=== PATIENT | female | born 1950 | race African-American/Black ===

== ENCOUNTER 2017-02-16 19:21 | Inpatient (IN) | payer MEDICARE, MEDICAID ==
[~2017-02-16] VITALS: Ht 165.1 cm; Wt 140.8 kg
[~2017-02-16 19:21] MED LIST: ALLO300T2 PO; ATOR20TA15 PO; DIAZ5 PO; FURO1TAB60 PO; GABA300C5 PO; HYDR-3535 PO; LANTUS2P SQ; LEVO.05 PO; LISI10TA3 PO; MACR100C2 PO; METO50TA PO; NOVOLOGP2 SQ; PERC5TAB12 PO; STAR120T PO; STAR60TA PO; XARE10TA PO; ZOLO25TA PO
[2017-02-16 19:23] VITALS: BP 141/57; PULSE 81; RESP 22; TEMP 101.6; O2SAT 95
[2017-02-16] MEDS ORDERED: SODIUM CHLOR 0.9% 1000 ML INJ 1,000 ML IV ONE ×2 (19:39)
[2017-02-16] MEDS ORDERED: CITA10TA4 PO (19:43)
[2017-02-16] MEDS ORDERED: ACETAMINOPHEN 325 MG TAB PO ONE (19:45)
[2017-02-16] MEDS ORDERED: METOCLOPRAMIDE HCL 10 MG/2 ML VIAL IV PUSH ONE (19:45)
[2017-02-16] MEDS ORDERED: MORPHINE SULFATE 8 MG/ML INJ IV PUSH ONE (19:45)
--- NOTE | 2017-02-16 19:45 | PD ---
HPI Chief Complaint: Pain: Acute or Chronic Time Seen by Provider: 19:35 Travel History International Travel<30 days: No Contact w/Intl Traveler<30days: No Traveled to known affect area: No History of Present Illness HPI 66-year-old female with history of diabetes, hypertension, here for evaluation of left lower abdominal pain, left hip pain, left flank pain, chest pain, and headache. Patient also complains of generalized malaise. Patient reports left hip pain for a long time. She denies injury. Over the last couple of days she developed left abdominal pain, left chest pain, and left forehead pain which she reports as sharp, constant, no modifying factors. She does feel nauseous but has not vomited. No diarrhea. No cough. No known history of cardiac disease. PFSH Past Medical History Hx Anticoagulant Therapy: Yes Arthritis: Yes Asthma: No Anxiety: Yes Heart Rhythm Problems: No Cancer: No Cardiovascular Problems: Yes High Cholesterol: Yes Chemotherapy: No Chest Pain: No Congestive Heart Failure: No COPD: No Diabetes: Yes Diminished Hearing: No Endocrine: Yes Gastrointestinal Disorders: No Glaucoma: Yes Genitourinary: No Hypertension: Yes Implanted Vascular Access Dvce: No Musculoskeletal: Yes Neurologic: No Reproductive: No Respiratory: Yes Radiation Therapy: No Sleep Apnea: Yes Menopausal: Yes Tubal Ligation: Yes Past Surgical History Other Surgery: Yes (TUBAL LIGATION, R CARPEL TUNNEL, L KNEE) Social History Alcohol Use: Yes (OCCASIONAL) Tobacco Use: No Substance Use: No Allergies-Medications (Allergen,Severity, Reaction): Coded Allergies: Contrast Media (Verified Allergy, Severe, 02/16/17) Uncoded Allergies: dye (Allergy, Mild, 06/16/10) Reported Meds & Prescriptions Reported Meds & Active Scripts Active Valium (Diazepam) 5 Mg Tab 5 Mg PO HS PRN Reported Citalopram (Citalopram Hydrobromide) 10 Mg Tab 10 Mg PO DAILY Starlix (Nateglinide) 120 Mg Tab 120 Mg PO TIDAC Lantus Inj (Insulin Glargine) 1,000 Unit/10 Ml Vial 32 Units SQ HS Novolog Inj (Insulin Aspart) 1,000 Unit/10 Ml Vial 0 SQ DIRECTED Sliding Scale as directed. Xarelto (Rivaroxaban) 10 Mg Tab 10 Mg PO DAILY Allopurinol 300 Mg Tab 300 Mg PO DAILY Atorvastatin (Atorvastatin Calcium) 20 Mg Tab 20 Mg PO DAILY Lortab (Hydrocodone-Acetaminophen) 10-325 Mg Tab 1 Tab PO Q4H PRN Lasix (Furosemide) 40 Mg Tab 40 Mg PO DAILY Synthroid (Levothyroxine Sodium) 50 Mcg Tab 50 Mcg PO DAILY Metoprolol Tartrate 50 Mg Tab 25 Mg PO BID Lisinopril 10 Mg Tab 10 Mg PO DAILY Gabapentin 300 Mg Cap 300 Mg PO BID Review of Systems Except as stated in HPI: all other systems reviewed are Neg Physical Exam Narrative GENERAL: Well-developed, well-nourished, overweight, awake, alert, no acute distress. SKIN: Focused skin assessment warm/dry. No rash. HEAD: Atraumatic. Normocephalic. EYES: Pupils equal and round. No scleral icterus. No injection or drainage. ENT: No nasal bleeding or discharge. Mucous membranes pink and dry. NECK: Trachea midline. No JVD. No nuchal rigidity. CARDIOVASCULAR: Regular rate and rhythm. RESPIRATORY: No accessory muscle use. Clear to auscultation. Breath sounds equal bilaterally. GASTROINTESTINAL: Abdomen soft, round, nondistended. Moderate left lower quadrant tenderness without peritoneal signs. Rest of abdomen is soft and nontender. Normal bowel sounds. MUSCULOSKELETAL: No obvious deformities. No clubbing. No cyanosis. No edema. NEUROLOGICAL: Awake and alert. No obvious cranial nerve deficits. Motor grossly within normal limits. Normal speech. PSYCHIATRIC: Appropriate mood and affect; insight and judgment normal. Data Data Last Documented VS Vital Signs Date Time Temp Pulse Resp B/P Pulse Ox O2 Delivery O2 Flow Rate FiO2 02/16/17 22:12 99.4 74 18 116/48 95 Room Air Orders Electrocardiogram (02/16/17 19:39) Complete Blood Count With Diff (02/16/17 19:39) Comprehensive Metabolic Panel (02/16/17 19:39) Prothrombin Time / Inr (Pt) (02/16/17 19:39) Act Partial Throm Time (Ptt) (02/16/17 19:39) Lactic Acid Sepsis Protocol (02/16/17 19:39) Lipase (02/16/17 19:39) Ckmb (Isoenzyme) Profile (02/16/17 19:39) Troponin I (02/16/17 19:39) Urinalysis - C+S If Indicated (02/16/17 19:39) Influenzae A/B Antigen (02/16/17 19:39) Blood Culture (02/16/17 19:39) Chest, Single Ap (02/16/17 19:39) Blood Glucose (02/16/17 19:39) Ecg Monitoring (02/16/17 19:39) Iv Access Insert/Monitor (02/16/17 19:39) Oximetry (02/16/17 19:39) Oxygen Administration (02/16/17 19:39) Acetaminophen (Tylenol) (02/16/17 19:45) Sodium Chlor 0.9% 1000 Ml Inj (Ns 1000 M (02/16/17 19:39) Sodium Chlor 0.9% 1000 Ml Inj (Ns 1000 M (02/16/17 19:39) Ct Abd/Pel W/O Iv Contrast (02/16/17 19:39) Morphine Inj (Morphine Inj) (02/16/17 19:45) Metoclopramide Inj (Reglan Inj) (02/16/17 19:45) Urine Culture (02/16/17 20:50) Morphine Inj (Morphine Inj) (02/16/17 22:00) Ceftriaxone Inj (Rocephin Inj) (02/16/17 22:00) Admit Order (Ed Use Only) (02/16/17 22:12) Labs Laboratory Tests Test 02/16/17 02/16/17 02/16/17 20:05 20:42 20:50 White Blood Count 13.8 TH/MM3 Red Blood Count 4.40 MIL/MM3 Hemoglobin 11.7 GM/DL Hematocrit 35.1 % Mean Corpuscular Volume 79.7 FL Mean Corpuscular Hemoglobin 26.6 PG Mean Corpuscular Hemoglobin 33.4 % Concent Red Cell Distribution Width 14.6 % Platelet Count 184 TH/MM3 Mean Platelet Volume 12.3 FL Neutrophils (%) (Auto) 82.8 % Lymphocytes (%) (Auto) 10.0 % Monocytes (%) (Auto) 4.6 % Eosinophils (%) (Auto) 0.9 % Basophils (%) (Auto) 1.7 % Neutrophils # (Auto) 11.5 TH/MM3 Lymphocytes # (Auto) 1.4 TH/MM3 Monocytes # (Auto) 0.6 TH/MM3 Eosinophils # (Auto) 0.1 TH/MM3 Basophils # (Auto) 0.2 TH/MM3 CBC Comment AUTO DIFF Differential Comment AUTO DIFF CONFIRMED Platelet Estimate NORMAL Platelet Morphology Comment NORMAL Red Cell Morphology Comment NORMAL Prothrombin Time 12.6 SEC Prothromb Time International 1.1 RATIO Ratio Activated Partial 37.6 SEC Thromboplast Time Sodium Level 139 MEQ/L Potassium Level 5.3 MEQ/L Chloride Level 105 MEQ/L Carbon Dioxide Level 27.3 MEQ/L Anion Gap 7 MEQ/L Blood Urea Nitrogen 24 MG/DL Creatinine 1.90 MG/DL Estimat Glomerular Filtration 32 ML/MIN Rate Random Glucose 221 MG/DL Lactic Acid Level 1.6 mmol/L Calcium Level 8.7 MG/DL Total Bilirubin 0.7 MG/DL Aspartate Amino Transf 25 U/L (AST/SGOT) Alanine Aminotransferase 32 U/L (ALT/SGPT) Alkaline Phosphatase 107 U/L Total Creatine Kinase 90 U/L Troponin I LESS THAN 0.02 NG/ML Total Protein 7.8 GM/DL Albumin 3.0 GM/DL Lipase 96 U/L Urine Color YELLOW Urine Turbidity SLIGHT Urine pH 5.5 Urine Specific Winston 1.014 Urine Protein 100 mg/dL Urine Glucose (UA) NEG mg/dL Urine Ketones TRACE mg/dL Urine Occult Blood TRACE Urine Nitrite NEG Urine Bilirubin NEG Urine Leukocyte Esterase NEG Urine RBC 0-3 /hpf Urine WBC 0-2 /hpf Urine Squamous Epithelial 6-8 /hpf Cells Urine Bacteria MOD /hpf Urine Hyaline Casts 3-5 /lpf Urine Mucus OCC /lpf Microscopic Urinalysis Comment CULTURE INDICATED MDM Medical Decision Making Medical Screen Exam Complete: Yes Emergency Medical Condition: Yes Interpretation(s) EKG: Sinus, rate 80, left axis, normal intervals, no acute ischemic abnormality. Differential Diagnosis Sepsis, colitis, diverticulitis, UTI, cystitis, pyelonephritis, nephrolithiasis , pneumonia, ACS, pneumothorax, PE, meningitis/encephalitis/SAH unlikely Narrative Course Initial vital signs show heart rate 81, blood pressure 141/57, pulse ox 95% on room air, oral temp of 101.6 reason Fahrenheit. CBC shows WBC 13.8, hemoglobin 11.7, hematocrit 35.1, platelets 184, neutrophils 83%. CMP is remarkable for potassium 5.3 with slight hemolysis, BUN 24, creatinine 1.9, GFR 32 Lipase is 96. UA is suggestive of UTI. Chest x-ray: CONCLUSION: Left basilar density likely scarring. CT abdomen pelvis: CONCLUSION: 1. No acute inflammatory process. 2. Enlarged uterus with suspected mass. Neoplastic etiology cannot be excluded. Nonemergent pelvic sonogram recommended. 3. Diverticulosis of the colon. Patient and the patient's family were made aware of all findings. Patient is still complaining of headache which is left frontal, however somewhat improved after morphine. She is a systolic complaining of left-sided abdominal pain. She was started on Rocephin for her UA findings. She still febrile despite receiving a dose of Tylenol. Patient is still complaining of generalized malaise and states that she lives alone and does not feel safe being discharged home at this time. She does meet SIRS criteria. She will be admitted for overnight observation. Case discussed with [facility] hospitalist Dr. Ruby. The patient will be admitted to their service under Dr. Landin. Procedures Procedure Narrative Ultrasound-guided peripheral IV: Because of difficult IV access, was asked by my nurse to place an ultrasound- guided IV line. Using the linear ultrasound probe, a 20-gauge IV catheter was placed in the left antecubital fossa. Site prepped with ChloraPrep prior to insertion. Tolerated well. No complications. Diagnosis Primary Impression: UTI (urinary tract infection) Qualified Code: N39.0 - Urinary tract infection without hematuria, site unspecified Additional Impressions: SIRS (systemic inflammatory response syndrome) Malaise Uterine mass Admitting Information Admitting Physician Requests: Observation Lalito Vasquez MD Feb 16, 2017 19:45
--- NOTE | 2017-02-16 20:07 | RADHPO ---
EXAM DATE/TIME: 02/16/2017 19:59 [facility] COMPARISON: CHEST SINGLE AP, September 12, 2015, 17:55. INDICATIONS : Chest pain. MEDICAL HISTORY : Hypertension. Diabetes mellitus type II. SURGICAL HISTORY : None. ENCOUNTER: Initial ACUITY: 1 day PAIN SCORE: 4/10 LOCATION: Bilateral chest FINDINGS: A single view of the chest demonstrates left basilar density likely scarring. Heart enlarged. Right lung clear. Osseous structures are intact. CONCLUSION: Left basilar density likely scarring. Vitaly Roberson MD on February 16, 2017 at 20:05 Board Certified Radiologist. This report was verified electronically.
--- NOTE | 2017-02-16 20:31 | RADHPO ---
EXAM DATE/TIME: 02/16/2017 20:01 [facility] COMPARISON: No previous studies available for comparison. INDICATIONS : Left lower quadrant abdominal pain. ORAL CONTRAST: No oral contrast ingested. RADIATION DOSE: 22.34 CTDIvol (mGy) MEDICAL HISTORY : Diabetes mellitus type 2. Hypertension. SURGICAL HISTORY : Tubal ligation. ENCOUNTER: Initial ACUITY: 2 days PAIN SCALE: 9/10 LOCATION: Left lower quadrant TECHNIQUE: Volumetric scanning of the abdomen and pelvis was performed. Using automated exposure control and ad justment of the mA and/or kV according to patient size, radiation dose was kept as low as reasonably achievable to obtain optimal diagnostic quality images. FINDINGS: LOWER LUNGS: The visualized lower lungs are clear. LIVER: Homogeneous density without lesion. There is no dilation of the biliary tree. No calcified gallston es. SPLEEN: Normal size without lesion. PANCREAS: Within normal limits. KIDNEYS: Normal in size and shape. There is no mass, stone, or hydronephrosis. ADRENAL GLANDS: Within normal limits. VASCULAR: There is no aortic aneurysm. BOWEL/MESENTERY: Diverticulosis of the descending and sigmoid colon without diverticulitis. There is no free intraper itoneal air or fluid. ABDOMINAL WALL: Within normal limits. RETROPERITONEUM: There is no lymphadenopathy. BLADDER: No wall thickening or mass. REPRODUCTIVE: Enlarged uterus with possible mass. INGUINAL: There is no lymphadenopathy or hernia on the right. Fat-containing left inguinal hernia. MUSCULOSKELETAL: Within normal limits for patient age. CONCLUSION: 1. No acute inflammatory process. 2. Enlarged uterus with suspected mass. Neoplastic etiology cannot be excluded. Nonemergent pelvic so nogram recommended. 3. Diverticulosis of the colon. Vitaly Roberson MD on February 16, 2017 at 20:25 Board Certified Radiologist. This report was verified electronically.
[2017-02-16 20:33] LABS: AUTOMATED NEUTROPHIL # 11.5 TH/MM3 (1.8-7.7); BASOPHIL # 0.2 TH/MM3 (0-0.2); BASOPHIL % 1.7 % (0.0-2.0); EOSINOPHIL # 0.1 TH/MM3 (0-0.4); EOSINOPHIL % 0.9 % (0.0-4.0); HEMATOCRIT 35.1 % (35.0-46.0); LYMPHOCYTE # 1.4 TH/MM3 (1.0-4.8); MEAN CELL VOLUME 79.7 FL (80.0-100.0); MEAN CORPUSCULAR HEMOGLOBIN 26.6 PG (27.0-34.0); MEAN CORPUSCULAR HGB CONC 33.4 % (32.0-36.0); MONO % 4.6 % (0.0-8.0); NEUT % 82.8 % (16.0-70.0); PLATELET COUNT 184 TH/MM3 (150-450); RED CELL DISTRIBUTION WIDTH 14.6 % (11.6-17.2); WHITE BLOOD COUNT 13.8 TH/MM3 (4.0-11.0)
[2017-02-16 20:34] LABS: HEMO FLAGS AUTO DIFF
[2017-02-16 20:59] LABS: PLATELET ESTIMATE SMEAR NORMAL (NORMAL); PLATELET MORPHOLOGY NORMAL (NORMAL); SCAN/DIFF AUTO DIFF CONFIRMED
[2017-02-16 21:00] VITALS: BP 142/48; PULSE 78; RESP 18; TEMP 100.6; O2SAT 95
[2017-02-16 21:05] LABS: CHLORIDE 105 MEQ/L (98-107); SODIUM (NA) 139 MEQ/L (136-145)
[2017-02-16 21:09] LABS: ANION GAP 7 MEQ/L (5-15); BICARBONATE 27.3 MEQ/L (21.0-32.0)
[2017-02-16 21:10] LABS: APTT (PATIENT) 37.6 SEC (24.3-30.1); BLOOD UREA NITROGEN 24 MG/DL (7-18); INTERNATIONAL NORMALIZED RATIO 1.1 RATIO; PROTHROMBIN TIME - PATIENT 12.6 SEC (9.8-11.6)
[2017-02-16 21:12] LABS: ALT (GPT) 32 U/L (10-53); AST (GOT) 25 U/L (15-37); GLOMERULAR FILTRATION RATE 32 ML/MIN (>89)
[2017-02-16 21:15] LABS: ALKALINE PHOSPHATASE 107 U/L (45-117)
[2017-02-16 21:22] LABS: POTASSIUM 5.3 MEQ/L (3.5-5.1)
[2017-02-16 21:24] LABS: BLOOD, URINE TRACE (NEG); GLUCOSE,URINE NEG (NEG); KETONE, URINE TRACE mg/dL (NEG); NITRITE,URINE NEG (NEG); PH, URINE 5.5 (5.0-8.5)
[2017-02-16 21:26] LABS: TOTAL BILIRUBIN ADULT 0.7 MG/DL (0.2-1.0)
[2017-02-16 21:42] VITALS: BP 129/49; PULSE 70; RESP 20; TEMP 100.3; O2SAT 94
[2017-02-16 21:47] LABS: CREATINE KINASE 90 U/L (26-192)
[2017-02-16 21:51] LABS: MUCUS URINE OCC /lpf (OCC); URINE COLOR YELLOW (YELLW/STRAW)
[2017-02-16 21:52] LABS: RBC, URINE 0-3 /hpf (0-3); WBC, URINE 0-2 /hpf (0-5)
[2017-02-16 21:53] LABS: BACTERIA, URINE MOD /hpf; COMMENT (UR) CULTURE INDICATED; CULTURE IF INDICATED CULTURE INDICATED
[2017-02-16] MEDS ORDERED: cefTRIAXone INJ 1,000 MG in SODIUM CHLORIDE 0.9% INJ 100 ML IV ONE (22:00)
[2017-02-16] MEDS ORDERED: MORPHINE SULFATE 4 MG/ML INJ IV PUSH ONE (22:00)
[2017-02-16] MEDS ORDERED: HEPARIN SODIUM - SQ 10,000 UNITS/ML VIAL SQ SCH (22:00)
[2017-02-16 22:12] VITALS: BP 116/48; PULSE 74; RESP 18; TEMP 99.4; O2SAT 95
[2017-02-16] MEDS ORDERED: SENNOSIDES 8.6 MG TAB PO PRN (22:15)
[2017-02-16] MEDS ORDERED: LACTULOSE SYRUP 20 GM/30 ML CUP PO PRN (22:15)
[2017-02-16] MEDS ORDERED: MAGNESIUM HYDROXIDE SUSP 30 ML CUP PO PRN (22:15)
[2017-02-16] MEDS ORDERED: NALOXONE HCL 0.4 MG/ML AMP IV PRN (22:15)
[2017-02-16] MEDS ORDERED: BISACODYL 10 MG SUPP RECTAL PRN (22:15)
[2017-02-16] MEDS: cefTRIAXone INJ 1,000 MG in SODIUM CHLORIDE 0.9% INJ 100 ML IV SCH (22:44)
[2017-02-16] MEDS ORDERED: DEXTROSE 50% IN WATER 50 ML VIAL(D50) IV PRN (23:00)
[2017-02-16] MEDS ORDERED: GLUCAGON 1 MG/ML VIAL OTHER PRN (23:00)
[2017-02-16] MEDS ORDERED: INSULIN DETEMIR 100 UNITS/ML VIAL SQ ONE ×2 (23:45)
[2017-02-17] MEDS: INSULIN NovoLIN REGULAR SUPPLEMENTAL SCALE SQ SCH ×5 (00:04→21:27)
[2017-02-17 00:25] VITALS: BP 135/54; PULSE 60; RESP 20; TEMP 98.4; O2SAT 96
[2017-02-17] MEDS: ACETAMINOPHEN/HYDROcodone 325 MG/10 MG TAB PO PRN ×5 (00:53→21:22)
[2017-02-17 06:00] LABS: AUTOMATED NEUTROPHIL # 8.9 TH/MM3 (1.8-7.7); BASOPHIL # 0.1 TH/MM3 (0-0.2); BASOPHIL % 0.6 % (0.0-2.0); EOSINOPHIL # 0.2 TH/MM3 (0-0.4); EOSINOPHIL % 1.4 % (0.0-4.0); HEMATOCRIT 31.5 % (35.0-46.0); HEMO FLAGS DIFF FINAL; LYMPHOCYTE # 3.2 TH/MM3 (1.0-4.8); MEAN CELL VOLUME 81.9 FL (80.0-100.0); MEAN CORPUSCULAR HEMOGLOBIN 26.8 PG (27.0-34.0); MEAN CORPUSCULAR HGB CONC 32.7 % (32.0-36.0); MONO % 6.3 % (0.0-8.0); NEUT % 67.7 % (16.0-70.0); PLATELET COUNT 154 TH/MM3 (150-450); RED BLOOD COUNT 3.85 MIL/MM3 (4.00-5.30); RED CELL DISTRIBUTION WIDTH 14.6 % (11.6-17.2); WHITE BLOOD COUNT 13.2 TH/MM3 (4.0-11.0)
[2017-02-17 06:03] LABS: POTASSIUM 4.5 MEQ/L (3.5-5.1)
[2017-02-17 06:08] LABS: BICARBONATE 28.5 MEQ/L (21.0-32.0)
[2017-02-17] MEDS: LEVOTHYROXINE SODIUM 50 MCG TAB PO SCH (06:23)
[2017-02-17 08:00] VITALS: BP 122/67; PULSE 53; RESP 20; TEMP 96.3; O2SAT 95
[2017-02-17] MEDS ORDERED: NATEGLINIDE 120 MG PO SCH (08:00)
[2017-02-17] MEDS: METOPROLOL TARTRATE 25 MG TAB PO SCH ×2 (08:02→21:21)
[2017-02-17] MEDS: ALLOPURINOL 300 MG TAB PO SCH (08:20)
[2017-02-17] MEDS: SODIUM CHLORIDE 0.9% FLUSH 10 ML FLUSH IV FLUSH SCH ×2 (08:21→21:00)
[2017-02-17] MEDS: ATORVASTATIN 20 MG TAB PO SCH (08:21)
[2017-02-17] MEDS: GABAPENTIN 300 MG CAP PO SCH ×2 (08:21→21:21)
[2017-02-17] MEDS: FUROSEMIDE 40 MG TAB PO SCH (08:21)
[2017-02-17] MEDS: CITALOPRAM HYDROBROMIDE 20 MG TAB PO SCH (08:21)
[2017-02-17] MEDS: HEPARIN SODIUM - SQ 10,000 UNITS/ML VIAL SQ SCH ×2 (08:22→21:22)
[2017-02-17] MEDS: DOCUSATE SODIUM 50 MG/SENNA 8.6 MG TAB PO SCH ×2 (08:22→21:00)
[2017-02-17 08:51] LABS: MAGNESIUM 2.6 MG/DL (1.5-2.5)
[2017-02-17] MEDS ORDERED: RIVAROXABAN 10 MG TAB PO SCH ×2 (09:00)
--- NOTE | 2017-02-17 09:13 | MH ---
cc: DARIUSZ DAHL MD DATE OF ADMISSION: 02/16/2017 CHIEF COMPLAINT Acute on chronic pain in the hip and headache. HISTORY OF PRESENT ILLNESS This is a 66-year-old morbidly obese -[place] female with past medical-surgical history significant for DVT left leg, history of arthritis, anxiety, morbid obesity, hyperlipidemia, diabetes mellitus, hypertension, history of sleep apnea, history of glaucoma, tubal ligation, right carpal tunnel surgery and left knee surgery, came to the ER at [facility] complaining of left lower quadrant abdominal pain, left hip pain and left flank pain and headache. The patient is complaining of generalized malaise. The patient reports left hip pain, had a long time but denies any injury. Over a couple of days she developed left abdominal pain and left side whole-body pain and also complaining of headache. The pain in the left hip is about 5-6 on scale of 10, constant and dull in nature. No radiation, worse with movement. She also had some headache which is diffuse generalized, 4-5/10, dull and no radiation. Denies any nausea or vomiting. No diarrhea and no constipation. No cough, no history of any cardiac disease. Denies any chest pain at the time of examination. Denies any fever or chills, cough. Denies any blood in stool, black stool. Denies any urinary tract infection symptoms. Denies any neurological symptoms other than headache. Other than that nothing significant. PAST MEDICAL AND SURGICAL HISTORY As dictated above. Also significant for diabetic neuropathy, hypothyroidism, arthritis, gout. SOCIAL HISTORY She drinks alcohol socially. Denies any smoking or drug abuse. Lives at home alone. 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 FAMILY HISTORY Significant for diabetes. ALLERGIES CONTRAST MEDIA, IVP DYE. MEDICATIONS Include: 1. Valium 5 mg p.o. at bedtime p.r.n. for insomnia. 2. Citalopram 10 mg p.o. daily. 3. Starlix 120 mg p.o. t.i.d. 4. Lantus 32 units p.o. at bedtime. 5. NovoLog injection. According to sliding scale. 6. Xarelto 10 mg p.o. daily. 7. Allopurinol 300 mg p.o. daily. 8. Lipitor 20 mg p.o. daily. 9. Lortab 10/325 p.o. q.4 hour p.r.n. pain. 10. Lasix 40 mg p.o. daily. 11. Synthroid 50 mcg p.o. daily. 12. Metoprolol tartrate 50 mg p.o. b.i.d. 13. Lisinopril 10 mg p.o. daily. 14. Gabapentin 300 mg p.o. b.i.d. REVIEW OF SYSTEMS Positive for left hip pain and headache and moderate obesity. All other review of systems are negative. PHYSICAL EXAMINATION GENERAL: This is a 66-year-old morbidly obese female laying on the bed, not in acute distress. VITAL SIGNS: Temperature 98.4, heart rate 60, respirations 20, blood pressure 135/54, O2 saturation 96% on room air. HEENT: Normocephalic, atraumatic. EOMI. PERRL. Oral mucosa moist. NECK: Neck is supple. No visible thyromegaly or neck mass. Trachea central. Generalized morbidly obese. CVS: Regular rate and rhythm. RESPIRATIONS: Clear to auscultation bilaterally. ABDOMEN: Obese, nontender. Bowel sounds audible. EXTREMITIES: No cyanosis or clubbing. Full range of motion of all extremities. NEURO: Awake, alert, oriented x4. No focal deficits. SKIN: Warm and dry. PSYCHE: The patient is cooperative. Mood and affect is normal. LABORATORY DATA Include CBC showed WBC count is high at 13.2. RBC count is low 3.85, hemoglobin low 10.3, hematocrit low 31.5, MCH is low 26.8, platelet count is normal 154. BMP totally unremarkable except for BUN 25 high, creatinine 1.50 high and potassium was 5.3, now it is 4.5, GFR low 42, glucose high 157, calcium 8.2 low. LFTs are normal. Troponin I less than 0.02, albumin 3.0, lipase 96. Total protein 7.8 normal. PT 12.6 high, INR 1.1, APTT 37.6 high. Urine examination done showed trace of ketone, trace of occult blood, 0-3 RBC, 0-2 WBC, 6-8 squamous epithelial cells, moderate bacteria, culture indicated. Urine culture pending. Influenza A and B negative. Blood cultures x2 done negative so far. IMAGING STUDIES Chest x-ray was done and shows left basilar density likely scarring. CT abdomen and pelvis was done and shows no acute inflammatory process, enlarged uterus and suspected mass, neoplastic etiology cannot be excluded, nonemergent pelvic sonogram recommended. Diverticulosis of the colon. ASSESSMENT/PLAN 1. This is a 66-year-old female who came to the ER diagnosed with left hip pain. Check MRI of the left hip. The patient is on pain medicine, will monitor. 2. Left lower quadrant abdominal pain. The patient's CT abdomen and pelvis done shows enlarged uterus with suspected mass neoplastic etiology cannot be excluded, PUPPET MASTER consulted. Check pelvic ultrasound. 3. Diabetes mellitus. ADA 1800 calorie diet. NovoLog low-dose sliding scale. Check blood sugars a.c. and h.s. 4. Headache. Check CT brain, continue with home medication. 5. History of GOUT. Continue home medication. Allopurinol 300 mg p.o. daily. 6. History of hyperlipidemia. Continue with Lipitor 20 mg p.o. daily. 7. History of depression. Continue with Celexa 10 mg p.o. daily. 8. Diabetic neuropathy. Continue with gabapentin 300 mg twice a day. 9. History of left leg DVT. Continue with Xarelto 10 mg p.o. daily. 10. History of hypothyroidism. Continue with levothyroxine 50 mcg p.o. daily. 11. History of insomnia. Continue with diazepam 5 mg p.o. at bedtime. 12. History of constipation. Continue with laxative. 13. Renal insufficiency which is improving. Will monitor. 14. Hyperkalemia which has resolved. 15. Leukocytosis. Will monitor. 16. Anemia. Check iron study, B12, folic acid level. 17. DVT prophylaxis. The patient is on Xarelto. 18. GI prophylaxis with Protonix 40 mg p.o. daily. 19. We are going to manage the patient on a daily basis and make recommendation on a daily basis. Dariusz Dahl MD EA/AMOR /8:23 AM /8:40 AM
[2017-02-17] MEDS: PANTOPRAZOLE SOD 40 MG DELAYED RELEASE TAB PO SCH (09:26)
--- NOTE | 2017-02-17 09:34 | RADHPO ---
EXAM DATE/TIME: 02/17/2017 08:51 [facility] COMPARISON: CT ABDOMEN & PELVIS W/O CONTRAST, February 16, 2017, 20:01. INDICATIONS : Abnormal CT. MEDICAL HISTORY : Hypercholesterolemia. Hypothyroidism. Chronic obstructive pulmonary disease. Hypertension. Sleep apne a. Arthritis. Gout. Glaucoma. SURGICAL HISTORY : Tubal ligation. Total knee replacement, right. ENCOUNTER: Initial ACUITY: 1 day PAIN SCORE: 1/10 LOCATION: Bilateral pelvis MEASUREMENTS: UTERUS: 13.3 x 9.3 x 9.8 cm ENDOMETRIAL STRIPE: 16 mm RIGHT OVARY: 2.6 x 1.6 x 2.1 cm LEFT OVARY: Non visualized FINDINGS: UTERUS: The uterus is enlarged and does contain a 7.6 cm complex mass within the uterus. RIGHT OVARY: Ovary contains no mass or significant cystic lesion. LEFT OVARY: Unable to visualize. MISCELLANEOUS: No free fluid. CONCLUSION: Patient refused transvaginal exam. Complex mass within the uterus with differential diagnosis rangin g from carcinoma to degenerated fibroid. Nonvisualization left ovary There is no free fluid. Martin Buck MD FACR on February 17, 2017 at 9:30 Board Certified Radiologist. This report was verified electronically.
--- NOTE | 2017-02-17 11:06 | RADHPO ---
EXAM DATE/TIME: 02/17/2017 10:43 [facility] COMPARISON: No previous studies available for comparison. INDICATIONS : Headache and generalized malaise. RADIATION DOSE: 62.00 CTDIvol (mGy) MEDICAL HISTORY : Hypertension. Chronic obstructive pulmonary disease. Anticoagulant therapy. Renal disease. Diabetes. SURGICAL HISTORY : Tubal ligation. ENCOUNTER: Initial ACUITY: 3 days PAIN SCALE: 3/10 LOCATION: frontal TECHNIQUE: Multiple contiguous axial images were obtained of the head. Using automated exposure control and adj ustment of the mA and/or kV according to patient size, radiation dose was kept as low as reasonably a chievable to obtain optimal diagnostic quality images. FINDINGS: CEREBRUM: The ventricles are normal for age. No evidence of midline shift, mass lesion, hemorrhage or acute in farction. No extra-axial fluid collections are seen. POSTERIOR FOSSA: The cerebellum and brainstem are intact. The 4th ventricle is midline. The cerebellopontine angle i s unremarkable. EXTRACRANIAL: The visualized portion of the orbits is intact. SKULL: The calvaria is intact. No evidence of skull fracture. CONCLUSION: 1. No acute intracranial abnormality. Unremarkable CT examination of the head. Darryl Vanessa MD on February 17, 2017 at 11:00 Board Certified Radiologist. This report was verified electronically.
--- NOTE | 2017-02-17 11:21 | EKG ---
Date Performed: 02/16/2017 Time Performed: 19:50:06 PTAGE: 66 years EKG: Sinus rhythm . Lateral ST-T changes are nonspecific Borderline ECG Compared to prior tracing no significant change PREVIOUS TRACING : 07/27/2016 19.25 DOCTOR: Vito Dixon Interpretating Date/Time 02/17/2017 11:18:53
[2017-02-17 11:30] LABS: TRANSFERRIN IRON PROFILE 153 MG/DL (200-360)
[2017-02-17 11:55] LABS: FERRITIN 223 NG/ML (8-252); FREE T4 1.01 NG/DL (0.76-1.46)
[2017-02-17 12:00] VITALS: BP 107/56; PULSE 55; RESP 21; TEMP 96.9; O2SAT 93
--- NOTE | 2017-02-17 12:59 | RADHPO ---
EXAM DATE/TIME: 02/17/2017 11:09 [facility] COMPARISON: US PELVIS COMP W/TRANSVAGINAL, February 17, 2017, 11:59. CT ABDOMEN & PELVIS W/O CONTRAST, February 16, 2017 , 20:01. INDICATIONS : Left hip pain for two days. MEDICAL HISTORY : Diabetes mellitus type 2. Hypertension. Renal failure, chronic. SURGICAL HISTORY : Tubal ligation. Right knee replacement, right carpal tunnel sx. ENCOUNTER: Initial ACUITY: 2 day PAIN SCORE: 9/10 LOCATION: Left lateral side of hip. TECHNIQUE: Multiplanar, multisequence MRI examination was performed without contrast. FINDINGS: BONE/CARTILAGE: Small bilateral hip osteophytes. Moderate severity posterior left hip articular cartilage thinning.. LABRUM: Superior labrum is not well evaluated on this study due to adjacent artifact. The anterior labrum and posterior labrum within normal limits. MUSCLES/TENDONS: All of the visualized muscles and tendons are intact. MISCELLANEOUS: Large left-sided uterine mass measuring 10.6 x 7.1 cm on the coronal images. Heterogeneous hyperinten sity on both the T1-weighted and T2-weighted images indicating likely hemorrhagic products within the mass. CONCLUSION: 1. Osteoarthritic findings of the hips with small osteophytes and moderate severity posterior articul ar cartilage thinning on the left. 2. Large left-sided uterine mass with central hemorrhagic products. Maicol Ramirez MD on February 17, 2017 at 12:49 Board Certified Radiologist. This report was verified electronically.
--- NOTE | 2017-02-17 13:04 | RADHPO ---
EXAM DATE/TIME: 02/17/2017 11:59 [facility] COMPARISON: CT ABDOMEN & PELVIS W/O CONTRAST, February 16, 2017, 20:01. CT ABDOMEN & PELVIS W/O CONTRAST, July 162015, 19:19. INDICATIONS : Abnormal CT. MEDICAL HISTORY : Hypercholesterolemia. Chronic obstructive pulmonary disease. Hypertension. Arthritis. Gout. SURGICAL HISTORY : Tubal ligation. Total knee replacement, right. ENCOUNTER: Initial ACUITY: 1 day PAIN SCORE: 2/10 LOCATION: Bilateral pelvis MEASUREMENTS: UTERUS: 13.7 x 9.0 x 10.3 cm ENDOMETRIAL STRIPE: Non visualized RIGHT OVARY: Non visualized LEFT OVARY: Non visualized FINDINGS: UTERUS: Large left posterior fundal uterine mass is again identified. It is predominantly hyperechoic measuri ng 6.1 x 6.5 x 6.8 cm on this examination. It measures approximately [address] and MRI. RIGHT OVARY: Not visualized. LEFT OVARY: Not visualized. MISCELLANEOUS: No free fluid. CONCLUSION: Large predominantly hyperechoic left-sided fundal uterine mass. MRI hip suggests hemorrhagic material within the mass. Potential diagnosis remains large fibroid versus uterine malignancy. Maicol Ramirez MD on February 17, 2017 at 12:58 Board Certified Radiologist. This report was verified electronically.
[2017-02-17 16:00] VITALS: BP 136/68; PULSE 65; RESP 19; TEMP 97.3; O2SAT 94
[2017-02-17 20:00] VITALS: BP 140/62; PULSE 63; RESP 18; TEMP 97.6; O2SAT 93
[2017-02-17] MEDS: cefTRIAXone INJ 1,000 MG in SODIUM CHLORIDE 0.9% INJ 100 ML IV SCH (21:21)
[2017-02-17] MEDS: DIAZEPAM 5 MG TAB PO PRN (21:22)
[2017-02-17] MEDS: INSULIN DETEMIR 100 UNITS/ML VIAL SQ SCH (21:27)
[2017-02-18] VITALS (7 sets, daily range): BP systolic 128–158; BP diastolic 64–78; PULSE 56–61; RESP 17–20; TEMP 97.5–98.6; O2SAT 92–98
[2017-02-18] MEDS: ACETAMINOPHEN/HYDROcodone 325 MG/10 MG TAB PO PRN ×5 (02:48→23:01)
[2017-02-18] MEDS: LEVOTHYROXINE SODIUM 50 MCG TAB PO SCH (06:16)
[2017-02-18] MEDS: INSULIN NovoLIN REGULAR SUPPLEMENTAL SCALE SQ SCH ×4 (06:18→21:35)
[2017-02-18 07:51] LABS: CHLORIDE 107 MEQ/L (98-107); POTASSIUM 4.7 MEQ/L (3.5-5.1); SODIUM (NA) 141 MEQ/L (136-145)
--- NOTE | 2017-02-18 07:51 | HHI.PR ---
Review of Systems Constitutional Constitutional: Fatigue, Weakness GI/Abdomen GI/Abdominal Exam: Abdominal Pain Vitals/Results Intake & Output 02/17/17 02/17/17 02/18/17 15:00 23:00 07:00 Intake Total 480 ml 100 ml Balance 480 ml 100 ml Intake Oral 480 ml IV Total 100 ml # Voids 3 Vital Signs Vital Signs Date Time Temp Pulse Resp B/P Pulse Ox O2 Delivery O2 Flow Rate FiO2 02/18/17 03:48 18 02/18/17 00:00 97.5 59 20 128/64 97 02/17/17 20:00 97.6 63 18 140/62 93 02/17/17 16:00 97.3 65 19 136/68 94 02/17/17 12:00 96.9 55 21 107/56 93 02/17/17 08:00 96.3 53 20 122/67 95 CBC/BMP: 02/17/17 0455 02/17/17 0455 Physical Exam General General Appearance: Well Developed, Well Nourished, No Acute Distress, Comfortable Eyes Eye Exam: Pupils Equal, Pupils Reactive, Sclera White, Extraocular Movement Intact Ears & Nose Ears & Nose Exam: Nasal Mucosa [place], Septum Midline Throat Throat Exam: Oral Mucosa [place] & Moist Neck Neck Exam: Neck Supple, Trachea Midline Pulmonary Resp Exam: Clear Bilaterally, Breath Sounds Equal Cardiology CV Exam: Regular, Normal Sinus Rhythm Gastrointestinal/Abdomen GI Exam: Soft, Non-Tender, Bowel Sounds Present Musculoskeletal MS Exam: Normal Tone Integumentary Skin Exam: Warm, Dry Extremeties Extremities Exam: No Edema Neurologic Neuro Exam: Alert, Awake, Oriented, Speech Clear, Moving All Extremities, No Focal Deficits Psychiatric Psych Exam: Appropriate Responses VTE Prophylaxis VTE Prophylaxis Device: SCDs PUD Prophylasis PUD Prophylaxis: Protonix Assessment/Plan Assessment/Plan ASSESSMENT/PLAN 1. This is a 66-year-old female who came to the ER diagnosed with left hip pain. Checked MRI of the left hip..noted . The patient is on pain medicine, will monitor. 2. Left lower quadrant abdominal pain. The patient's CT abdomen and pelvis done shows enlarged uterus with suspected mass neoplastic etiology cannot be excluded, ..INTERNATIONAL SALES REPRESENTATIVE consulted. Checked pelvic ultrasound noted. 3. Diabetes mellitus. ADA 1800 calorie diet. NovoLog low-dose sliding scale. Check blood sugars a.c. and h.s. 4. Headache. Checked CT brain, noting acute..continue with home medication. 5. History of GOUT. Continue home medication. Allopurinol 300 mg p.o. daily. 6. History of hyperlipidemia. Continue with Lipitor 20 mg p.o. daily. 7. History of depression. Continue with Celexa 10 mg p.o. daily. 8. Diabetic neuropathy. Continue with gabapentin 300 mg twice a day. 9. History of left leg DVT. Continue with Xarelto 10 mg p.o. daily. 10. History of hypothyroidism. Continue with levothyroxine 50 mcg p.o. daily. 11. History of insomnia. Continue with diazepam 5 mg p.o. at bedtime. 12. History of constipation. Continue with laxative. 13. Renal insufficiency which is improving. Will monitor. 14. Hyperkalemia which has resolved. 15. Leukocytosis. resolved. 16. Anemia. Check iron study, B12, folic acid level...noted have Iron deficiency replacement started. 17. DVT prophylaxis. The patient is on Xarelto. 18. GI prophylaxis with Protonix 40 mg p.o. daily. 19. We are going to manage the patient on a daily basis and make recommendation on a daily basis. Check CBC with diff CMP in AM. Discussed Condition with: Patient Dariusz Landin MD Feb 18, 2017 07:51
[2017-02-18 07:53] LABS: AUTOMATED NEUTROPHIL # 6.6 TH/MM3 (1.8-7.7); BASOPHIL % 0.5 % (0.0-2.0); EOSINOPHIL # 0.3 TH/MM3 (0-0.4); EOSINOPHIL % 2.8 % (0.0-4.0); HEMATOCRIT 33.1 % (35.0-46.0); HEMO FLAGS DIFF FINAL; LYMPH % 20.6 % (9.0-44.0); MEAN CELL VOLUME 82.1 FL (80.0-100.0); MEAN CORPUSCULAR HEMOGLOBIN 26.3 PG (27.0-34.0); NEUT % 69.1 % (16.0-70.0); PLATELET COUNT 158 TH/MM3 (150-450); RED BLOOD COUNT 4.03 MIL/MM3 (4.00-5.30); RED CELL DISTRIBUTION WIDTH 14.5 % (11.6-17.2); WHITE BLOOD COUNT 9.6 TH/MM3 (4.0-11.0)
[2017-02-18 07:57] LABS: ANION GAP 6 MEQ/L (5-15); BLOOD UREA NITROGEN 20 MG/DL (7-18)
[2017-02-18 08:00] LABS: ALT (GPT) 22 U/L (10-53); AST (GOT) 10 U/L (15-37); GLOMERULAR FILTRATION RATE 49 ML/MIN (>89)
[2017-02-18 08:02] LABS: TOTAL BILIRUBIN ADULT 0.4 MG/DL (0.2-1.0)
[2017-02-18 08:03] LABS: ALKALINE PHOSPHATASE 95 U/L (45-117)
[2017-02-18] MEDS: GABAPENTIN 300 MG CAP PO SCH ×2 (08:44→20:43)
[2017-02-18] MEDS: PANTOPRAZOLE SOD 40 MG DELAYED RELEASE TAB PO SCH (08:44)
[2017-02-18] MEDS: HEPARIN SODIUM - SQ 10,000 UNITS/ML VIAL SQ SCH ×2 (08:44→20:41)
[2017-02-18] MEDS: ALLOPURINOL 300 MG TAB PO SCH (08:45)
[2017-02-18] MEDS: CITALOPRAM HYDROBROMIDE 20 MG TAB PO SCH (08:45)
[2017-02-18] MEDS ORDERED: POTASSIUM CHLORIDE 25 MEQ EFFERVESCENT TAB PO ONE (08:45)
[2017-02-18] MEDS: DOCUSATE SODIUM 50 MG/SENNA 8.6 MG TAB PO SCH ×2 (08:46→20:42)
[2017-02-18] MEDS: METOPROLOL TARTRATE 25 MG TAB PO SCH ×2 (08:46→20:41)
[2017-02-18] MEDS: ATORVASTATIN 20 MG TAB PO SCH (08:47)
[2017-02-18] MEDS: FUROSEMIDE 40 MG TAB PO SCH (08:47)
[2017-02-18] MEDS: SODIUM CHLORIDE 0.9% FLUSH 10 ML FLUSH IV FLUSH SCH ×2 (08:49→20:43)
[2017-02-18] MEDS ORDERED: INFLUENZA VIRUS VACCINE (QUADRIVALENT) 0.5 ML SYR IM ONE (10:00)
[2017-02-18] MEDS: cefTRIAXone INJ 1,000 MG in SODIUM CHLORIDE 0.9% INJ 100 ML IV SCH (20:40)
[2017-02-18] MEDS: INSULIN DETEMIR 100 UNITS/ML VIAL SQ SCH (20:43)
[2017-02-18] MEDS: DIAZEPAM 5 MG TAB PO PRN (21:33)
[2017-02-19] VITALS: BP 172/72; PULSE 56; RESP 20; TEMP 98; O2SAT 98
[2017-02-19 04:00] VITALS: BP 151/77; PULSE 53; RESP 20; TEMP 97.4; O2SAT 94
[2017-02-19 05:51] LABS: AUTOMATED NEUTROPHIL # 6.6 TH/MM3 (1.8-7.7); BASOPHIL # 0.1 TH/MM3 (0-0.2); BASOPHIL % 0.5 % (0.0-2.0); EOSINOPHIL # 0.2 TH/MM3 (0-0.4); EOSINOPHIL % 2.4 % (0.0-4.0); HEMATOCRIT 32.4 % (35.0-46.0); LYMPH % 24.4 % (9.0-44.0); LYMPHOCYTE # 2.5 TH/MM3 (1.0-4.8); MEAN CELL VOLUME 80.9 FL (80.0-100.0); MEAN CORPUSCULAR HEMOGLOBIN 26.5 PG (27.0-34.0); MEAN CORPUSCULAR HGB CONC 32.8 % (32.0-36.0); MONO % 6.8 % (0.0-8.0); NEUT % 65.9 % (16.0-70.0); PLATELET COUNT 183 TH/MM3 (150-450); RED CELL DISTRIBUTION WIDTH 13.9 % (11.6-17.2); WHITE BLOOD COUNT 10.1 TH/MM3 (4.0-11.0)
[2017-02-19] MEDS: LEVOTHYROXINE SODIUM 50 MCG TAB PO SCH (05:54)
[2017-02-19] MEDS: ACETAMINOPHEN/HYDROcodone 325 MG/10 MG TAB PO PRN ×4 (05:55→21:31)
[2017-02-19 06:11] LABS: HEMO FLAGS DIFF FINAL
[2017-02-19 06:18] LABS: CHLORIDE 104 MEQ/L (98-107); POTASSIUM 4.9 MEQ/L (3.5-5.1); SODIUM (NA) 139 MEQ/L (136-145)
[2017-02-19 06:23] LABS: ANION GAP 5 MEQ/L (5-15); BICARBONATE 30.1 MEQ/L (21.0-32.0)
[2017-02-19 06:26] LABS: ALT (GPT) 21 U/L (10-53); AST (GOT) 11 U/L (15-37); GLOMERULAR FILTRATION RATE 45 ML/MIN (>89)
[2017-02-19] MEDS: INSULIN NovoLIN REGULAR SUPPLEMENTAL SCALE SQ SCH ×4 (06:26→21:42)
[2017-02-19 06:28] LABS: TOTAL BILIRUBIN ADULT 0.4 MG/DL (0.2-1.0)
[2017-02-19 06:29] LABS: ALKALINE PHOSPHATASE 93 U/L (45-117)
[2017-02-19 06:30] LABS: BLOOD UREA NITROGEN 18 MG/DL (7-18)
[2017-02-19 08:00] VITALS: BP 150/56; PULSE 61; RESP 19; TEMP 97.5; O2SAT 95
--- NOTE | 2017-02-19 08:48 | HHI.PR ---
Subjective History of Present Illness Patient have Pelvic ultrasound done shows Uterine mass with bleeding in the center and MRI of left hip shows severe degenerative joint disease d/w RN Donna Cyber Security Analyst input needed. Review of Systems Constitutional Constitutional: Fatigue, Weakness GI/Abdomen GI/Abdominal Exam: Abdominal Pain Vitals/Results Intake & Output 02/18/17 02/18/17 02/19/17 15:00 23:00 07:00 Intake Total 960 ml 360 ml 120 ml Balance 960 ml 360 ml 120 ml Intake Oral 960 ml 360 ml 120 ml # Voids 3 3 2 # Bowel Movements 1 0 0 Vital Signs Vital Signs Date Time Temp Pulse Resp B/P Pulse Ox O2 Delivery O2 Flow Rate FiO2 02/19/17 08:00 97.5 61 19 150/56 95 02/19/17 04:00 97.4 53 20 151/77 94 02/19/17 00:00 98.0 56 20 172/72 98 02/18/17 20:00 98.2 61 20 154/64 98 02/18/17 18:16 59 18 144/65 95 02/18/17 15:58 98.6 56 20 150/69 92 02/18/17 14:16 98.0 58 20 148/78 97 02/18/17 12:00 97.5 57 19 135/67 94 02/18/17 11:15 15 02/18/17 10:16 98.2 56 17 158/75 95 CBC/BMP: 02/19/17 0447 02/19/17 0447 Lab Results Laboratory Tests Test 02/19/17 04:47 White Blood Count 10.1 TH/MM3 Red Blood Count 4.00 MIL/MM3 Hemoglobin 10.6 GM/DL Hematocrit 32.4 % Mean Corpuscular Volume 80.9 FL Mean Corpuscular Hemoglobin 26.5 PG Mean Corpuscular Hemoglobin 32.8 % Concent Red Cell Distribution Width 13.9 % Platelet Count 183 TH/MM3 Mean Platelet Volume 11.4 FL Neutrophils (%) (Auto) 65.9 % Lymphocytes (%) (Auto) 24.4 % Monocytes (%) (Auto) 6.8 % Eosinophils (%) (Auto) 2.4 % Basophils (%) (Auto) 0.5 % Neutrophils # (Auto) 6.6 TH/MM3 Lymphocytes # (Auto) 2.5 TH/MM3 Monocytes # (Auto) 0.7 TH/MM3 Eosinophils # (Auto) 0.2 TH/MM3 Basophils # (Auto) 0.1 TH/MM3 CBC Comment DIFF FINAL Differential Comment Sodium Level 139 MEQ/L Potassium Level 4.9 MEQ/L Chloride Level 104 MEQ/L Carbon Dioxide Level 30.1 MEQ/L Anion Gap 5 MEQ/L Blood Urea Nitrogen 18 MG/DL Creatinine 1.40 MG/DL Estimat Glomerular Filtration 45 ML/MIN Rate Random Glucose 90 MG/DL Calcium Level 8.5 MG/DL Total Bilirubin 0.4 MG/DL Aspartate Amino Transf 11 U/L (AST/SGOT) Alanine Aminotransferase 21 U/L (ALT/SGPT) Alkaline Phosphatase 93 U/L Total Protein 7.5 GM/DL Albumin 2.8 GM/DL Physical Exam General General Appearance: Well Developed, Well Nourished, No Acute Distress, Comfortable Appearance Remarks Morbid obese. Eyes Eye Exam: Pupils Equal, Pupils Reactive, Sclera White, Extraocular Movement Intact Ears & Nose Ears & Nose Exam: Nasal Mucosa [place], Septum Midline Throat Throat Exam: Oral Mucosa [place] & Moist Neck Neck Exam: Neck Supple, Trachea Midline Pulmonary Resp Exam: Clear Bilaterally, Breath Sounds Equal Cardiology CV Exam: Regular, Normal Sinus Rhythm Gastrointestinal/Abdomen GI Exam: Soft, Non-Tender, Bowel Sounds Present Musculoskeletal MS Exam: Normal Tone Integumentary Skin Exam: Warm, Dry Extremeties Extremities Exam: No Edema Neurologic Neuro Exam: Alert, Awake, Oriented, Speech Clear, Moving All Extremities, No Focal Deficits Psychiatric Psych Exam: Appropriate Responses VTE Prophylaxis VTE Remarks Xarelto PUD Prophylasis PUD Prophylaxis: Protonix Assessment/Plan Assessment/Plan ASSESSMENT/PLAN 1. This is a 66-year-old female who came to the ER diagnosed with left hip pain. Checked MRI of the left hip..shows severe degenerative joint disease . The patient is on pain medicine, will monitor. 2. Left lower quadrant abdominal pain. The patient's CT abdomen and pelvis done shows enlarged uterus with suspected mass neoplastic etiology cannot be excluded, ..RN PROVIDER RELATIONS consulted. input needed. Checked pelvic ultrasound shows Uterine mass with bleeding in the center 3. Diabetes mellitus. ADA 1800 calorie diet. NovoLog low-dose sliding scale. Check blood sugars a.c. and h.s. 4. Headache. Checked CT brain, noting acute..continue with home medication. 5. History of GOUT. Continue home medication. Allopurinol 300 mg p.o. daily. 6. History of hyperlipidemia. Continue with Lipitor 20 mg p.o. daily. 7. History of depression. Continue with Celexa 10 mg p.o. daily. 8. Diabetic neuropathy. Continue with gabapentin 300 mg twice a day. 9. History of left leg DVT. Continue with Xarelto 10 mg p.o. daily. 10. History of hypothyroidism. Continue with levothyroxine 50 mcg p.o. daily. 11. History of insomnia. Continue with diazepam 5 mg p.o. at bedtime. 12. History of constipation. Continue with laxative. 13. Renal insufficiency which is improving. Will monitor. 14. Hyperkalemia which has resolved. 15. Leukocytosis. resolved. 16. Anemia. Check iron study, B12, folic acid level...noted have Iron deficiency on replacement. 17. DVT prophylaxis. The patient is on Xarelto. 18. GI prophylaxis with Protonix 40 mg p.o. daily. 19. We are going to manage the patient on a daily basis and make recommendation on a daily basis. Check CBC with diff CMP in AM. Discussed Condition with: Patient Dariusz Landin MD Feb 19, 2017 08:48
[2017-02-19] MEDS: DOCUSATE SODIUM 50 MG/SENNA 8.6 MG TAB PO SCH ×2 (09:00→21:00)
[2017-02-19] MEDS: ALLOPURINOL 300 MG TAB PO SCH (10:05)
[2017-02-19] MEDS: FUROSEMIDE 40 MG TAB PO SCH (10:08)
[2017-02-19] MEDS: PANTOPRAZOLE SOD 40 MG DELAYED RELEASE TAB PO SCH (10:08)
[2017-02-19] MEDS: ATORVASTATIN 20 MG TAB PO SCH (10:08)
[2017-02-19] MEDS: GABAPENTIN 300 MG CAP PO SCH ×2 (10:08→21:33)
[2017-02-19] MEDS: CITALOPRAM HYDROBROMIDE 20 MG TAB PO SCH (10:09)
[2017-02-19] MEDS: METOPROLOL TARTRATE 25 MG TAB PO SCH ×2 (10:09→21:33)
[2017-02-19] MEDS: SODIUM CHLORIDE 0.9% FLUSH 10 ML FLUSH IV FLUSH SCH ×2 (10:10→21:33)
[2017-02-19] MEDS: HEPARIN SODIUM - SQ 10,000 UNITS/ML VIAL SQ SCH (10:10)
[2017-02-19 12:00] VITALS: BP 138/67; PULSE 54; RESP 20; TEMP 98.2; O2SAT 96
--- NOTE | 2017-02-19 12:13 | MB ---
cc: KIRBY IRVING M.D. DATE OF CONSULTATION 02/18/17 HISTORY OF PRESENT ILLNESS The patient is a 66-year-old black female G4, P4 with also three adopted children who went through her menopause in her mid 40s. She is not on hormone replacement therapy who has had her last gynecology visit about 20 years ago. She presented to the emergency room complaining of feeling ill. She was shaking with chills. She does report she had about a 3-day history of left lower quadrant pain that radiated to her back through her buttocks and down her left leg. She was also complaining of frequency of urination. The patient denies any type of gynecology complaints. No vaginal discharge. No bleeding. No pelvic pain. Upon admission and evaluation, the patient was found to have a urinary tract infection and was started on medication. She also underwent imaging of her pelvis via CAT scan and ultrasound which revealed a uterus measuring 13.7 x 10.3 about a 6.1 x 6.5 x 6.8 cm left posterior fundal uterine mass. On MRI, it suggests that the mass is filled with possible hemorrhagic products, nonvisualization of the right and left ovary, no free fluid and no pelvic adenopathy. The imaging also revealed that she had, on her MRI of her hip, osteoarthritic findings of the hip with small osteophytes and moderate severity posterior articular cartilage thinning. Currently today in her bed, the patient reports she is feeling better. PAST MEDICAL HISTORY 1. Diabetes, 2. Sleep apnea, 3. Hypertension, 4. Renal disease that is stage III 5. Elevated cholesterol 6. Hypothyroidism. PAST SURGICAL HISTORY 1. Bilateral tubal ligation, 2. Carpal tunnel 3. Right knee replacement 4. Left knee surgery 5. Fibroid biopsy MEDICATIONS Listed in the chart. ALLERGIES Listed in the chart. SOCIAL HISTORY No tobacco. Occasional alcohol. No drug use. She is and retired. FAMILY HISTORY History f diabetes and hypertension. GYNECOLOGIC HISTORY She has no prior history of abnormal Paps. She has not had a Pap in over 20 years. She does report a history of some gonorrhea when she was young with treatment. OBSTETRICAL HISTORY times four. PHYSICAL EXAMINATION GENERAL: The patient is resting comfortably in her bed. VITAL SIGNS: Stable. She is afebrile. PELVIC: Pelvic exam at this time is difficult to perform in her hospital bed with her obese body habitus and it will be deferred until she follows up to my office. ASSESSMENT/PLAN Postmenopausal uterine mass, possibly a degenerating fibroid, possibly leiomyosarcoma, possibly just a benign fibroid. She also has a thickening of her endometrial lining. RECOMMENDATION My recommendations are for outpatient follow up in my office for a full pelvic exam with Pap smear and endometrial biopsy and then based on those results, I will set up treatment. Thank you for this consult. MD MOISE Gomez/ /3:56 PM /12:13 PM
[2017-02-19] MEDS: RIVAROXABAN 10 MG TAB PO SCH (13:06)
[2017-02-19 16:00] VITALS: BP 163/71; PULSE 55; RESP 20; TEMP 97.3; O2SAT 97
[2017-02-19] MEDS: MORPHINE SULFATE 4 MG/ML INJ IV PUSH PRN ×2 (18:39→23:09)
[2017-02-19 20:00] VITALS: BP 139/65; PULSE 66; RESP 20; TEMP 97.8; O2SAT 96
[2017-02-19] MEDS: cefTRIAXone INJ 1,000 MG in SODIUM CHLORIDE 0.9% INJ 100 ML IV SCH (21:30)
[2017-02-19] MEDS: DIAZEPAM 5 MG TAB PO PRN (21:30)
[2017-02-19] MEDS: INSULIN DETEMIR 100 UNITS/ML VIAL SQ SCH (21:41)
[2017-02-19] MEDS: SODIUM CHLORIDE 0.9% FLUSH 10 ML FLUSH IV FLUSH PRN (23:10)
[2017-02-20] VITALS: BP 164/65; PULSE 69; RESP 20; TEMP 99.4; O2SAT 96
[2017-02-20] MEDS: ACETAMINOPHEN/HYDROcodone 325 MG/10 MG TAB PO PRN ×2 (03:17→08:02)
[2017-02-20 04:00] VITALS: BP 135/64; PULSE 57; RESP 20; TEMP 97.7; O2SAT 94
[2017-02-20] MEDS: MORPHINE SULFATE 4 MG/ML INJ IV PUSH PRN ×2 (04:11→11:14)
[2017-02-20] MEDS: SODIUM CHLORIDE 0.9% FLUSH 10 ML FLUSH IV FLUSH PRN (04:12)
[2017-02-20 05:43] LABS: BASOPHIL # 0.1 TH/MM3 (0-0.2); BASOPHIL % 0.8 % (0.0-2.0); EOSINOPHIL # 0.3 TH/MM3 (0-0.4); EOSINOPHIL % 2.5 % (0.0-4.0); HEMATOCRIT 32.2 % (35.0-46.0); HEMO FLAGS DIFF FINAL; LYMPH % 20.9 % (9.0-44.0); LYMPHOCYTE # 2.1 TH/MM3 (1.0-4.8); MEAN CELL VOLUME 80.6 FL (80.0-100.0); MEAN CORPUSCULAR HEMOGLOBIN 26.1 PG (27.0-34.0); MEAN CORPUSCULAR HGB CONC 32.4 % (32.0-36.0); MONO % 7.2 % (0.0-8.0); NEUT % 68.6 % (16.0-70.0); PLATELET COUNT 180 TH/MM3 (150-450); RED CELL DISTRIBUTION WIDTH 14.1 % (11.6-17.2); WHITE BLOOD COUNT 10.2 TH/MM3 (4.0-11.0)
[2017-02-20 05:52] LABS: CHLORIDE 102 MEQ/L (98-107); SODIUM (NA) 136 MEQ/L (136-145)
[2017-02-20 06:01] LABS: ANION GAP 6 MEQ/L (5-15); BICARBONATE 28.1 MEQ/L (21.0-32.0)
[2017-02-20] MEDS: LEVOTHYROXINE SODIUM 50 MCG TAB PO SCH (06:08)
[2017-02-20] MEDS: INSULIN NovoLIN REGULAR SUPPLEMENTAL SCALE SQ SCH (06:10)
[2017-02-20 06:11] LABS: ALKALINE PHOSPHATASE 91 U/L (45-117); ALT (GPT) 18 U/L (10-53); AST (GOT) 9 U/L (15-37); BLOOD UREA NITROGEN 16 MG/DL (7-18); GLOMERULAR FILTRATION RATE 49 ML/MIN (>89); TOTAL BILIRUBIN ADULT 0.4 MG/DL (0.2-1.0)
--- NOTE | 2017-02-20 07:48 | HHI.PR ---
Subjective History of Present Illness Patient have Pelvic ultrasound done shows Uterine mass with bleeding in the center and MRI of left hip shows severe degenerative joint disease d/w RN Linda Blow Mold Operator input noted need endometrial biopsy as out patient. Review of Systems Constitutional Constitutional: Fatigue, Weakness GI/Abdomen GI/Abdominal Exam: Abdominal Pain Vitals/Results Intake & Output 02/19/17 02/19/17 02/20/17 15:00 23:00 07:00 Intake Total 900 ml Balance 900 ml Intake Oral 900 ml # Voids 5 # Bowel Movements 0 Vital Signs Vital Signs Date Time Temp Pulse Resp B/P Pulse Ox O2 Delivery O2 Flow Rate FiO2 02/20/17 04:00 97.7 57 20 135/64 94 02/20/17 00:00 99.4 69 20 164/65 96 02/19/17 20:00 97.8 66 20 139/65 96 02/19/17 16:00 97.3 55 20 163/71 97 02/19/17 12:00 98.2 54 20 138/67 96 02/19/17 11:07 20 02/19/17 08:00 97.5 61 19 150/56 95 CBC/BMP: 02/20/17 0500 02/20/17 0500 Lab Results Laboratory Tests Test 02/20/17 05:00 White Blood Count 10.2 TH/MM3 Red Blood Count 4.00 MIL/MM3 Hemoglobin 10.4 GM/DL Hematocrit 32.2 % Mean Corpuscular Volume 80.6 FL Mean Corpuscular Hemoglobin 26.1 PG Mean Corpuscular Hemoglobin 32.4 % Concent Red Cell Distribution Width 14.1 % Platelet Count 180 TH/MM3 Mean Platelet Volume 10.8 FL Neutrophils (%) (Auto) 68.6 % Lymphocytes (%) (Auto) 20.9 % Monocytes (%) (Auto) 7.2 % Eosinophils (%) (Auto) 2.5 % Basophils (%) (Auto) 0.8 % Neutrophils # (Auto) 7.0 TH/MM3 Lymphocytes # (Auto) 2.1 TH/MM3 Monocytes # (Auto) 0.7 TH/MM3 Eosinophils # (Auto) 0.3 TH/MM3 Basophils # (Auto) 0.1 TH/MM3 CBC Comment DIFF FINAL Differential Comment Sodium Level 136 MEQ/L Potassium Level 5.0 MEQ/L Chloride Level 102 MEQ/L Carbon Dioxide Level 28.1 MEQ/L Anion Gap 6 MEQ/L Blood Urea Nitrogen 16 MG/DL Creatinine 1.30 MG/DL Estimat Glomerular Filtration 49 ML/MIN Rate Random Glucose 220 MG/DL Calcium Level 9.0 MG/DL Total Bilirubin 0.4 MG/DL Aspartate Amino Transf 9 U/L (AST/SGOT) Alanine Aminotransferase 18 U/L (ALT/SGPT) Alkaline Phosphatase 91 U/L Total Protein 7.5 GM/DL Albumin 2.8 GM/DL Physical Exam General General Appearance: Well Developed, Well Nourished, No Acute Distress, Comfortable Appearance Remarks Morbid obese. Eyes Eye Exam: Pupils Equal, Pupils Reactive, Sclera White, Extraocular Movement Intact Ears & Nose Ears & Nose Exam: Nasal Mucosa [place], Septum Midline Throat Throat Exam: Oral Mucosa [place] & Moist Neck Neck Exam: Neck Supple, Trachea Midline Pulmonary Resp Exam: Clear Bilaterally, Breath Sounds Equal Cardiology CV Exam: Regular, Normal Sinus Rhythm Gastrointestinal/Abdomen GI Exam: Soft, Non-Tender, Bowel Sounds Present Musculoskeletal MS Exam: Normal Tone Integumentary Skin Exam: Warm, Dry Extremeties Extremities Exam: No Edema Neurologic Neuro Exam: Alert, Awake, Oriented, Speech Clear, Moving All Extremities, No Focal Deficits Psychiatric Psych Exam: Appropriate Responses VTE Prophylaxis VTE Remarks Xarelto PUD Prophylasis PUD Prophylaxis: Protonix Assessment/Plan Assessment/Plan ASSESSMENT/PLAN 1. This is a 66-year-old female who came to the ER diagnosed with left hip pain. Checked MRI of the left hip..shows severe degenerative joint disease . The patient is on pain medicine, will monitor. 2. Left lower quadrant abdominal pain. The patient's CT abdomen and pelvis done shows enlarged uterus with suspected mass neoplastic etiology cannot be excluded, .. Blow Mold Operator input noted need endometrial biopsy as out patient.. Checked pelvic ultrasound shows Uterine mass with bleeding in the center 3. Diabetes mellitus. ADA 1800 calorie diet. NovoLog low-dose sliding scale. Check blood sugars a.c. and h.s. 4. Headache. Checked CT brain, noting acute..continue with home medication. 5. History of GOUT. Continue home medication. Allopurinol 300 mg p.o. daily. 6. History of hyperlipidemia. Continue with Lipitor 20 mg p.o. daily. 7. History of depression. Continue with Celexa 10 mg p.o. daily. 8. Diabetic neuropathy. Continue with gabapentin 300 mg twice a day. 9. History of left leg DVT. Continue with Xarelto 10 mg p.o. daily. 10. History of hypothyroidism. Continue with levothyroxine 50 mcg p.o. daily. 11. History of insomnia. Continue with diazepam 5 mg p.o. at bedtime. 12. History of constipation. Continue with laxative. 13. Renal insufficiency which is improving. Will monitor. 14. Hyperkalemia which has resolved. 15. Leukocytosis. resolved. 16. Anemia. Check iron study, B12, folic acid level...noted have Iron deficiency on replacement. 17. DVT prophylaxis. The patient is on Xarelto. 18. GI prophylaxis with Protonix 40 mg p.o. daily. ok to DC home today. F/U with pcp/ obstetrics/gynecology nurse 1 week. Discussed Condition with: Patient Dariusz Landin MD Feb 20, 2017 07:48
[2017-02-20 08:00] VITALS: BP 143/71; PULSE 59; RESP 20; TEMP 98.6; O2SAT 96
[2017-02-20] MEDS ORDERED: FERR324T4 PO (08:16)
[2017-02-20] MEDS: ALLOPURINOL 300 MG TAB PO SCH (08:23)
[2017-02-20] MEDS: METOPROLOL TARTRATE 25 MG TAB PO SCH (08:23)
[2017-02-20] MEDS: GABAPENTIN 300 MG CAP PO SCH (08:23)
[2017-02-20] MEDS: ATORVASTATIN 20 MG TAB PO SCH (08:24)
[2017-02-20] MEDS: FUROSEMIDE 40 MG TAB PO SCH (08:24)
[2017-02-20] MEDS: DOCUSATE SODIUM 50 MG/SENNA 8.6 MG TAB PO SCH (08:24)
[2017-02-20] MEDS: RIVAROXABAN 10 MG TAB PO SCH (08:24)
[2017-02-20] MEDS: PANTOPRAZOLE SOD 40 MG DELAYED RELEASE TAB PO SCH (08:24)
[2017-02-20] MEDS: SODIUM CHLORIDE 0.9% FLUSH 10 ML FLUSH IV FLUSH SCH (08:24)
[2017-02-20] MEDS: CITALOPRAM HYDROBROMIDE 20 MG TAB PO SCH (08:24)
--- NOTE | 2017-02-24 09:14 | MD ---
cc: LONA DAHL MD ADMISSION DATE: 02/18/2017 DISCHARGE DATE: 02/20/2017 Okay to discharge the patient home. CONDITION AT THE TIME OF DISCHARGE Satisfactory. ACTIVITY As tolerated. DIET Cardiac diet, ADA 1800 calorie diet. ALLERGIES CONTRAST MEDIA, IVP DYE. DISCHARGE MEDICATIONS Include: 1. Ferrous sulfate 324 mg p.o. t.i.d. 2. Allopurinol 300 mg p.o. daily. 3. Lipitor 20 mg daily. 4. Citalopram 10 mg daily. 5. Diazepam 5 mg p.o. at bedtime p.r.n. insomnia or muscle relaxant. 6. Lasix 40 mg p.o. daily. 7. Gabapentin 300 mg p.o. b.i.d. 8. Lortab 10/325 p.o. q.4 hours p.r.n. pain. 9. Lantus 32 units subcutaneous at bedtime. 10. Levothyroxine 50 mcg p.o. daily. 11. Lisinopril 10 mg p.o. daily. 12. Metoprolol 25 mg twice a day. 13. Starlix 120 mg p.o. t.i.d. 14. Xarelto 10 mg p.o. daily. The patient advised to follow up with FULL SERVICE VENDING DRIVER and PCP in 1 week. ADMISSION DIAGNOSIS 1. Left lower quadrant abdominal pain. CT abdomen and pelvis showed enlarged uterus with suspected mass. FULL SERVICE VENDING DRIVER saw the patient. Pelvic ultrasound done showed uterine mass with bleeding in the center. POURER OFF saw the patient and wanted to see the patient as an outpatient. The patient advised to see POURER OFF. The patient verbalized understanding. 2. History of headache. CT brain done shows nothing acute. 3. History of gastroesophageal reflux disease. 4. History of hyperlipidemia. 5. History of depression. 6. Diabetic neuropathy. 7. History of left leg DVT. The patient was on Xarelto. 8. History of hypothyroidism. 9. History of insomnia. 10. History of constipation. 11. Renal insufficiency which is improving during hospital stay. 12. Hyperkalemia which resolved. 13. Leukocytosis which resolved. 14. Anemia secondary to iron deficiency. The patient started on iron replacement. HOSPITAL COURSE This is a 66-year-old female admitted with left lower quadrant abdominal pain and also complaining of left hip pain. MRI of the hip done shows severe degenerative joint disease. The patient also had a CT abdomen and pelvis done and shows uterine mass, so the patient had an ultrasound done and shows uterine mass with bleeding in the center. The patient remained stable. The patient's condition was explained to the patient. The patient was seen by Dr. Cynthia Thompson, POURER OFF and she needed endometrial biopsy and Dr. Thompson wanted to see the patient as an outpatient. The patient remained stable during the hospital stay. No acute event happened. Chest x-ray done shows left basilar density likely scarring. The patient had mild leukocytosis which has resolved. The patient has renal insufficiency, creatinine was 1.9, decreased down to 1.3. The patient had iron deficiency. The patient had a B12 of 636 and folic acid 14.7. TSH free T4 is normal. PT 12.6, INR 1.1, hemoglobin was 10.4. The patient was started on ferrous sulfate 324 mg twice a day. The patient's urinalysis did not show any urinary tract infection. The patient's blood culture done was negative for 4 days. Influenza A and B negative. Urine culture final 50-1000 CFU mixed carol. Please see further details in the medical record. Lona Dahl MD EA/AMOR /11:12 AM /8:49 AM
== END 2017-02-20 11:51 | disposition home or self-care (01) | DRG 554 ==
LOC: PHED 19:21 → PHEDA 22:13 → PH3A 02-17 00:25 → OBSVTOIN 02-18 16:38
PROVIDERS: ADMIT Family Medicine; ATTEND Family Medicine
DX: M16.12 Unilateral primary osteoarthritis, left hip (principal); E11.40 Type 2 diabetes mellitus with diabetic neuropathy, unspecified; Z68.43 Body mass index [BMI] 50.0-59.9, adult; N39.0 Urinary tract infection, site not specified; I10 Essential (primary) hypertension; E66.01 Morbid (severe) obesity due to excess calories; E78.5 Hyperlipidemia, unspecified; G47.30 Sleep apnea, unspecified; G89.29 Other chronic pain; E61.1 Iron deficiency; D64.9 Anemia, unspecified; E03.9 Hypothyroidism, unspecified; H40.9 Unspecified glaucoma; M10.9 Gout, unspecified; N28.9 Disorder of kidney and ureter, unspecified; N85.2 Hypertrophy of uterus; Z79.01 Long term (current) use of anticoagulants; Z79.899 Other long term (current) drug therapy; Z86.718 Personal history of other venous thrombosis and embolism; Z96.651 Presence of right artificial knee joint
CPT/HCPCS: 70450; 71010; 73721; 74176; 76830; 76856; 80048; 80053; 81001; 82550; 82607; 82728; 82746; 82948; 83540; 83550; 83605; 83690; 83735; 84100; 84439; 84443; 84466; 84484; 85025; 85610; 85730; 87040; 87086; 87804; 93005; 96361; 96374; 96375; 96376; G0378; J0696; J1644; J2270; J2765; J7030

== ENCOUNTER 2017-04-16 07:14 | Inpatient (IN) | payer MEDICARE, MEDICAID ==
[~2017-04-16] VITALS: Ht 162.6 cm; Wt 146.1 kg
[~2017-04-16 07:14] MED LIST changes: -CITA10TA4 PO; -CITA20TA4 PO; -DIAZ5 PO; -HUMALOG SQ; -LEVO.05 PO; -NIFE30TA61 PO; -NOVOLOGP2 SQ; -OXYC15TA PO
[2017-04-16] MEDS ORDERED: HUMALOG SQ (10:42)
[2017-04-16] MEDS ORDERED: CITA20TA4 PO (10:44)
[2017-04-21] MEDS ORDERED: ceFAZolin 2 GM PREMIX 50 ML ONE (09:23)
[2017-04-21 09:40] VITALS: BP 145/69; PULSE 55; RESP 16; TEMP 98.1; O2SAT 97
[2017-04-21] MEDS ORDERED: SODIUM CHLORID 0.9% 500 ML IV PRN (10:00)
[2017-04-21] MEDS ORDERED: LACTATED RINGER'S 1000 ML IV PRN (10:00)
[2017-04-21] MEDS ORDERED: POVIDONE IODINE 5% (ANTISEPSIS KIT) 4 APPLICATIONS EACH NARE PRN (10:00)
[2017-04-21] MEDS ORDERED: ceFAZolin 2 GM PREMIX 50 ML IV SCH ×2 (10:00→15:00)
[2017-04-21] MEDS ORDERED: CHLORHEXIDINE GLUCONATE 2 % 1 PACK (2 CLOTHS) TOPICAL PRN (10:00)
[2017-04-21] MEDS ORDERED: METOPROLOL TARTRATE 25 MG TAB PO PRN (10:00)
[2017-04-21] MEDS ORDERED: INSULIN HUMAN REGULAR 1,000 UNITS/10 ML VIAL SQ PRN (10:00)
[2017-04-21] MEDS ORDERED: PROPOFOL 200 MG/20 ML AMP IV ONE (12:00)
[2017-04-21] MEDS ORDERED: LACTATED RINGER'S 1000 ML INJ 1,000 ML IV ONE (12:00)
[2017-04-21] MEDS ORDERED: ONDANSETRON HCL 4 MG/2 ML VIAL IV PUSH ONE (12:00)
[2017-04-21] MEDS ORDERED: NEOSTIGMINE 3 MG/3 ML SYR IV ONE (12:00)
[2017-04-21] MEDS ORDERED: diphenhydrAMINE HCL 50 MG/ML VIAL IV PRN (14:15)
[2017-04-21] MEDS ORDERED: oxyCODONE/ACETAMINOPHEN 5 MG/325 MG TAB PO PRN (14:15)
[2017-04-21] MEDS ORDERED: DOCUSATE SODIUM 100 MG CAP PO PRN (14:15)
[2017-04-21] MEDS ORDERED: SODIUM CHLORIDE 0.9% FLUSH 10 ML FLUSH IV FLUSH PRN (14:15)
[2017-04-21] MEDS ORDERED: *ONDANSETRON 4 MG VIAL PERIprocedural Use ONLY ONE (14:23)
[2017-04-21] MEDS ORDERED: *PROMETHAZINE 25 MG/ML VIAL PERIprocedural use ONLY ONE (14:26)
[2017-04-21] MEDS ORDERED: fentaNYL CITRATE 250 MCG/5 ML AMP ONE ×2 (14:29→14:31)
[2017-04-21] MEDS ORDERED: MIDAZOLAM HCL 2 MG/2 ML VIAL ONE (14:29)
[2017-04-21] MEDS ORDERED: *MEPERIDINE 25 MG INJ VIAL PERIprocedural Use ONLY ONE (14:31)
[2017-04-21] MEDS: LACTATED RINGER'S 1000 ML INJ 1,000 ML IV SCH ×2 (14:52→22:08)
[2017-04-21] MEDS ORDERED: *morphine SULFATE 8 MG/ML PERIprocedure ONLY ONE (15:20)
[2017-04-21] MEDS: ACETAMINOPHEN 1000 MG/100 ML VIAL IV SCH ×2 (15:30→23:01)
[2017-04-21] MEDS ORDERED: DEXTROSE 50% IN WATER 50 ML VIAL(D50) IV PRN (16:00)
[2017-04-21] MEDS ORDERED: GLUCAGON 1 MG/ML VIAL OTHER PRN (16:00)
[2017-04-21] MEDS: INSULIN NovoLIN REGULAR SUPPLEMENTAL SCALE SQ SCH ×2 (16:00→22:17)
[2017-04-21] MEDS ORDERED: *ENALAPRILAT 1.25 MG/ML VIAL PERIprocedural Use ONLY ONE (16:01)
[2017-04-21 16:40] VITALS: BP_SYST 172; BP_SYST 196; BP_DIAS 70; BP_DIAS 76; PULSE 57; RESP 18; TEMP 96.9; O2SAT 98
[2017-04-21] MEDS: ONDANSETRON HCL 4 MG/2 ML VIAL IV PUSH PRN ×2 (18:16→23:06)
[2017-04-21] MEDS: MORPHINE SULFATE 4 MG/ML INJ IV PRN ×2 (18:16→23:00)
[2017-04-21 20:00] VITALS: BP 172/63; PULSE 60; RESP 16; TEMP 97.2; O2SAT 96
--- NOTE | 2017-04-21 20:22 | HHI.PR ---
Objective Vital Signs Date Time Temp Pulse Resp B/P Pulse Ox O2 Delivery O2 Flow Rate FiO2 04/21/17 16:40 96.9 57 18 196/76 98 172/70 04/21/17 16:30 97.6 57 26 175/74 100 Nasal Cannula 2 04/21/17 16:00 58 25 176/75 100 Nasal Cannula 2 04/21/17 15:45 59 25 169/72 100 04/21/17 15:30 61 25 186/74 100 Nasal Cannula 2 04/21/17 15:15 61 22 176/78 100 Nasal Cannula 2 04/21/17 15:00 61 24 175/71 100 Nasal Cannula 3 04/21/17 14:45 61 25 171/72 100 Nasal Cannula 3 04/21/17 14:30 59 18 173/72 100 Nasal Cannula 3 04/21/17 14:18 97.7 58 22 175/73 100 Nasal Cannula 3 04/21/17 09:40 98.1 55 16 145/69 97 I/O 04/20/17 04/20/17 04/20/17 04/21/17 04/21/17 04/21/17 07:00 15:00 23:00 07:00 15:00 23:00 Intake Total 1600 ml 270 ml Output Total 750 ml 300 ml Balance 850 ml -30 ml Intake Oral 0 ml IV Total 270 ml Other 1600 ml Output Urine Total 250 ml 300 ml Estimated Blood Loss 500 ml Assessment and Plan Assessment and Plan 66-year-old female with a past medical history of obesity, sleep apnea, hypertension, hyperlipidemia, chronic kidney disease stage III, Right total knee replacement, tubal ligation. She is seen on consultation for medical management especially with her high blood pressure. She is status post total hysterectomy with a bilateral salpingo-oophorectomy today 04/21/17 Preliminary frozen section showed endometrial cancer, Patient seen and examined in room 701 Full consultation to follow Thank you for this consultation Will follow her along with you on a daily basis while hospitalized Discussed with son Discussed with nurse Jimi Ruby MD Apr 21, 2017 20:22
--- NOTE | 2017-04-21 22:11 | MB ---
cc: FINN LARA MD DATE OF CONSULTATION 04/21/2017 DATE OF 1950 DATE OF ADMISSION 04/21/2017 REASON FOR CONSULTATION Medical management. HISTORY OF PRESENT ILLNESS The patient is currently in the postanesthesia care unit setting postoperative from exploratory laparotomy, [facility]. The patient is morbidly obese, uses C-PAP at home for sleep apnea. Family had stated to the nurse that her C-PAP machine is broken so she will be placed on one here at the hospital. She has multiple medical comorbidities that we will assist with management while the patient is in the hospital. She has had a recent diagnosis of uterine mass. Currently the patient is drowsy, arouses to verbal stimuli but goes right back off to sleep. She is not having any chest pain. No shortness of breath. The patient has had some mild postoperative nausea but no vomiting. PAST MEDICAL HISTORY Includes: 1. Diabetes. 2. History of deep venous thrombosis. 3. History of atypical chest pain. 4. Hypertension. 5. Hyperlipidemia. 6. Morbid obesity. 7. Hypokalemia. 8. Uterine mass. 9. . 10. Urinary tract infection. 11. Malaise. 12. Umbilical hernia. Most of this information is being gathered from the records. PAST SURGICAL HISTORY Recent surgical history: Today [facility]. Unknown for any other surgery at this time. There is no family present to assist with information. ALLERGIES CONTRAST MEDIA AND DYE. MEDICATIONS Reconciled. Currently in process. SOCIAL HISTORY The patient does have a daughter who is a supportive family member. Otherwise medical history has not yet been evaluated. REVIEW OF SYSTEMS Unable to obtain secondary to the patient's immediate postop lethargy. PHYSICAL EXAMINATION VITAL SIGNS: Temperature is 98.1, pulse 55, respiratory rate 16, blood pressure 145/69, O2 sat 97% currently on room air or O2 per 2 liters as needed. GENERAL: Morbidly obese, black female looks to be her stated age resting in the bed. No shortness of breath. No acute pain. SKIN: [place] mucous membranes, warm and dry. HEENT: Atraumatic, normocephalic. Pupils equal, round, reactive to light and accommodation at 1-2. Mucous membranes are dry but no exudate. No oral exudate. NECK: Supple. CARDIOVASCULAR: S1-S2. Rhythm is slow, mildly irregular. She has minimal trace of lower extremity edema. Extremities are warm. LUNGS: Sounds are essentially clear with low air volumes but no wheezing, rhonchi or rales heard. ABDOMEN: Round, taut, bowel sounds are soft and minimal. The patient has abdominal binder on. MUSCULOSKELETAL: Randomly moves all extremities with purpose. NEUROLOGIC: She is very drowsy, postoperative sedation. But she will arouse to mild verbal stimuli for short periods of time. Speech is clear. PSYCHIATRIC: Mood and affect are appropriate. LABORATORY DATA Diagnostic data obtained from the records where preop labs show white blood cell count 8.9, hemoglobin 11.7, platelet count 168. BUN 23, creatinine 1.3. Urinalysis shows a trace of leukocyte esterase. ASSESSMENT AND PLAN 1. Uterine mass. The patient is status post exploratory laparotomy with ROSA MARIA-BSO. 2. Obstructive sleep apnea. 3. History of hypertension. 4. Morbid obesity. 5. Possible urinary tract infection. Our plan is to monitor all of her medical comorbidities which will include her vital signs q.4h and as warranted. Intake and output with special attention to urine output after Phoenix is removed. Pain management. Antibiotics as warranted. The patient is postoperative pain management and postoperative care will be per the surgical team. We will monitor Accu-Cheks before meals and bedtime with sliding scale insulin. We will recheck her labs in the morning. Sequential compression devices for deep venous thrombosis prophylaxis preop. As needed medications for any blood pressure abnormalities. Please note that the daughter called while the patient was in the postanesthesia care unit area and spoke to the nurse. She states that her mother does not know anything about cancer and that request no one speak to her until her daughter is present with her. Thank you very much for this consultation. We will continue to follow. Dictated by: WADE Rojas MD EVERTON Snyder/BLANK /4:00 PM /9:44 PM
[2017-04-21] MEDS: SODIUM CHLORIDE 0.9% FLUSH 10 ML FLUSH IV FLUSH SCH (22:56)
[2017-04-21 22:57] VITALS: BP 154/66; PULSE 68; RESP 18; TEMP 97.6; O2SAT 98
[2017-04-21] MEDS: ceFAZolin 2 GM PREMIX 50 ML IV SCH (22:59)
[2017-04-22] VITALS (8 sets, daily range): BP systolic 142–179; BP diastolic 53–79; PULSE 71–78; RESP 16–18; TEMP 96.2–97.8; O2SAT 95–98
[2017-04-22] MEDS: ACETAMINOPHEN 1000 MG/100 ML VIAL IV SCH ×2 (03:00→09:00)
[2017-04-22] MEDS: ceFAZolin 2 GM PREMIX 50 ML IV SCH ×2 (04:06→12:06)
[2017-04-22] MEDS: MORPHINE SULFATE 4 MG/ML INJ IV PRN ×5 (04:07→20:55)
[2017-04-22] MEDS: ONDANSETRON HCL 4 MG/2 ML VIAL IV PUSH PRN ×2 (04:08→12:06)
[2017-04-22] MEDS: oxyCODONE/ACETAMINOPHEN 10 MG/325 MG TAB PO PRN ×5 (05:32→23:48)
[2017-04-22] MEDS: LACTATED RINGER'S 1000 ML INJ 1,000 ML IV SCH (06:08)
[2017-04-22] MEDS: INSULIN NovoLIN REGULAR SUPPLEMENTAL SCALE SQ SCH ×4 (06:53→20:48)
[2017-04-22 07:48] LABS: BASOPHIL % 0.3 % (0.0-2.0); EOSINOPHIL % 0.2 % (0.0-4.0); HEMATOCRIT 36.6 % (35.0-46.0); HEMO FLAGS DIFF FINAL; LYMPH % 14.1 % (9.0-44.0); LYMPHOCYTE # 1.8 TH/MM3 (1.0-4.8); MEAN CELL VOLUME 82.9 FL (80.0-100.0); MEAN CORPUSCULAR HGB CONC 31.4 % (32.0-36.0); NEUT % 79.4 % (16.0-70.0); PLATELET COUNT 184 TH/MM3 (150-450); RED BLOOD COUNT 4.41 MIL/MM3 (4.00-5.30); RED CELL DISTRIBUTION WIDTH 16.5 % (11.6-17.2); WHITE BLOOD COUNT 12.5 TH/MM3 (4.0-11.0)
[2017-04-22 08:16] LABS: BICARBONATE 28.4 MEQ/L (21.0-32.0); POTASSIUM 4.8 MEQ/L (3.5-5.1)
[2017-04-22] MEDS: SODIUM CHLORIDE 0.9% FLUSH 10 ML FLUSH IV FLUSH SCH ×2 (09:00→20:36)
--- NOTE | 2017-04-22 13:42 | HHI.PR ---
Subjective Remarks Pt with slight nausea, no vomitting, co pain and too painful to move, no flatus Objective Vital Signs Vital Signs Date Time Temp Pulse Resp B/P Pulse Ox O2 Delivery O2 Flow Rate FiO2 04/22/17 13:09 18 04/22/17 13:09 18 04/22/17 12:00 97.6 74 18 150/56 96 04/22/17 08:04 98 Nasal Cannula 1.00 04/22/17 08:00 97.8 74 18 179/79 96 04/22/17 07:55 18 04/22/17 04:00 96.2 71 18 145/53 98 04/22/17 00:38 16 04/21/17 22:57 97.6 68 18 154/66 98 04/21/17 20:00 97.2 60 16 172/63 96 04/21/17 19:45 Nasal Cannula 1.00 04/21/17 16:40 96.9 57 18 196/76 98 172/70 04/21/17 16:30 97.6 57 26 175/74 100 Nasal Cannula 2 04/21/17 16:00 58 25 176/75 100 Nasal Cannula 2 04/21/17 15:45 59 25 169/72 100 04/21/17 15:30 61 25 186/74 100 Nasal Cannula 2 04/21/17 15:15 61 22 176/78 100 Nasal Cannula 2 04/21/17 15:00 61 24 175/71 100 Nasal Cannula 3 04/21/17 14:45 61 25 171/72 100 Nasal Cannula 3 04/21/17 14:30 59 18 173/72 100 Nasal Cannula 3 04/21/17 14:18 97.7 58 22 175/73 100 Nasal Cannula 3 I/O 04/21/17 04/21/17 04/21/17 04/22/17 04/22/17 04/22/17 07:00 15:00 23:00 07:00 15:00 23:00 Intake Total 1600 ml 510 ml 240 ml Output Total 750 ml 1075 ml 800 ml Balance 850 ml -565 ml -560 ml Intake Oral 240 ml 240 ml IV Total 270 ml Other 1600 ml Output Urine Total 250 ml 1075 ml 800 ml Estimated Blood Loss 500 ml Result Diagram: 04/22/17 0550 04/22/17 0550 Objective Remarks Chest is clear, regular rate and rhythm. Abdomen is soft and non-distended. Incision is clean and dry. Ext no CCE. 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 Pain management-encourage IV tylenol to decrease need for narcotics to decrease nausea and allow good return of bowel function. 2. D/C pina 3. encourage ambulation 4 appreciate the medical team's involvement Cynthia Benton MD Apr 22, 2017 13:42
--- NOTE | 2017-04-22 16:08 | HHI.PR ---
Subjective Remarks Resting in bed Multiple family members Phoenix catheter in place plan for DC today and monitor for any urinary retention Encouraged to drink and take by mouth fluids Objective Objective Results - Vital Signs Date Time Temp Pulse Resp B/P Pulse Ox O2 Delivery O2 Flow Rate FiO2 04/22/17 15:40 96 Nasal Cannula 1.00 04/22/17 13:09 18 04/22/17 13:09 18 04/22/17 12:00 97.6 74 18 150/56 96 04/22/17 08:04 98 Nasal Cannula 1.00 04/22/17 08:00 97.8 74 18 179/79 96 04/22/17 07:55 18 04/22/17 04:00 96.2 71 18 145/53 98 04/22/17 00:38 16 04/21/17 22:57 97.6 68 18 154/66 98 04/21/17 20:00 97.2 60 16 172/63 96 04/21/17 19:45 Nasal Cannula 1.00 04/21/17 16:40 96.9 57 18 196/76 98 172/70 04/21/17 16:30 97.6 57 26 175/74 100 Nasal Cannula 2 I/O 04/21/17 04/21/17 04/21/17 04/22/17 04/22/17 04/22/17 06:59 14:59 22:59 06:59 14:59 22:59 Intake Total 1600 ml 510 ml 240 ml Output Total 750 ml 1075 ml 800 ml Balance 850 ml -565 ml -560 ml Intake Oral 240 ml 240 ml IV Total 270 ml Other 1600 ml Output Urine Total 250 ml 1075 ml 800 ml Estimated Blood Loss 500 ml Result Diagram: 04/22/17 0550 04/22/17 0550 ROS General: Fatigue, Weakness, Other (10 point ROS done positives noted) GI: Abdominal Pain (lower abdominal around the incision site) Skin: Other (obesity) Physical Exam Physical Exam PHYSICAL EXAMINATION GENERAL: This is a obese female who appears to be in no acute distress. She is alert and awake, answering questions appropriately HEAD: Normocephalic Facial features appear symmetric. OROPHARYNGEAL: Oropharynx clear NECK: Supple, short, obese Trachea midline without deviation. CARDIAC: Regular rhythm, LUNGS: Mild diminished sounds to auscultation bilaterally. Volumes are low, encouraged to turn cough and deep breathe ABDOMEN: Soft, tenderness at surgical site, dressing clean dry and intact, Bowel sounds soft, passing no gas yet EXTREMITIES: Trace LE edema. NEUROLOGICAL: Patient mood and affect appropriate SKIN:Warm and dry A/P Assessment and Plan 1. Uterine mass. The patient is status post exploratory laparotomy with ROSA MARIA-BSO. 2. Obstructive sleep apnea. 3. History of hypertension. 4. Morbid obesity. 5. Possible urinary tract infection. Vital signs reviewed, home medications restarted as warranted, BP 150/56, subcutaneous heparin, if ok with surgeon Labs reviewed anemia stable at 11.5, mild leukocytosis 12.5, creatinine 1.3 to, noted elevated blood sugars since back to her room currently 212. Monitor bowel regimen Increase activity, Phoenix catheter to be DC'd, on a doctor for any urinary retention, encourage by mouth fluids Uterine mass, patient is status post ROSA MARIA Postop day 1, findings of the uterine mass and cancer was discussed in detail with [employer] [employer] surgeon, all questions were answered with patient and family. Supportive care to patient and family Hypertension, medications were restarted today will continue to monitor vital signs every 4 and when necessary Diabetes mellitus type 2, Accu-Cheks before meals and at bedtime with sliding scale, restarted her regular home insulin. Blood sugars have been in the mid 200s for the last 24 hours Morbid obesity encouraged activity and dangling on side of bed today possible. Will have physical therapy come and worked with patient to maintain her mobility, Will check UA for any UTI Discussed with patient Discussed with nurse Discussed with Dr. Ruby, seen on her behalf Richa Ortez Apr 22, 2017 16:08
[2017-04-22] MEDS: LISINOPRIL 10 MG TAB PO SCH (16:26)
[2017-04-22] MEDS: CITALOPRAM HYDROBROMIDE 20 MG TAB PO SCH (16:27)
[2017-04-22] MEDS: METOPROLOL TARTRATE 50 MG TAB PO SCH ×2 (16:27→20:35)
[2017-04-22] MEDS: GABAPENTIN 300 MG CAP PO SCH ×2 (16:31→20:35)
[2017-04-22] MEDS: FUROSEMIDE 40 MG TAB PO SCH (16:31)
[2017-04-22] MEDS ORDERED: NATEGLINIDE 120 MG PO SCH (17:00)
[2017-04-22] MEDS ORDERED: NATEGLINIDE PO SCH (17:00)
[2017-04-22 18:42] LABS: BLOOD, URINE MOD (NEG); GLUCOSE,URINE NEG (NEG); KETONE, URINE NEG (NEG); MUCUS URINE FEW /lpf (OCC); NITRITE,URINE NEG (NEG); SQUAMOUS EPITHELIAL CELL URINE 1 /hpf (0-5); URINE COLOR YELLOW (YELLW/STRAW)
[2017-04-22 18:45] LABS: COMMENT (UR) CATH-CULTURE IND; CULTURE IF INDICATED CATH CULTURE IND
[2017-04-22] MEDS: INSULIN DETEMIR 100 UNITS/ML VIAL SQ SCH (20:48)
[2017-04-22] MEDS ORDERED: HEPARIN SODIUM - SQ 10,000 UNITS/ML VIAL SQ SCH (21:00)
[2017-04-22] MEDS ORDERED: RESP: ALBUTEROL 2.5 MG/IPRATROPIUM 0.5 MG NEB (PRN) NEB (21:00)
[2017-04-22] MEDS ORDERED: cloNIDine HCL 0.1 MG TAB PO PRN (21:00)
[2017-04-22] MEDS ORDERED: INSULIN GLARGINE 1,000 UNITS/10 ML VIAL SQ SCH (21:00)
[2017-04-23] VITALS (10 sets, daily range): BP systolic 109–149; BP diastolic 53–73; PULSE 54–75; RESP 16–20; TEMP 96–98.5; O2SAT 90–100
[2017-04-23] MEDS: oxyCODONE/ACETAMINOPHEN 10 MG/325 MG TAB PO PRN ×4 (05:25→20:57)
[2017-04-23] MEDS: INSULIN NovoLIN REGULAR SUPPLEMENTAL SCALE SQ SCH ×4 (06:25→21:07)
[2017-04-23] MEDS ORDERED: HEPARIN SODIUM - SQ 10,000 UNITS/ML VIAL SQ SCH (10:00)
[2017-04-23] MEDS: ATORVASTATIN 20 MG TAB PO SCH (10:27)
[2017-04-23] MEDS: LISINOPRIL 10 MG TAB PO SCH (10:27)
[2017-04-23] MEDS: GABAPENTIN 300 MG CAP PO SCH ×2 (10:27→20:55)
[2017-04-23] MEDS: METOPROLOL TARTRATE 50 MG TAB PO SCH ×2 (10:27→20:56)
[2017-04-23] MEDS: FUROSEMIDE 40 MG TAB PO SCH (10:27)
[2017-04-23] MEDS: ALLOPURINOL 300 MG TAB PO SCH (10:28)
[2017-04-23] MEDS: SODIUM CHLORIDE 0.9% FLUSH 10 ML FLUSH IV FLUSH SCH ×2 (10:37→20:57)
[2017-04-23] MEDS: SODIUM CHLOR 0.9% 1000 ML INJ 1,000 ML IV SCH ×2 (10:37→20:58)
--- NOTE | 2017-04-23 11:18 | HHI.PR ---
Subjective Subjective Remarks sleepy not voiding much pain controlled no fever states she has been out of bed Review of Systems Constitutional Constitutional Remarks 12 point ros completed, negative except as noted above Vitals/Results Intake & Output 04/22/17 04/22/17 04/23/17 15:00 23:00 07:00 Intake Total 2050 ml 950 ml 1100 ml Output Total 800 ml Balance 1250 ml 950 ml 1100 ml Intake Oral 1200 ml 150 ml IV Total 850 ml 950 ml 950 ml Output Urine Total 800 ml Bladder Scan Volume Amount 64 ml # Voids 0 # Bowel Movements 0 Vital Signs Vital Signs Date Time Temp Pulse Resp B/P Pulse Ox O2 Delivery O2 Flow Rate FiO2 04/23/17 09:43 92 21 04/23/17 07:30 97.8 60 20 127/60 90 04/23/17 04:00 96.0 54 18 127/54 100 04/23/17 02:09 98 30 04/23/17 00:00 97.7 75 18 149/73 96 04/22/17 23:54 98 BiPAP 30 04/22/17 23:54 98 30 04/22/17 20:27 96 2.00 04/22/17 20:00 97.7 74 16 142/62 95 04/22/17 16:00 97.1 78 18 155/65 95 04/22/17 15:40 96 Nasal Cannula 1.00 04/22/17 13:09 18 04/22/17 13:09 18 04/22/17 12:00 97.6 74 18 150/56 96 CBC/BMP: 04/22/17 0550 04/22/17 0550 Lab Results Laboratory Tests Test 04/22/17 16:50 Urine Color YELLOW Urine Turbidity CLEAR Urine pH 5.0 Urine Specific [place] 1.010 Urine Protein NEG mg/dL Urine Glucose (UA) NEG mg/dL Urine Ketones NEG mg/dL Urine Occult Blood MOD Urine Nitrite NEG Urine Bilirubin NEG Urine Urobilinogen LESS THAN 2.0 MG/DL Urine Leukocyte Esterase MOD Urine RBC 5 /hpf Urine WBC 7 /hpf Urine Squamous Epithelial 1 /hpf Cells Urine Mucus FEW /lpf Microscopic Urinalysis Comment CATH-CULTURE IND Microbiology Microbiology 04/22/17 Urine Culture, Received Pending Physical Exam General General Appearance: Well Developed, Well Nourished, No Acute Distress, Comfortable, Sleeping Eyes Eye Exam: Pupils Equal, Pupils Reactive Ears & Nose Ears & Nose Exam: Nasal Mucosa Oden Throat Throat Exam: Oral Mucosa Oden & Moist Neck Neck Exam: Neck Supple, Trachea Midline Pulmonary Resp Exam: Breath Sounds Equal Cardiology CV Exam: Regular Gastrointestinal/Abdomen GI Exam: Soft, Non-Tender, Bowel Sounds Present, Non-Distended GI Remarks abd. incision with stable binder in place Musculoskeletal MS Exam: Joints Intact Integumentary Skin Exam: Warm, Dry Extremeties Extremities Exam: No Edema, Pedal Pulses Palpable Neurologic Neuro Exam: Awake, Oriented, Speech Clear, Moving All Extremities, No Focal Deficits Psychiatric Psych Exam: Appropriate Responses VTE Prophylaxis VTE Remarks Xarelto Assessment/Plan Assessment/Plan 1. Uterine mass. The patient is status post exploratory laparotomy with ROSA MARIA-BSO. 2. Obstructive sleep apnea. 3. History of hypertension. 4. Morbid obesity. 5. Possible urinary tract infection. 6. Hx DVT 7. Obesity 8. DM II Plan post op care stable not voiding much continue IVF [employer]IC following continue with accuchecks ISS BP control, monitor closely UA + UTI, culture pending BIPAP at HS enc. IS Restarted on Xarelto Enc. inc mobility, OOB PT eval Labs in am Discussed with patient Discussed with nurse Discussed with Dr. Ruby This patient was seen by myself and Dr. Ruby, this note is written on his behalf. Sharmaine Velazquez Apr 23, 2017 11:18
[2017-04-23] MEDS: MORPHINE SULFATE 4 MG/ML INJ IV PRN ×2 (12:28→22:19)
[2017-04-23] MEDS: cefTRIAXone INJ 1,000 MG in SODIUM CHLORIDE 0.9% INJ 100 ML IV SCH (12:29)
--- NOTE | 2017-04-23 12:52 | HHI.PR ---
Subjective Remarks Pt feeling better today, pain better controlled, started to pass flatus, OOB to bathroom, no nausea, pt has not voided yet Objective Vital Signs Vital Signs Date Time Temp Pulse Resp B/P Pulse Ox O2 Delivery O2 Flow Rate FiO2 04/23/17 12:29 16 04/23/17 11:30 98.2 61 20 109/53 91 04/23/17 09:43 92 21 04/23/17 07:30 97.8 60 20 127/60 90 04/23/17 04:00 96.0 54 18 127/54 100 04/23/17 02:09 98 30 04/23/17 00:00 97.7 75 18 149/73 96 04/22/17 23:54 98 BiPAP 30 04/22/17 23:54 98 30 04/22/17 20:27 96 2.00 04/22/17 20:00 97.7 74 16 142/62 95 04/22/17 16:00 97.1 78 18 155/65 95 04/22/17 15:40 96 Nasal Cannula 1.00 04/22/17 13:09 18 I/O 04/22/17 04/22/17 04/22/17 04/23/17 04/23/17 04/23/17 07:00 15:00 23:00 07:00 15:00 23:00 Intake Total 240 ml 2050 ml 950 ml 1100 ml Output Total 800 ml 800 ml Balance -560 ml 1250 ml 950 ml 1100 ml Intake Oral 240 ml 1200 ml 150 ml IV Total 850 ml 950 ml 950 ml Output Urine Total 800 ml 800 ml Bladder Scan Volume Amount 64 ml # Voids 0 # Bowel Movements 0 Result Diagram: 04/22/17 0550 04/22/17 0550 Objective Remarks Chest is clear, regular rate and rhythm. Abdomen is soft , slightly distended Incision is clean and dry. Ext no CCE. 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 no voiding yet but minimal urine in bladder until now...will wait a few more hours, in no voiding will do a cath...do not suspect any ureteral or bladder injury, just behind on fluids 2. PT to consult to help with mobility, stressed with pt the need to ambulate 3. advance diet as tolerated Cynthia Benton MD Apr 23, 2017 12:52
[2017-04-23] MEDS ORDERED: FUROSEMIDE 20 MG/2 ML VIAL IV PUSH ONE (14:00)
[2017-04-23] MEDS: RIVAROXABAN 10 MG TAB PO SCH (16:49)
[2017-04-23] MEDS: BETHANECHOL CHL 10 MG TAB PO SCH ×2 (17:00→20:56)
[2017-04-23] MEDS: CITALOPRAM HYDROBROMIDE 20 MG TAB PO SCH (18:17)
[2017-04-23] MEDS: INSULIN DETEMIR 100 UNITS/ML VIAL SQ SCH (21:06)
[2017-04-24] VITALS (10 sets, daily range): BP systolic 113–141; BP diastolic 55–95; PULSE 61–78; RESP 16–28; TEMP 96.9–98.5; O2SAT 20–98
[2017-04-24] MEDS: oxyCODONE/ACETAMINOPHEN 10 MG/325 MG TAB PO PRN ×4 (03:51→18:46)
[2017-04-24] MEDS: SODIUM CHLOR 0.9% 1000 ML INJ 1,000 ML IV SCH ×2 (04:30→14:30)
[2017-04-24] MEDS: BETHANECHOL CHL 10 MG TAB PO SCH ×3 (05:21→20:56)
[2017-04-24] MEDS: MORPHINE SULFATE 4 MG/ML INJ IV PRN ×3 (05:28→11:45)
[2017-04-24] MEDS: INSULIN NovoLIN REGULAR SUPPLEMENTAL SCALE SQ SCH ×4 (06:29→21:16)
--- NOTE | 2017-04-24 08:10 | MP ---
cc: KIRBY DENG M.D. DATE OF SURGERY 04/21/2017 PREOPERATIVE DIAGNOSIS Uterine mass and pelvic abdominal pain. POSTOPERATIVE DIAGNOSES 1. Uterine mass and pelvic abdominal pain. 2. 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 OPERATING SURGEON Dr. Kirby Deng. ANESTHESIA General endotracheal BLOOD LOSS 500 mL. FINDINGS AT SURGERY Included a large uterus with fibroids, total measuring about 16 weeks size. Normal-appearing tubes and ovaries bilaterally. Normal diaphragm with no noted. No masses noted in the omentum. No masses noted along the bowel and no adenopathy palpated in the pelvis. Normal appearing cervix. COMPLICATIONS Were none. PROCEDURE IN DETAIL After appropriate consents were obtained, blood had been typed and screened the patient was taken to the operating room where general endotracheal anesthesia was applied. She was then placed in dorsal position, sterilely prepped and draped. A Phoenix catheter was placed. At this time using a sharp knife I made a midline incision suprapubic to below the umbilicus and carried that down using the Bovie to the fascia. We nicked the fascia in the midline and extended superiorly and inferiorly using the Bovie cautery. Muscle bellies easily split. We then identified the peritoneum, grasped with two hemostats and sharply with Metzenbaum scissors. We extended that superiorly and inferiorly. We then stretched the abdominal and pelvic cavity. I palpated at this time as I described the uterus was enlarged about 14-16 weeks size with multiple fibroids. No adhesions at all. Right tube and ovary normal. Left tube and ovary normal. Pelvic cul-de-sac free of any disease, adhesions or masses. No adenopathy appreciated. Omentum appeared free of disease. The diaphragm was smooth. I did not notice any masses or any type of implants along the bowel. At this time I went ahead and placed the O'Dinesh-O'Reyez retractor and packed away the bowel. We came across the uterus, each cornua with a long curved Kellys for uterine manipulation. We then came across the round ligament on the right side using the Radha clamp, clamping, cutting, placing a 0 Vicryl suture through that. We then developed the bladder flap anteriorly and developed a window in the broad ligament and came across the infundibular pelvic ligament using a curved Marga clamp, clamping, cutting, placing 0 Vicryl tie beneath that, followed by 0 Vicryl suture ligature. We then skeletonized uterine vessels and came across the uterine vessels using the curved Marga clamp, clamping and cutting and placing 0 Vicryl suture through that. We then turned our attention to the left side coming across the round ligament. The exact same way with a Radha clamp, clamping, cutting, placing 0 Vicryl suture through that. We then finished developing the bladder flap anteriorly which came down very nicely. I then created a window in the broad ligament coming across pelvic ligament with a curved Margaux clamp, clamping, cutting, placing 0 Vicryl tie beneath that followed by suture ligature with excellent hemostasis noted. We then skeletonized the uterine vessels. The left side is where most of the fibroids were noted. We came across the uterine arteries using a curved Marga clamp, clamping, cutting, placing 0 Vicryl suture through that. We then took some to the straight clamping, cutting, placing 0 Vicryl suture through that. Once I felt we were down to the level of the cervical external os we came across that using a curved Zeppelin clamps coming completely beneath the cervix, clamping, cutting, placing 0 Vicryl suture through that. The cuff was entirely closed just with those clamps. No other sutures needed. I then went ahead and handed off the specimen for frozen section. 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 I should say prior to packing away the bowel we did obtain some pelvic washings which were sent for cytology. After the rapid frozen section was received, Dr. Sulema Moss the MEDICAL DOCTOR NUCLEAR MEDICINE oncologist who knew about the case and came in during the surgery just to take a peek gave me a call and said that he felt we did the appropriate surgery based on her preop imaging which showed no adenopathy and based on my intraoperative findings he felt that it was warranted just to end the case with a ROSA MARIA BILATERAL SALPINGO-OOPHORECTOMY. So I went ahead and closed the fascia using 0 Vicryl starting at each apex meeting in midline in a running fashion. We then irrigated the subcu. I put some interrupted 0 Vicryl sutures in the subcu just to clear the space. We then closed the skin using gela. All sponge, lap, needle counts were correct x3. The patient was stable to the recovery room. MD MOISE Gomez/KK /7:44 PM /7:55 AM
[2017-04-24] MEDS: METOPROLOL TARTRATE 50 MG TAB PO SCH ×2 (09:00→20:55)
[2017-04-24] MEDS: ALLOPURINOL 300 MG TAB PO SCH (09:08)
[2017-04-24] MEDS: CITALOPRAM HYDROBROMIDE 20 MG TAB PO SCH (09:08)
[2017-04-24] MEDS: FUROSEMIDE 40 MG TAB PO SCH (09:08)
[2017-04-24] MEDS: RIVAROXABAN 10 MG TAB PO SCH (09:09)
[2017-04-24] MEDS: LISINOPRIL 10 MG TAB PO SCH (09:09)
[2017-04-24] MEDS: GABAPENTIN 300 MG CAP PO SCH ×2 (09:09→20:55)
[2017-04-24] MEDS: ATORVASTATIN 20 MG TAB PO SCH (09:09)
[2017-04-24] MEDS: SODIUM CHLORIDE 0.9% FLUSH 10 ML FLUSH IV FLUSH SCH ×2 (09:09→21:11)
[2017-04-24 09:43] LABS: MEAN CORPUSCULAR HEMOGLOBIN 26.8 PG (27.0-34.0); MEAN CORPUSCULAR HGB CONC 32.2 % (32.0-36.0); PLATELET COUNT 154 TH/MM3 (150-450); RED BLOOD COUNT 3.61 MIL/MM3 (4.00-5.30); RED CELL DISTRIBUTION WIDTH 16.1 % (11.6-17.2); REVIEW FLAG FINAL; WHITE BLOOD COUNT 10.1 TH/MM3 (4.0-11.0)
[2017-04-24 10:18] LABS: BICARBONATE 29.5 MEQ/L (21.0-32.0); POTASSIUM 4.5 MEQ/L (3.5-5.1)
[2017-04-24] MEDS: cefTRIAXone INJ 1,000 MG in SODIUM CHLORIDE 0.9% INJ 100 ML IV SCH (11:46)
--- NOTE | 2017-04-24 13:15 | HHI.PR ---
Subjective Remarks Pt tolerating po, still co pain and asking for iv morphine, + flatus, small BM, ambulating better and oob-chair as well, pt could not urinate yesterday with 900 cc urine on scan, pina replaced and will leave in until tomorrow am Objective Vital Signs Vital Signs Date Time Temp Pulse Resp B/P Pulse Ox O2 Delivery O2 Flow Rate FiO2 04/24/17 10:53 94 04/24/17 08:00 96.9 61 16 113/66 94 04/24/17 04:00 97.4 61 18 113/55 98 04/24/17 03:25 98 30 04/24/17 00:00 97.9 62 16 123/58 96 04/23/17 23:20 100 30 04/23/17 20:57 95 Room Air 04/23/17 20:00 98.5 75 16 138/62 95 04/23/17 17:46 91 21 04/23/17 16:50 16 04/23/17 15:50 97.0 66 20 124/62 92 I/O 04/23/17 04/23/17 04/23/17 04/24/17 04/24/17 04/24/17 07:00 15:00 23:00 07:00 15:00 23:00 Intake Total 1100 ml 540 ml 450 ml 1000 ml Output Total 1350 ml 500 ml Balance 1100 ml 540 ml -900 ml 500 ml Intake Oral 150 ml 540 ml 350 ml 200 ml IV Total 950 ml 100 ml 800 ml Output Urine Total 1350 ml 500 ml Bladder Scan Volume Amount 64 ml 272 ml 987 ml # Voids 0 0 # Bowel Movements 0 0 1 0 Result Diagram: 04/24/17 0832 04/24/17 0832 Objective Remarks Chest is clear, regular rate and rhythm. Abdomen is soft , nondistended, appropriately tender Incision is clean and dry. 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 pain an issue and discussed with pt 2. pina in due to bladder dysfunction post op- will remove in am and see if it will work 3. continue ambulation Cynthia Benton MD Apr 24, 2017 13:15
--- NOTE | 2017-04-24 13:37 | HHI.PR ---
Subjective Subjective Remarks Abdominal distention mild Continues to have pain and need pain management Awake and responsive Afebrile (Richa Ortez) Review of Systems Constitutional Constitutional: Fatigue, Weakness Constitutional Remarks 10 point ROS done positives noted (Richa Ortez) Pulmonary Respiratory: Shortness of Breath (Richa Ortez) Musculoskeletal MS: Weakness, Stiffness (Richa Ortez) Integumentary Skin: Wounds (Richa Ortez) Psychiatric Psychiatric: Normal Mood (Richa Ortez) Vitals/Results Intake & Output 04/23/17 04/23/17 04/24/17 15:00 23:00 07:00 Intake Total 540 ml 450 ml 1000 ml Output Total 1350 ml 500 ml Balance 540 ml -900 ml 500 ml Intake Oral 540 ml 350 ml 200 ml IV Total 100 ml 800 ml Output Urine Total 1350 ml 500 ml Bladder Scan Volume Amount 272 ml 987 ml # Voids 0 # Bowel Movements 0 1 0 Vital Signs Vital Signs Date Time Temp Pulse Resp B/P Pulse Ox O2 Delivery O2 Flow Rate FiO2 04/24/17 12:00 97.8 69 28 121/62 20 04/24/17 10:53 94 04/24/17 08:00 96.9 61 16 113/66 94 04/24/17 04:00 97.4 61 18 113/55 98 04/24/17 03:25 98 30 04/24/17 00:00 97.9 62 16 123/58 96 04/23/17 23:20 100 30 04/23/17 20:57 95 Room Air 04/23/17 20:00 98.5 75 16 138/62 95 04/23/17 17:46 91 21 04/23/17 16:50 16 04/23/17 15:50 97.0 66 20 124/62 92 (Richa Ortez) CBC/BMP: 04/24/17 0832 04/24/17 0832 Lab Results Laboratory Tests Test 04/24/17 08:32 White Blood Count 10.1 TH/MM3 Red Blood Count 3.61 MIL/MM3 Hemoglobin 9.7 GM/DL Hematocrit 30.0 % Mean Corpuscular Volume 83.0 FL Mean Corpuscular Hemoglobin 26.8 PG Mean Corpuscular Hemoglobin 32.2 % Concent Red Cell Distribution Width 16.1 % Platelet Count 154 TH/MM3 Mean Platelet Volume 10.6 FL Sodium Level 136 MEQ/L Potassium Level 4.5 MEQ/L Chloride Level 102 MEQ/L Carbon Dioxide Level 29.5 MEQ/L Anion Gap 5 MEQ/L Blood Urea Nitrogen 24 MG/DL Creatinine 1.90 MG/DL Estimat Glomerular Filtration 32 ML/MIN Rate Random Glucose 111 MG/DL Calcium Level 8.3 MG/DL (Richa Ortez M. PERMASTONE INSTALLER) Physical Exam General General Appearance: Well Developed, Well Nourished, No Acute Distress, Comfortable, Sleeping Appearance Remarks Pain management (Richa Ortez M. PERMASTONE INSTALLER) Eyes Eye Exam: Pupils Equal, Pupils Reactive (Richa Ortez M. PERMASTONE INSTALLER) Ears & Nose Ears & Nose Exam: Nasal Mucosa [place] (Richa Ortez M. PERMASTONE INSTALLER) Throat Throat Exam: Oral Mucosa [place] & Moist (Richa Ortez M. PERMASTONE INSTALLER) Neck Neck Exam: Neck Supple, Trachea Midline (PérezRicha macdonald M. PERMASTONE INSTALLER) Pulmonary Resp Exam: Breath Sounds Equal (Richa Ortez M. PERMASTONE INSTALLER) Cardiology CV Exam: Regular (Richa Ortez M. PERMASTONE INSTALLER) Gastrointestinal/Abdomen GI Exam: Soft, Non-Tender, Bowel Sounds Present, Non-Distended, Distended ( PérezRicha macdonald M. PERMASTONE INSTALLER) Musculoskeletal MS Exam: Joints Intact (Ricah Ortez M. PERMASTONE INSTALLER) Integumentary Skin Exam: Warm, Dry (Richa Ortez M. PERMASTONE INSTALLER) Extremeties Extremities Exam: No Edema, Pedal Pulses Palpable (Richa Ortez M. PERMASTONE INSTALLER) Neurologic Neuro Exam: Awake, Oriented, Speech Clear, Moving All Extremities, No Focal Deficits (Richa Ortez M. PERMASTONE INSTALLER) Psychiatric Psych Exam: Appropriate Responses (Richa Ortez M. PERMASTONE INSTALLER) Assessment/Plan Assessment/Plan 1. Uterine mass. The patient is status post exploratory laparotomy with ROSA MARIA-BSO. 2. Obstructive sleep apnea. 3. History of hypertension. 4. Morbid obesity. 5. Possible urinary tract infection. 6. Hx DVT 7. Obesity 8. DM II Vital signs reviewed Respiratory rate labile between 18 and 28 Labs reviewed, hemoglobin shows mild anemia at 9.7, no active bleed noted, urine culture shows nose UTI, acute kidney injury has worsened Medical management now on Xarelto, from her home meds Encouraged turn cough and deep breathe, and for patient to use her incentive spirometry Plan post op care and pain management per surgical staff not voiding much continue IVF PULLMAN CLERK following , now on Urecholine Acute kidney injury with chronic kidney disease, patient sees her on kidney specialist and was due for an appointment. Will consult continue with accuchecks ISS She still feels things are slow with her urinating Possible UTI, cultures show no infection, continue to monitor voiding patterns Morbid obesity with obstructive sleep apnea BIPAP at HS Enc. inc mobility, OOB PT eval and treat to strengthen and increase mobility Discussed with patient Discussed with nurse Discussed with Dr. Ruby This patient was seen by myself and Dr. Ruby, this note is written on his behalf. (Richa Ortez) Assessment/Plan seen, examined by myself, Dr Ruby, today Discussed with patient Discussed with nurse Renal ultrasound unremarkable Continue fluids Follow renal function Discussed with mid level provider The exam, history, and the medical decision-making described in the above note were completed with the assistance of the mid-level provider. I reviewed the findings presented. I attest that I had a [id number] encounter with the patient on the same day, and personally performed and documented my assessment and findings in the medical record. (Jimi Ruby MD) Richa Ortez Apr 24, 2017 13:37 Jimi Ruby MD Apr 24, 2017 19:22
[2017-04-24] MEDS ORDERED: PILL SPLITTER OTHER PRN (13:45)
--- NOTE | 2017-04-24 16:42 | RADRPT ---
EXAM DATE/TIME: 04/24/2017 15:57 [facility] COMPARISON: No previous studies available for comparison. INDICATIONS : Increased BUN/creatinine. Limited by body habitus. MEDICAL HISTORY : Hypothyroidism. Hypercholesterolemia. Arthritis. Glaucoma. Chest pain. HTN. 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 Asthma. Sleep apnea. Fibroids. Gout. Stage III kidney disease. Diabetes. Depression. Anxiety. Clot ting problems. Anticoagulant therapy. SURGICAL HISTORY : Tubal ligation. Bilateral cataracts. Fibroid biopsy. Right knee replacemen t. Left knee arthroscopy. Right carpel tunnel release. ENCOUNTER: Initial ACUITY: 1 day PAIN SCORE: 2/10 LOCATION: Bilateral flank MEASUREMENTS: RIGHT KIDNEY: 10.6 x 4.0 x 4.6 cm LEFT KIDNEY: 10.3 x 3.4 x 5.1 cm FINDINGS: RIGHT KIDNEY: Renal cortex is normal in thickness and echotexture. No hydronephrosis, stone, or mass. LEFT KIDNEY: Renal cortex is normal in thickness and echotexture. No hydronephrosis, stone, or m ass. BLADDER: Within normal limits given the degree of distension. CONCLUSION: There is no hydronephrosis. Kidneys are unremarkable. Martin Buck MD FACR on April 24, 2017 at 16:31 Board Certified Radiologist. This report was verified electronically.
--- NOTE | 2017-04-24 18:50 | MB ---
cc: KATHLEEN CARTER MD DATE OF CONSULTATION: 04/24/2017. REASON FOR CONSULTATION: Chronic kidney disease, acute kidney injury and high BUN and creatinine. HISTORY OF PRESENT ILLNESS: This is a 66-year-old female known to me from before with past medical history of diabetes mellitus, hypertension, chronic kidney disease, history of deep vein thrombosis, hyperlipidemia, morbid obesity who was admitted for uterine fibroma and for hysterectomy. I was called to see the patient because of elevated BUN and creatinine. The patient was diagnosed with a uterine mass. She has a large uterus with fibroids. She underwent a hysterectomy in April of 1973. The patient has a creatinine of 1.3 the day after surgery and this is her baseline 1.3 to 1.40. Now the creatinine has gone up to 1.9 today. The patient has a Phoenix catheter. The Phoenix catheter was removed yesterday and she was not able to pass the urine afterwards and it was reinserted. She does not have any vomiting. She has mild nausea. There is history of diarrhea. She has mild abdominal discomfort. PAST MEDICAL HISTORY: 1. Hypertension. 2. Diabetes mellitus. 3. Morbid obesity. 4. Chronic kidney disease. 5. History of deep venous thrombosis. 6. History of hyperlipidemia. PAST SURGICAL HISTORY: Hysterectomy done. REVIEW OF SYSTEMS: There is no history of fever. No sore throat. No lesions in the laryngeal region. She has mild nausea. There is no vomiting. No history of diarrhea. Has mild abdominal pain. No shortness of breath. No chest pain. She is on room air. She currently has a Phoenix catheter. SOCIAL HISTORY: There is no history of smoking or alcoholism. FAMILY HISTORY: Family history is noncontributory. ALLERGIES SHE IS ALLERGIC TO CONTRAST MEDIA. MEDICATIONS: Currently she is on: 1. Normal saline at 100/hour. 2. Gabapentin 300 milligrams twice a day. 3. Metoprolol twice a day 75 milligrams. 4. Eliquis 2.5 milligrams twice a day. 5. Cefazolin on-call was given. 6. Celexa 20 milligrams once a day. 7. Lasix 40 milligrams daily. 8. Lisinopril 10 milligrams once a day. 9. Ceftriaxone 1 gram q. 24 hours. 10. Regular insulin sliding scale. 11. Bethanechol 10 milligrams q. 8 hours. 12. Percocet as needed. PHYSICAL EXAMINATION: GENERAL: On examination, the patient is awake and alert and she is sitting in the in no acute distress. VITAL SIGNS: Her last blood pressure was 141/95, her blood pressure has been high earlier. There is no hypotension or any significant hypotensive episode. Oxygen saturation on room air is 94% to 95%. HEAD, EYES, EARS, NOSE, THROAT: The pupils are equal and reacting to light. Nonicteric sclerae. Conjunctivae are pale. NECK: The neck is supple. JVD is not elevated. LUNGS: The patient has bilateral good air entry with scattered wheezing. HEART: S1 and S2 regular rhythm. ABDOMEN: Abdomen obese, soft and distended. There is mild tenderness. EXTREMITIES: She has no pedal edema. INVESTIGATIONS: WBC count is 10.1, hemoglobin 9.7, platelet count 184,000. Sodium 136, potassium 4.5, chloride 102, bicarbonate 29.5, BUN 24, creatinine 1.9, calcium 8.3. Urinalysis showing that there is no protein, RBCs 5, WBCs 7. Urine culture showing no growth. IMAGING STUDIES: The patient had ultrasound of the kidneys done today and it shows both kidneys are normal in size. There is no hydronephrosis. ASSESSMENT: 1. Chronic kidney disease / acute kidney injury. 2. Uterine masses post hysterectomy. 3. Hypertension. 4. Diabetes mellitus. 5. Anemia. 6. Morbid obesity. The patient has had a hysterectomy done. Her baseline creatinine is 1.3-1.4. She has underlying hypertensive or diabetic renal disease. She does not have any proteinuria. She developed acute kidney injury. The differential diagnosis is most likely either renal or possibly obstruction because the Phoenix catheter was removed. I agree with continuing IV fluids. I will discontinue the Lasix for the time being and will follow the urine output and the BUN and creatinine. Thank you for the consultation and I will follow the patient while she is in the hospital. MD FAYE Wilson/FAY /6:01 PM /6:32 PM
[2017-04-24] MEDS ORDERED: IBUPROFEN 800 MG TAB PO PRN (20:00)
[2017-04-24] MEDS: APIXABAN 2.5 MG TABLET PO SCH (20:56)
[2017-04-24] MEDS: INSULIN DETEMIR 100 UNITS/ML VIAL SQ SCH (21:15)
[2017-04-25] VITALS (8 sets, daily range): BP systolic 122–139; BP diastolic 57–74; PULSE 59–72; RESP 18–20; TEMP 97.2–98.4; O2SAT 92–98
[2017-04-25] MEDS: BETHANECHOL CHL 10 MG TAB PO SCH ×3 (07:16→20:05)
[2017-04-25] MEDS: INSULIN NovoLIN REGULAR SUPPLEMENTAL SCALE SQ SCH ×4 (07:22→20:08)
[2017-04-25] MEDS: GABAPENTIN 300 MG CAP PO SCH ×2 (08:37→20:06)
[2017-04-25] MEDS: CITALOPRAM HYDROBROMIDE 20 MG TAB PO SCH (08:37)
[2017-04-25] MEDS: LISINOPRIL 10 MG TAB PO SCH (08:37)
[2017-04-25] MEDS: ATORVASTATIN 20 MG TAB PO SCH (08:37)
[2017-04-25] MEDS: METOPROLOL TARTRATE 50 MG TAB PO SCH ×2 (08:38→20:06)
[2017-04-25] MEDS: ALLOPURINOL 300 MG TAB PO SCH (08:39)
[2017-04-25] MEDS: SODIUM CHLORIDE 0.9% FLUSH 10 ML FLUSH IV FLUSH SCH ×2 (08:39→20:06)
[2017-04-25] MEDS: cefTRIAXone INJ 1,000 MG in SODIUM CHLORIDE 0.9% INJ 100 ML IV SCH (12:08)
[2017-04-25] MEDS: APIXABAN 2.5 MG TABLET PO SCH ×2 (12:49→20:06)
--- NOTE | 2017-04-25 12:52 | HHI.PR ---
Subjective Remarks Pt doing better today with pain management, pina still in, ambulating better, tolerating po, good flatus Objective Vital Signs Vital Signs Date Time Temp Pulse Resp B/P Pulse Ox O2 Delivery O2 Flow Rate FiO2 04/25/17 12:02 92 04/25/17 08:23 17 04/25/17 08:00 98.1 72 20 134/74 92 04/25/17 04:55 98 30 04/25/17 04:00 98.3 64 18 131/60 95 04/25/17 03:13 94 21 04/25/17 00:00 97.2 68 20 139/61 95 04/24/17 22:54 97 30 04/24/17 21:37 94 21 04/24/17 20:56 Room Air 21 04/24/17 20:00 98.5 78 20 140/65 94 04/24/17 17:00 97.8 68 18 141/95 95 I/O 04/24/17 04/24/17 04/24/17 04/25/17 04/25/17 04/25/17 07:00 15:00 23:00 07:00 15:00 23:00 Intake Total 1000 ml 480 ml 600 ml 480 ml Output Total 500 ml 1750 ml 1750 ml 800 ml Balance 500 ml -1270 ml -1150 ml -320 ml Intake Oral 200 ml 480 ml 600 ml 480 ml IV Total 800 ml Output Urine Total 500 ml 1750 ml 1750 ml 800 ml # Bowel Movements 0 Result Diagram: 04/24/17 0832 04/24/17 0832 Objective Remarks Chest is clear, regular rate and rhythm. Abdomen is soft , nondistended, appropriately tender Incision is clean and dry. ext without c/c/e A/P Assessment and Plan POD # 4 s/p exp lap with ROSA MARIA/BSO with intraop frozen section revealing smooth muscle ca 1. remove pina and see if urinates on own 2. 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 plan for dc today if all goes well Cynthia Benton MD Apr 25, 2017 12:52
[2017-04-25 13:29] LABS: BICARBONATE 25.5 MEQ/L (21.0-32.0)
--- NOTE | 2017-04-25 15:42 | HHI.NPPN ---
Subjective History of Present Illness 66-year-old female known to me from before with past medical history of diabetes mellitus, hypertension, chronic kidney disease, history of deep vein thrombosis, hyperlipidemia, morbid obesity who was admitted for uterine fibroma and for hysterectomy. I was called to see the patient because of elevated BUN and creatinine. The patient was diagnosed with a uterine mass. She has a large uterus with fibroids. She underwent a hysterectomy in April of 1973. The patient has a creatinine of 1.3 the day after surgery and this is her baseline 1.3 to 1.40. Additional Remarks Patient is alert, sitting, not in distress, has mild SOB. Review of Systems General Constitutional: Fatigue Respiratory Lungs: SOB, Wheeze Cardiovascular Cardiac: Edema, DEL CID Objective Data Data 04/24/17 04/25/17 18:59 06:59 Intake Total 480 ml 1080 ml Output Total 1750 ml 2550 ml Balance -1270 ml -1470 ml Intake Oral 480 ml 1080 ml Output Urine Total 1750 ml 2550 ml Vital Signs Date Time Temp Pulse Resp B/P Pulse Ox O2 Delivery O2 Flow Rate FiO2 04/25/17 12:02 92 04/25/17 08:23 17 04/25/17 08:00 98.1 72 20 134/74 92 04/25/17 04:55 98 30 04/25/17 04:00 98.3 64 18 131/60 95 04/25/17 03:13 94 21 04/25/17 00:00 97.2 68 20 139/61 95 04/24/17 22:54 97 30 04/24/17 21:37 94 21 04/24/17 20:56 Room Air 21 04/24/17 20:00 98.5 78 20 140/65 94 04/24/17 17:00 97.8 68 18 141/95 95 -: 04/24/17 0832 04/25/17 1249 Physical Exam General Appearance: Well Nourished, No Acute Distress, Comfortable Eyes Eye Exam: Pupils Equal, Pupils Reactive Ears & Nose Ears & Nose Exam: Nasal Mucosa [place] Throat Throat Exam: Oral Mucosa [place] & Moist Neck Neck Exam: Neck Supple, Trachea Midline Pulmonary Resp Exam: Breath Sounds Equal Cardiology CV Exam: Regular Gastrointestinal/Abdomen GI Exam: Soft, Non-Tender, Bowel Sounds Present, Distended Musculoskeletal MS Exam: Joints Intact Integumentary Skin Exam: Warm, Dry Extremeties Extremities Exam: Trace Edema Neurologic Neuro Exam: Awake, Oriented, Speech Clear, Moving All Extremities Psychiatric Psych Exam: Appropriate Responses Assessment/Plan Assessment Summary: NICOL/Acute Renal Failure, Hypertension, CKD Stage III Problem List: (1) Hypertension (2) Obesity (3) DM (diabetes mellitus) (4) Uterine mass (5) Stage 3 chronic kidney disease (6) Acute kidney injury Plan Patient has stage 3 chronic kidney disease. Most likely due to Hypertensive or Diabetic Renal disease. Develop NICOL, possibly pre renal. Now with Phoenix's catheter. Creatinine is improving. Avoid Nephrotoxins. Problem Qualifiers (1) Hypertension: Qualified Code: I10 - Essential hypertension Linda Meadows MD Apr 25, 2017 15:42
--- NOTE | 2017-04-25 16:09 | HHI.PR ---
Subjective Subjective Remarks Phoenix catheter removed this morning but unable to void Patient's dosing , snores but arouses easily to verbal stimuli Abdomen taut (Richa Ortez) Review of Systems Constitutional Constitutional: Fatigue, Weakness Constitutional Remarks 10 point ROS done positives noted (Richa Ortez) Pulmonary Respiratory: Shortness of Breath (none at rest) (Richa Ortez) Genitourinary Remarks Urinary retention (Richa Ortez) Musculoskeletal MS: Weakness, Stiffness (Richa Ortez) Integumentary Skin: Wounds (Richa Ortez) Psychiatric Psychiatric: Normal Mood (Richa Ortez) Vitals/Results Intake & Output 04/24/17 04/24/17 04/25/17 14:59 22:59 06:59 Intake Total 480 ml 600 ml 480 ml Output Total 1750 ml 1750 ml 800 ml Balance -1270 ml -1150 ml -320 ml Intake Oral 480 ml 600 ml 480 ml Output Urine Total 1750 ml 1750 ml 800 ml Vital Signs Vital Signs Date Time Temp Pulse Resp B/P Pulse Ox O2 Delivery O2 Flow Rate FiO2 04/25/17 12:02 92 04/25/17 08:23 17 04/25/17 08:00 98.1 72 20 134/74 92 04/25/17 04:55 98 30 04/25/17 04:00 98.3 64 18 131/60 95 04/25/17 03:13 94 21 04/25/17 00:00 97.2 68 20 139/61 95 04/24/17 22:54 97 30 04/24/17 21:37 94 21 04/24/17 20:56 Room Air 21 04/24/17 20:00 98.5 78 20 140/65 94 04/24/17 17:00 97.8 68 18 141/95 95 (Richa Ortez) CBC/BMP: 04/24/17 0832 04/25/17 1249 Lab Results Laboratory Tests Test 04/25/17 12:49 Sodium Level 130 MEQ/L Potassium Level 5.0 MEQ/L Chloride Level 100 MEQ/L Carbon Dioxide Level 25.5 MEQ/L Anion Gap 5 MEQ/L Blood Urea Nitrogen 26 MG/DL Creatinine 1.68 MG/DL Estimat Glomerular Filtration 37 ML/MIN Rate Random Glucose 285 MG/DL Calcium Level 8.6 MG/DL (WinchesterRicha M. REGISTERED NURSE HH CASE MANAGER) Physical Exam General General Appearance: Well Nourished, No Acute Distress, Comfortable Appearance Remarks Pain management ([place]sterRicha M. REGISTERED NURSE HH CASE MANAGER) Eyes Eye Exam: Pupils Equal, Pupils Reactive (WinchesterRicha M. REGISTERED NURSE HH CASE MANAGER) Ears & Nose Ears & Nose Exam: Nasal Mucosa [place] (WinchesterRicha M. REGISTERED NURSE HH CASE MANAGER) Throat Throat Exam: Oral Mucosa [place] & Moist (WinchesterRicha M. REGISTERED NURSE HH CASE MANAGER) Neck Neck Exam: Neck Supple, Trachea Midline (PérezRicha M. REGISTERED NURSE HH CASE MANAGER) Pulmonary Resp Exam: Breath Sounds Equal (Pérez,Richa M. REGISTERED NURSE HH CASE MANAGER) Cardiology CV Exam: Regular (W[place]sterRicha M. REGISTERED NURSE HH CASE MANAGER) Gastrointestinal/Abdomen GI Exam: Soft, Non-Tender, Bowel Sounds Present, Distended (PérezRicha M. REGISTERED NURSE HH CASE MANAGER) Musculoskeletal MS Exam: Joints Intact (PérezRicha M. REGISTERED NURSE HH CASE MANAGER) Integumentary Skin Exam: Warm, Dry (PérezRicha M. REGISTERED NURSE HH CASE MANAGER) Extremeties Extremities Exam: Trace Edema (PérezRicha M. REGISTERED NURSE HH CASE MANAGER) Neurologic Neuro Exam: Awake, Oriented, Speech Clear, Moving All Extremities (Pérez Richa M. REGISTERED NURSE HH CASE MANAGER) Psychiatric Psych Exam: Appropriate Responses (Shira Ortezan M. REGISTERED NURSE HH CASE MANAGER) Assessment/Plan Assessment/Plan 1. Chronic kidney disease / acute kidney injury. Appreciate nephrology input for patient's hypertensive and or diabetic renal disease renal US done, no proteinuria noted, continue IV hydration and discontinue the Lasix for this. Time monitoring the BUN and creatinine. 2. Uterine masses post hysterectomy Post care and information related to surgical procedure as well as pain management managed by the surgical team, passing gas 3. Hypertension Controlled for now medical management 4. Diabetes mellitus. 285, Accu-Cheks before meals and at bedtime with sliding scale 5. Anemia. Probable secondary to her chronic renal disease and status post ROSA MARIA, no active bleeding noted 6. Morbid obesity. Encouraged dietary management with her diabetes and activity when she is medically stable 7. Urinary retention, Phoenix catheter removed this morning but patient has been unable to void, but is feeling the urge, discussed with nurse options of running the water where patient can hear it, getting her up on bedside commode, if unable to void may reinsert Phoenix Discharge planning when patient is stable for voiding, hopefully tomorrow Discussed with patient Discussed with nurse Discussed with Dr. Ruby, seen on his behalf (Richa Ortez) Assessment/Plan seen, examined by myself, Dr Ruby, today Discussed with patient, so has urinary retention, Phoenix removed earlier today Renal function stable Discussed with mid level provider The exam, history, and the medical decision-making described in the above note were completed with the assistance of the mid-level provider. I reviewed the findings presented. I attest that I had a [id number] encounter with the patient on the same day, and personally performed and documented my assessment and findings in the medical record. (Jimi Ruby MD) Richa Ortez Apr 25, 2017 16:09 Jimi Ruby MD Apr 25, 2017 18:19
[2017-04-25] MEDS: INSULIN DETEMIR 100 UNITS/ML VIAL SQ SCH (20:09)
[2017-04-26] VITALS (12 sets, daily range): BP systolic 111–161; BP diastolic 50–70; PULSE 51–65; RESP 16–21; TEMP 96.3–99.5; O2SAT 93–100
[2017-04-26] MEDS: INSULIN NovoLIN REGULAR SUPPLEMENTAL SCALE SQ SCH ×4 (06:07→20:36)
[2017-04-26 06:11] LABS: BICARBONATE 27.5 MEQ/L (21.0-32.0); POTASSIUM 5.1 MEQ/L (3.5-5.1)
[2017-04-26] MEDS: CITALOPRAM HYDROBROMIDE 20 MG TAB PO SCH (09:24)
[2017-04-26] MEDS: LISINOPRIL 10 MG TAB PO SCH (09:24)
[2017-04-26] MEDS: METOPROLOL TARTRATE 50 MG TAB PO SCH ×2 (09:24→20:30)
[2017-04-26] MEDS: APIXABAN 2.5 MG TABLET PO SCH ×2 (09:24→20:30)
[2017-04-26] MEDS: ATORVASTATIN 20 MG TAB PO SCH (09:24)
[2017-04-26] MEDS: GABAPENTIN 300 MG CAP PO SCH ×2 (09:24→20:30)
[2017-04-26] MEDS: ALLOPURINOL 300 MG TAB PO SCH (09:25)
[2017-04-26] MEDS: SODIUM CHLORIDE 0.9% FLUSH 10 ML FLUSH IV FLUSH SCH ×2 (09:25→20:30)
--- NOTE | 2017-04-26 11:26 | HHI.NPPN ---
Subjective History of Present Illness 66-year-old female known to me from before with past medical history of diabetes mellitus, hypertension, chronic kidney disease, history of deep vein thrombosis, hyperlipidemia, morbid obesity who was admitted for uterine fibroma and for hysterectomy. I was called to see the patient because of elevated BUN and creatinine. The patient was diagnosed with a uterine mass. She has a large uterus with fibroids. She underwent a hysterectomy in April of 1973. The patient has a creatinine of 1.3 the day after surgery and this is her baseline 1.3 to 1.40. Additional Remarks Patient is alert, sitting on chair, no SOB, has mild lower abd. pain. Review of Systems General Constitutional: Fatigue Respiratory Lungs: SOB, Wheeze Cardiovascular Cardiac: Edema, DEL CID Objective Data Data 04/25/17 04/26/17 18:59 06:59 Intake Total 1000 ml 480 ml Output Total 1100 ml Balance 1000 ml -620 ml Intake Oral 950 ml 480 ml IV Total 50 ml Output Urine Total 1100 ml Bladder Scan Volume Amount 700 ml # Voids 4 # Bowel Movements 1 1 Vital Signs Date Time Temp Pulse Resp B/P Pulse Ox O2 Delivery O2 Flow Rate FiO2 04/26/17 09:08 97.1 51 21 126/56 99 04/26/17 08:16 95 Nasal Cannula 2.00 04/26/17 05:50 99 30 04/26/17 03:47 98.5 55 16 111/52 97 04/26/17 03:28 99 30 04/26/17 00:18 100 BiPAP 30 04/26/17 00:18 100 30 04/26/17 00:00 98.2 60 18 132/59 97 04/25/17 20:00 98.4 60 18 129/57 93 04/25/17 16:25 97.3 59 20 122/57 95 04/25/17 12:02 92 -: 04/24/17 0832 04/26/17 0445 Physical Exam General Appearance: Well Nourished, No Acute Distress, Comfortable Eyes Eye Exam: Pupils Equal, Pupils Reactive Ears & Nose Ears & Nose Exam: Nasal Mucosa [place] Throat Throat Exam: Oral Mucosa [place] & Moist Neck Neck Exam: Neck Supple, Trachea Midline Pulmonary Resp Exam: Breath Sounds Equal Cardiology CV Exam: Regular Gastrointestinal/Abdomen GI Exam: Soft, Non-Tender, Bowel Sounds Present, Distended Musculoskeletal MS Exam: Joints Intact Integumentary Skin Exam: Warm, Dry Extremeties Extremities Exam: Trace Edema Neurologic Neuro Exam: Awake, Oriented, Speech Clear, Moving All Extremities Psychiatric Psych Exam: Appropriate Responses Assessment/Plan Assessment Summary: NICOL/Acute Renal Failure, Hypertension, CKD Stage III Problem List: (1) Hypertension (2) Obesity (3) DM (diabetes mellitus) (4) Uterine mass (5) Stage 3 chronic kidney disease (6) Acute kidney injury Plan Patient has stage 3 chronic kidney disease. Most likely due to Hypertensive or Diabetic Renal disease. Develop NICOL, possibly pre renal. Now with Phoenix's catheter. Creatinine increased slightly. Told to increase oral intake. Problem Qualifiers (1) Hypertension: Qualified Code: I10 - Essential hypertension Linda Meadows MD Apr 26, 2017 11:26
[2017-04-26] MEDS: cefTRIAXone INJ 1,000 MG in SODIUM CHLORIDE 0.9% INJ 100 ML IV SCH (12:00)
--- NOTE | 2017-04-26 13:30 | HHI.PR ---
Subjective Remarks Pain controlled. bibi po, denies n/v. +flatus. pt has failed multiple voiding attempts. states she doesn't feel strong enough to go home wants to go SNF. Objective Vital Signs Vital Signs Date Time Temp Pulse Resp B/P Pulse Ox O2 Delivery O2 Flow Rate FiO2 04/26/17 12:00 97.9 65 18 114/50 93 04/26/17 09:08 97.1 51 21 126/56 99 04/26/17 08:16 95 Nasal Cannula 2.00 04/26/17 05:50 99 30 04/26/17 03:47 98.5 55 16 111/52 97 04/26/17 03:28 99 30 04/26/17 00:18 100 BiPAP 30 04/26/17 00:18 100 30 04/26/17 00:00 98.2 60 18 132/59 97 04/25/17 20:00 98.4 60 18 129/57 93 04/25/17 16:25 97.3 59 20 122/57 95 I/O 04/25/17 04/25/17 04/25/17 04/26/17 04/26/17 04/26/17 07:00 15:00 23:00 07:00 15:00 23:00 Intake Total 480 ml 1000 ml 240 ml 240 ml Output Total 800 ml 550 ml 550 ml Balance -320 ml 1000 ml -310 ml -310 ml Intake Oral 480 ml 950 ml 240 ml 240 ml IV Total 50 ml Output Urine Total 800 ml 550 ml 550 ml Bladder Scan Volume Amount 700 ml # Voids 4 # Bowel Movements 1 0 1 Result Diagram: 04/24/17 0832 04/26/17 0445 Objective Remarks Chest is clear, regular rate and rhythm. Abdomen is soft , nondistended, appropriately tender Incision is clean and dry. with gela ext without c/c/e A/P Assessment and Plan POD # 5 s/p exp lap with ROSA MARIA/BSO with intraop frozen section revealing smooth muscle ca 1. cont pina 2. review SNF with case mgmt 3. cont PT Dwayne Aguila MD Apr 26, 2017 13:30
--- NOTE | 2017-04-26 17:33 | HHI.PR ---
Subjective Subjective Remarks alert, pina back in, still having urinary retention. afebrile appetite improving. 80 % of meals consummed. (Richa Ortez) Review of Systems Constitutional Constitutional: Fatigue, Weakness Constitutional Remarks 10 point ROS done positives noted morbid obesity (Richa Ortez) Pulmonary Respiratory: Shortness of Breath (none at rest) Pulmonary Remarks debility (Richa Ortez) Genitourinary Remarks Urinary retention (Richa Ortez) Musculoskeletal MS: Weakness, Stiffness (Richa Ortez) Integumentary Skin: Wounds (Richa Ortez) Psychiatric Psychiatric: Normal Mood (Richa Ortez) Vitals/Results Intake & Output 04/25/17 04/25/17 04/26/17 15:00 23:00 07:00 Intake Total 1000 ml 240 ml 240 ml Output Total 550 ml 550 ml Balance 1000 ml -310 ml -310 ml Intake Oral 950 ml 240 ml 240 ml IV Total 50 ml Output Urine Total 550 ml 550 ml Bladder Scan Volume Amount 700 ml # Voids 4 # Bowel Movements 1 0 1 Vital Signs Vital Signs Date Time Temp Pulse Resp B/P Pulse Ox O2 Delivery O2 Flow Rate FiO2 04/26/17 17:26 98 Room Air 04/26/17 12:00 97.9 65 18 114/50 93 04/26/17 09:08 97.1 51 21 126/56 99 04/26/17 08:16 95 Nasal Cannula 2.00 04/26/17 05:50 99 30 04/26/17 03:47 98.5 55 16 111/52 97 04/26/17 03:28 99 30 04/26/17 00:18 100 BiPAP 30 04/26/17 00:18 100 30 04/26/17 00:00 98.2 60 18 132/59 97 04/25/17 20:00 98.4 60 18 129/57 93 (Richa Ortez) CBC/BMP: 04/24/17 0832 04/26/17 0445 Lab Results Laboratory Tests Test 04/26/17 04:45 Sodium Level 136 MEQ/L Potassium Level 5.1 MEQ/L Chloride Level 102 MEQ/L Carbon Dioxide Level 27.5 MEQ/L Anion Gap 7 MEQ/L Blood Urea Nitrogen 28 MG/DL Creatinine 1.83 MG/DL Estimat Glomerular Filtration 33 ML/MIN Rate Random Glucose 121 MG/DL Calcium Level 9.0 MG/DL (Shira Ortezan M. DIE TURNER) Physical Exam General General Appearance: Well Nourished, No Acute Distress, Comfortable Appearance Remarks Pain management (Richa Ortez M. DIE TURNER) Eyes Eye Exam: Pupils Equal, Pupils Reactive (Pérez,Richa M. DIE TURNER) Ears & Nose Ears & Nose Exam: Nasal Mucosa [place] (Pérez,Richa M. DIE TURNER) Throat Throat Exam: Oral Mucosa [place] & Moist (Pérez,Richa M. DIE TURNER) Neck Neck Exam: Neck Supple, Trachea Midline (Pérez,Richa M. DIE TURNER) Pulmonary Resp Exam: Breath Sounds Equal (Stanton,Richa M. DIE TURNER) Cardiology CV Exam: Regular (Pérez,Richa M. DIE TURNER) Gastrointestinal/Abdomen GI Exam: Soft, Non-Tender, Bowel Sounds Present, Distended (StantonShiraRicha M. DIE TURNER) Musculoskeletal MS Exam: Joints Intact (Pérez,Richa M. DIE TURNER) Integumentary Skin Exam: Warm, Dry (Pérez,Rciha M. DIE TURNER) Extremeties Extremities Exam: Trace Edema (PérezRicha M. DIE TURNER) Neurologic Neuro Exam: Awake, Oriented, Speech Clear, Moving All Extremities (Pérez, Richa M. DIE TURNER) Psychiatric Psych Exam: Appropriate Responses (Richa Ortez M. DIE TURNER) Assessment/Plan Assessment/Plan 1. Chronic kidney disease / acute kidney injury. Appreciate nephrology input for patient's hypertensive and or diabetic renal disease stable , probable at her basline 2. Uterine masses post hysterectomy POD # 5 s/p exp lap with ROSA MARIA/BSO , smooth muscle ca, Post care and information related to surgical procedure as well as pain management managed by the surgical team, Bowel regimin, large BM yesterday. 3. Hypertension normal trends , meds taken 4. Diabetes mellitus. Accu-Cheks before meals and at bedtime with sliding scale 5. Anemia. Probable secondary to her chronic renal disease and status post ROSA MARIA, no active bleeding noted 6. Morbid obesity. Encouraged dietary management with her diabetes and activity when she is medically stable, slow with her activity , request to go to SNF to assist in getting stronger. Case management consult done. 7. Urinary retention, Pina back in, multiple attempts to void, urine clear yellow. no dysuria noted. Discharge planning, hopefully tomorrow or Friday. May need to go with pina and work with removal at SNF with rehab. Discussed with patient Discussed with nurse Discussed with Dr. Ruby, seen on his behalf (Richa Ortez) Assessment/Plan seen, examined by myself, Dr Ruby, today Discussed with patient Discussed with nurse Discussed with mid level provider The exam, history, and the medical decision-making described in the above note were completed with the assistance of the mid-level provider. I reviewed the findings presented. I attest that I had a [id number] encounter with the patient on the same day, and personally performed and documented my assessment and findings in the medical record. We will follow daily Thank you for this Consult (Jimi Ruby MD) Richa Ortez Apr 26, 2017 17:33 Jimi Ruby MD Apr 26, 2017 17:51
[2017-04-26] MEDS: INSULIN DETEMIR 100 UNITS/ML VIAL SQ SCH (20:36)
[2017-04-27] VITALS (7 sets, daily range): BP systolic 110–148; BP diastolic 52–88; PULSE 58–96; RESP 16–18; TEMP 97.9–98.6; O2SAT 95–100
[2017-04-27] MEDS: INSULIN NovoLIN REGULAR SUPPLEMENTAL SCALE SQ SCH ×2 (06:43→11:00)
[2017-04-27 08:47] LABS: BICARBONATE 28.9 MEQ/L (21.0-32.0); POTASSIUM 5.3 MEQ/L (3.5-5.1)
[2017-04-27] MEDS: ALLOPURINOL 300 MG TAB PO SCH (09:00)
[2017-04-27] MEDS: METOPROLOL TARTRATE 50 MG TAB PO SCH (09:00)
[2017-04-27] MEDS: APIXABAN 2.5 MG TABLET PO SCH (09:00)
[2017-04-27] MEDS: GABAPENTIN 300 MG CAP PO SCH (09:00)
[2017-04-27] MEDS: ATORVASTATIN 20 MG TAB PO SCH (09:00)
[2017-04-27] MEDS: LISINOPRIL 10 MG TAB PO SCH (09:00)
[2017-04-27] MEDS: SODIUM CHLORIDE 0.9% FLUSH 10 ML FLUSH IV FLUSH SCH (09:00)
[2017-04-27] MEDS: CITALOPRAM HYDROBROMIDE 20 MG TAB PO SCH (09:00)
--- NOTE | 2017-04-27 12:52 | HHI.NPPN ---
Subjective History of Present Illness 66-year-old female known to me from before with past medical history of diabetes mellitus, hypertension, chronic kidney disease, history of deep vein thrombosis, hyperlipidemia, morbid obesity who was admitted for uterine fibroma and for hysterectomy. I was called to see the patient because of elevated BUN and creatinine. The patient was diagnosed with a uterine mass. She has a large uterus with fibroids. She underwent a hysterectomy in April of 1973. The patient has a creatinine of 1.3 the day after surgery and this is her baseline 1.3 to 1.40. Additional Remarks Patient is alert, no SOB, has left shoulder pain and mild lower abd. pain. Review of Systems General Constitutional: Fatigue Respiratory Lungs: SOB, Wheeze Cardiovascular Cardiac: Edema, DEL CID Objective Data Data 04/26/17 04/27/17 18:59 06:59 Intake Total 720 ml 480 ml Output Total 850 ml 3850 ml Balance -130 ml -3370 ml Intake Oral 720 ml 480 ml Output Urine Total 850 ml 3850 ml # Bowel Movements 0 Vital Signs Date Time Temp Pulse Resp B/P Pulse Ox O2 Delivery O2 Flow Rate FiO2 04/27/17 08:00 97.9 96 18 133/60 96 04/27/17 05:01 96 30 04/27/17 04:00 98.6 72 17 148/68 98 04/27/17 01:05 95 30 04/27/17 00:00 98.5 58 18 130/88 100 04/26/17 22:35 100 30 04/26/17 20:32 98 Nasal Cannula 2.00 04/26/17 20:20 98 Nasal Cannula 1.50 04/26/17 20:00 99.5 64 19 161/70 93 04/26/17 17:26 98 Room Air 04/26/17 17:00 96.3 55 21 126/61 98 -: 04/24/17 0832 04/27/17 0734 Physical Exam General Appearance: Well Nourished, No Acute Distress, Comfortable Eyes Eye Exam: Pupils Equal, Pupils Reactive Ears & Nose Ears & Nose Exam: Nasal Mucosa [place] Throat Throat Exam: Oral Mucosa [place] & Moist Neck Neck Exam: Neck Supple, Trachea Midline Pulmonary Resp Exam: Breath Sounds Equal Cardiology CV Exam: Regular Gastrointestinal/Abdomen GI Exam: Soft, Non-Tender, Bowel Sounds Present, Distended Musculoskeletal MS Exam: Joints Intact Integumentary Skin Exam: Warm, Dry Extremeties Extremities Exam: Trace Edema Neurologic Neuro Exam: Awake, Oriented, Speech Clear, Moving All Extremities Psychiatric Psych Exam: Appropriate Responses Assessment/Plan Assessment Summary: NICOL/Acute Renal Failure, Hypertension, CKD Stage III Problem List: (1) Hypertension (2) Obesity (3) DM (diabetes mellitus) (4) Uterine mass (5) Stage 3 chronic kidney disease (6) Acute kidney injury Plan Patient has stage 3 chronic kidney disease. Most likely due to Hypertensive or Diabetic Renal disease. Develop NICOL, possibly pre renal. Now with [place]'s catheter. Creatinine improve to her baseline. Now for D/C to SNF. Follow up with me as out patient. Problem Qualifiers (1) Hypertension: Qualified Code: I10 - Essential hypertension Linda Meadows MD Apr 27, 2017 12:52
--- NOTE | 2017-04-27 13:47 | HHI.DS ---
Discharge Summary Admission Date Apr 21, 2017 at 08:56 Discharge Date: Apr 27, 2017 Admitting Diagnosis uterine masses Procedures ex lap, ROSA MARIA/BSO/staging CBC/BMP: 04/24/17 0832 04/27/17 0734 Significant Findings Laboratory Tests Test 04/25/17 04/26/17 04/27/17 12:49 04:45 07:34 Sodium Level 130 MEQ/L (136-145) Blood Urea Nitrogen 26 MG/DL (7-18) 28 MG/DL (7-18) 26 MG/DL (7-18) Creatinine 1.68 MG/DL 1.83 MG/DL 1.49 MG/DL (0.50-1.00) (0.50-1.00) (0.50-1.00) Estimat Glomerular Filtration 37 ML/MIN (>89) 33 ML/MIN (>89) 42 ML/MIN (>89) Rate Random Glucose 285 MG/DL 121 MG/DL 129 MG/DL (74-106) (74-106) (74-106) Potassium Level 5.3 MEQ/L (3.5-5.1) Hospital Course pt was admitted for ROSA MARIA. pt did well post op with pain control and return of bowel function. however, she failed her voiding trials and will be discharged with a leg bag until she can be seen next week in the office, her urine output with the catheter has been adequate. also the patient c/o generalized weakness and deconditioning and living alone. she requested to go to SNF, thus she will be discharged to [facility] on post op day 6. Pt Condition on Discharge: Stable Discharge Disposition: Discharge to SNF Discharge Instructions DIET: Follow Instructions for: Diabetic Diet Activities you can perform: Weight Bearing as [place] Additional Activity Instructio: no sex, tampons, douching or tub baths for six weeks. Additional Information f/u with dr. gonzales in 2-3 days for staple and catheter removal Dwayne Aguila MD Apr 27, 2017 13:47
[2017-04-27] MEDS ORDERED: OXYC15TA PO (14:14)
[2017-04-27] MEDS ORDERED: NIFE30TA61 PO (15:06)
--- NOTE | 2017-04-27 15:11 | HHI.PR ---
Subjective Interval History Alert, oriented, pain well controlled, sitting on the side of the bed, denies complaints otherwise (Jimi Ruby MD) Review of Systems Constitutional Constitutional: Fatigue, Weakness Constitutional Remarks 10 systems reviewed negative otherwise (Jimi Ruby MD) Pulmonary Respiratory: Shortness of Breath (none at rest) (Jimi Ruby MD) Musculoskeletal MS: Weakness, Stiffness (Jimi Ruby MD) Integumentary Skin: Wounds (Jimi Ruby MD) Psychiatric Psychiatric: Normal Mood (Jimi Ruby MD) Vitals/Results Intake & Output 04/26/17 04/26/17 04/27/17 15:00 23:00 07:00 Intake Total 720 ml 240 ml 240 ml Output Total 850 ml 2000 ml 1850 ml Balance -130 ml -1760 ml -1610 ml Intake Oral 720 ml 240 ml 240 ml Output Urine Total 850 ml 2000 ml 1850 ml # Bowel Movements 0 0 Vital Signs Vital Signs Date Time Temp Pulse Resp B/P Pulse Ox O2 Delivery O2 Flow Rate FiO2 04/27/17 12:00 98.0 69 16 110/52 96 04/27/17 10:35 95 21 04/27/17 08:00 97.9 96 18 133/60 96 04/27/17 05:01 96 30 04/27/17 04:00 98.6 72 17 148/68 98 04/27/17 01:05 95 30 04/27/17 00:00 98.5 58 18 130/88 100 04/26/17 22:35 100 30 04/26/17 20:32 98 Nasal Cannula 2.00 04/26/17 20:20 98 Nasal Cannula 1.50 04/26/17 20:00 99.5 64 19 161/70 93 04/26/17 17:26 98 Room Air 04/26/17 17:00 96.3 55 21 126/61 98 (Jimi Ruby MD) CBC/BMP: 04/24/17 0832 04/27/17 0734 Lab Results Laboratory Tests Test 04/27/17 07:34 Sodium Level 137 MEQ/L Potassium Level 5.3 MEQ/L Chloride Level 102 MEQ/L Carbon Dioxide Level 28.9 MEQ/L Anion Gap 6 MEQ/L Blood Urea Nitrogen 26 MG/DL Creatinine 1.49 MG/DL Estimat Glomerular Filtration 42 ML/MIN Rate Random Glucose 129 MG/DL Calcium Level 9.4 MG/DL (Jimi Ruby MD) Physical Exam General General Appearance: No Acute Distress, Comfortable, Obese (Jimi Ruby MD) Eyes Eye Exam: Pupils Equal, Pupils Reactive (Jimi Ruby MD) Ears & Nose Ears & Nose Exam: Nasal Mucosa [place] (Jimi Ruby MD) Throat Throat Exam: Oral Mucosa [place] & Moist (Jimi Ruby MD) Neck Neck Exam: Neck Supple, Trachea Midline (Jimi Ruby MD) Pulmonary Resp Exam: Breath Sounds Equal (Jimi Ruby MD) Cardiology CV Exam: Regular (Jimi Ruby MD) Gastrointestinal/Abdomen GI Exam: Soft, Non-Tender, Bowel Sounds Present, Distended (Jimi Ruby MD) Musculoskeletal MS Exam: Normal Tone (Jimi Ruby MD) Integumentary Skin Exam: Warm, Dry (Jimi Ruby MD) Extremeties Extremities Exam: Trace Edema (Jimi Ruby MD) Neurologic Neuro Exam: Awake, Oriented, Speech Clear, Moving All Extremities (Jimi Ruby MD) Psychiatric Psych Exam: Appropriate Responses (Jimi Ruby MD) Assessment/Plan Assessment/Plan Assessment Endometrial cancer Status post hysterectomy and bilateral salpingo-oophorectomy this admission Chronic kidney disease Hyperkalemia Urinary retention Morbid obesity Management Discontinue ALBER inhibitor She is being discharged to rehabilitation today [place] catheters in Today Continue diuretics Continue blood pressure control, she might need an alternative to lisinopril Follow renal function and potassium level intermittently Further management of malignancy per gynecology Discussed with patient Discussed with nurse 35 minutes spent (Jimi Ruby MD) Jimi Ruby MD Apr 27, 2017 15:11 Richa Ortez Apr 27, 2017 15:15
== END 2017-04-27 15:53 | DRG 740 ==
LOC: HSDI 04-21 08:56 → HOCA 04-21 16:46
PROVIDERS: ADMIT Obstetrics & Gynecology; ATTEND Obstetrics & Gynecology
PROC: 0UTC0ZZ Resection of Cervix, Open Approach (ICD-10-PCS; 2017-04-21)
PROC: 0UT20ZZ Resection of Bilateral Ovaries, Open Approach (ICD-10-PCS; 2017-04-21)
PROC: 0UT70ZZ Resection of Bilateral Fallopian Tubes, Open Approach (ICD-10-PCS; 2017-04-21)
PROC: 0UT90ZZ Resection of Uterus, Open Approach (ICD-10-PCS; principal; 2017-04-21 11:44)
DX: C54.1 Malignant neoplasm of endometrium (principal); N17.9 Acute kidney failure, unspecified; Z68.43 Body mass index [BMI] 50.0-59.9, adult; E11.22 Type 2 diabetes mellitus with diabetic chronic kidney disease; N18.3 Chronic kidney disease, stage 3 (moderate); I12.9 Hypertensive chronic kidney disease with stage 1 through stage 4 chronic kidney disease, or unspecified chronic kidney disease; E78.5 Hyperlipidemia, unspecified; E66.01 Morbid (severe) obesity due to excess calories; G47.33 Obstructive sleep apnea (adult) (pediatric); E87.5 Hyperkalemia; D25.9 Leiomyoma of uterus, unspecified; D63.1 Anemia in chronic kidney disease; R33.9 Retention of urine, unspecified; R53.1 Weakness; Z86.718 Personal history of other venous thrombosis and embolism; Z91.041 Radiographic dye allergy status; Z79.4 Long term (current) use of insulin
CPT/HCPCS: 76775; 76937; 80048; 81001; 82948; 85025; 85027; 86850; 86900; 86901; 87086; 88112; 88305; 88307; 88331; 88341; 88342; 94002; 94003; 94150; 94664; C1765; J0131; J0690; J0696; J1940; J2175; J2250; J2270; J2405; J2550; J2710; J3010; J7030; J7120

== ENCOUNTER → 2017-04-16 | Outpatient (CLI) | payer MEDICARE, MEDICAID ==
[~2017-04-16] MED LIST changes: +CITA10TA4 PO; +CITA20TA4 PO; +FERR324T4 PO; +HUMALOG SQ; -MACR100C2 PO; +NIFE30TA61 PO; +OXYC15TA PO; -PERC5TAB12 PO; -STAR60TA PO; -ZOLO25TA PO
[2017-04-16 11:38] LABS: HEMATOCRIT 35.5 % (35.0-46.0); MEAN CELL VOLUME 81.6 FL (80.0-100.0); MEAN CORPUSCULAR HEMOGLOBIN 26.9 PG (27.0-34.0); MEAN CORPUSCULAR HGB CONC 32.9 % (32.0-36.0); PLATELET COUNT 168 TH/MM3 (150-450); RED BLOOD COUNT 4.36 MIL/MM3 (4.00-5.30); RED CELL DISTRIBUTION WIDTH 16.7 % (11.6-17.2); REVIEW FLAG FINAL; WHITE BLOOD COUNT 8.9 TH/MM3 (4.0-11.0)
[2017-04-16 11:48] LABS: APTT (PATIENT) 41.4 SEC (24.3-30.1); INTERNATIONAL NORMALIZED RATIO 1.3 RATIO; PROTHROMBIN TIME - PATIENT 14.9 SEC (9.8-11.6)
--- NOTE | 2017-04-16 11:53 | EKG ---
Date Performed: 04/16/2017 Time Performed: 10:24:55 PTAGE: 66 years EKG: SINUS BRADYCARDIA WITH FIRST DEGREE AV BLOCK MINIMAL VOLTAGE CRITERIA FOR LVH, CONSIDER NOR MAL VARIANT SEPTAL MYOCARDIAL INFARCTION, PROBABLY OLD ABNORMAL ECG PREVIOUS TRACING : 02/16/2017 19.50 DOCTOR: Rey Hwang Interpretating Date/Time 04/16/2017 11:52:16
[2017-04-16 11:55] LABS: HEMOGLOBIN A1b 1.6 %; HEMOGLOBIN Ao 52.1 %; HEMOGLOBIN LA1C 1.6 %; HEMOGLOBIN P3 2.9 %
[2017-04-16 12:09] LABS: ANION GAP 8 MEQ/L (5-15); AST (GOT) 16 U/L (15-37); BICARBONATE 26.5 MEQ/L (21.0-32.0); BLOOD UREA NITROGEN 23 MG/DL (7-18); CHLORIDE 104 MEQ/L (98-107); GLOMERULAR FILTRATION RATE 49 ML/MIN (>89); GLUCOSE,FASTING 170 MG/DL (74-99); POTASSIUM 4.6 MEQ/L (3.5-5.1); SODIUM (NA) 138 MEQ/L (136-145)
[2017-04-16 12:34] LABS: BACTERIA, URINE OCC /hpf; BLOOD, URINE NEG (NEG); COMMENT (UR) CULT NOT INDICATED; CULTURE IF INDICATED CULT NOT INDICATED; GLUCOSE,URINE NEG (NEG); KETONE, URINE NEG (NEG); MUCUS URINE FEW /lpf (OCC); NITRITE,URINE NEG (NEG); PH, URINE 5.5 (5.0-8.5); SQUAMOUS EPITHELIAL CELL URINE 1 /hpf (0-5); URINE COLOR YELLOW (YELLW/STRAW)
[2017-04-16 12:34] LABS: ALKALINE PHOSPHATASE 118 U/L (45-117); ALT (GPT) 29 U/L (10-53); HDL CHOLESTEROL 52.9 MG/DL (40.0-60.0); LDL CHOLESTEROL 41 MG/DL (0-99); TOTAL BILIRUBIN ADULT 0.7 MG/DL (0.2-1.0)
--- NOTE | 2017-04-16 12:45 | RADRPT ---
EXAM DATE/TIME: 04/16/2017 11:41 [facility] COMPARISON: CT ABDOMEN & PELVIS W/O CONTRAST, February 16, 2017, 20:01. INDICATIONS : Evaluate for pneumonia, pneumothorax or communicable disease. Pre op hysterectomy. MEDICAL HISTORY : Chronic obstructive pulmonary disease. SURGICAL HISTORY : None. ENCOUNTER: Initial ACUITY: 1 day PAIN SCORE: 0/10 LOCATION: Bilateral chest FINDINGS: PA and lateral views of the chest demonstrate the lungs to be symmetrically aerated without evidence of mass, infiltrate or effusion. Pleural thickening is present over the right chest wall seen on CT scan of 02/16/17. The cardiomediastinal contours are unremarkable. Mild degenerative changes are noted . CONCLUSION: No acute disease. Martin Buck MD FACR on April 16, 2017 at 12:42 Board Certified Radiologist. This report was verified electronically.
== END ==
LOC: CPRE 09:55
PROVIDERS: ATTEND Obstetrics & Gynecology
DX: Z01.810 Encounter for preprocedural cardiovascular examination (principal); Z01.812 Encounter for preprocedural laboratory examination; I10 Essential (primary) hypertension; R53.83 Other fatigue; D64.9 Anemia, unspecified; E11.9 Type 2 diabetes mellitus without complications; D52.9 Folate deficiency anemia, unspecified; E78.5 Hyperlipidemia, unspecified; N39.0 Urinary tract infection, site not specified; N30.90 Cystitis, unspecified without hematuria; E55.9 Vitamin D deficiency, unspecified; R00.1 Bradycardia, unspecified; I44.0 Atrioventricular block, first degree
CPT/HCPCS: 36415; 71020; 80053; 80061; 81001; 82306; 82607; 82746; 83036; 84443; 85027; 85610; 85730; 93005

== ENCOUNTER 2017-07-22 09:42 | Observation (INO) | payer MEDICARE, OTHER ==
[~2017-07-22] VITALS: Ht 162.6 cm; Wt 139.0 kg
[2017-07-22] VITALS (9 sets, daily range): BP systolic 131–152; BP diastolic 48–66; PULSE 50–68; RESP 16–20; TEMP 97.4–98.6; O2SAT 93–98
[~2017-07-22 09:42] MED LIST changes: +CITA20TA4 PO; -FERR324T4 PO; +HUMALOG SQ; -LISI10TA3 PO; +NIFE30TA61 PO; +OXYC15TA PO
[2017-07-22] MEDS ORDERED: MORPHINE SULFATE 4 MG/ML INJ IV PUSH ONE (10:00)
[2017-07-22] MEDS ORDERED: ASPIRIN 81 MG CHEW TAB PO ONE (10:00)
[2017-07-22] MEDS ORDERED: SODIUM CHLORIDE 0.9% FLUSH 10 ML FLUSH IVF PRN (10:00)
[2017-07-22 10:19] LABS: AUTOMATED NEUTROPHIL # 7.6 TH/MM3 (1.8-7.7); BASOPHIL % 0.4 % (0.0-2.0); EOSINOPHIL # 0.1 TH/MM3 (0-0.4); EOSINOPHIL % 1.5 % (0.0-4.0); HEMATOCRIT 37.5 % (35.0-46.0); LYMPH % 17.8 % (9.0-44.0); LYMPHOCYTE # 1.7 TH/MM3 (1.0-4.8); MEAN CELL VOLUME 79.5 FL (80.0-100.0); MEAN CORPUSCULAR HEMOGLOBIN 25.7 PG (27.0-34.0); MEAN CORPUSCULAR HGB CONC 32.3 % (32.0-36.0); MONO % 4.2 % (0.0-8.0); NEUT % 76.1 % (16.0-70.0); PLATELET COUNT 200 TH/MM3 (150-450); RED BLOOD COUNT 4.72 MIL/MM3 (4.00-5.30); RED CELL DISTRIBUTION WIDTH 15.1 % (11.6-17.2); WHITE BLOOD COUNT 9.8 TH/MM3 (4.0-11.0)
[2017-07-22 10:22] LABS: HEMO FLAGS DIFF FINAL
[2017-07-22 10:26] LABS: CHLORIDE 109 MEQ/L (98-107); POTASSIUM 4.1 MEQ/L (3.5-5.1); SODIUM (NA) 142 MEQ/L (136-145)
[2017-07-22 10:33] LABS: ANION GAP 6 MEQ/L (5-15); BICARBONATE 27.5 MEQ/L (21.0-32.0); BLOOD UREA NITROGEN 22 MG/DL (7-18)
[2017-07-22 10:35] LABS: ALT (GPT) 25 U/L (10-53); AST (GOT) 15 U/L (15-37); GLOMERULAR FILTRATION RATE 54 ML/MIN (>89)
[2017-07-22 10:37] LABS: TOTAL BILIRUBIN ADULT 0.7 MG/DL (0.2-1.0)
[2017-07-22 10:38] LABS: ALKALINE PHOSPHATASE 138 U/L (45-117)
--- NOTE | 2017-07-22 10:49 | RADRPT ---
EXAM DATE/TIME: 07/22/2017 10:17 [place] COMPARISON: CT ABDOMEN & PELVIS W/O CONTRAST, February 16, 2017, 20:01. CHEST PA & LAT, April 16, 2017, 11:41. INDICATIONS : Chest pain, short of breath. MEDICAL HISTORY : Diabetes mellitus type II. Hypertension Hypercholesterolemia. stage 3 kidney disease SURGICAL HISTORY : None. ENCOUNTER: Initial ACUITY: 1 day PAIN SCORE: 9/10 LOCATION: Bilateral chest FINDINGS: Pleural-based opacities in the lateral lung bases are grossly stable. No definite evidence of consoli dative infiltrate or layering effusion. Cardiomediastinal contours are satisfactory. There is mild in terstitial prominence which appears roughly stable accounting for differences in technique. CONCLUSION: Grossly stable chest appearance Jarrod Sen MD on July 22, 2017 at 10:43 Board Certified Radiologist. This report was verified electronically.
[2017-07-22] MEDS ORDERED: MORPHINE SULFATE 8 MG/ML INJ IV PUSH ONE (11:00)
--- NOTE | 2017-07-22 11:03 | PD ---
HPI Chief Complaint: Chest Pain Time Seen by Provider: 09:59 Travel History International Travel<30 days: No Contact w/Intl Traveler<30days: No Traveled to known affect area: No History of Present Illness HPI This is a 66-year-old female who presents to the emergency department with chest discomfort that woke her from sleep this morning described as pain under her left breast, constant, worse with deep breaths, improved with rest associated with some shortness of breath and nausea. Initially she thought it might be indigestion but it has not been going away. She has never had pain like this before. She's never had a stress test. She did recently have a hysterectomy for a uterine cancer by Dr. Moss 2 months ago and she had a PET scan July 04 which demonstrated an area of uptake in the lumen of the stomach at the GE junction. PFSH Past Medical History Hx Anticoagulant Therapy: Yes Arthritis: Yes Asthma: Yes Anxiety: Yes Depression: Yes Heart Rhythm Problems: No Cancer: No Cardiovascular Problems: Yes High Cholesterol: Yes Chemotherapy: No Chest Pain: Yes Congestive Heart Failure: No COPD: Yes Diabetes: Yes Patient Takes Glucophage: Yes Diminished Hearing: No Endocrine: Yes Gastrointestinal Disorders: No Glaucoma: Yes Gout: Yes Genitourinary: Yes Hepatitis: No Hiatal Hernia: No Hypertension: Yes Immune Disorder: No Implanted Vascular Access Dvce: No Musculoskeletal: Yes Neurologic: No Psychiatric: Yes (DEPRESSION) Reproductive: Yes (FIBROIDS) Respiratory: Yes (SHORTNESS OF BREATH ON EXERTION, COPD, SLEEP APNEA NO CPAP) Radiation Therapy: No Sleep Apnea: Yes Thyroid Disease: Yes (HYPO NO MEDS) ?: Not Menopausal: Yes Tubal Ligation: Yes Past Surgical History Abdominal Surgery: No AICD: No Cardiac Surgery: No Ear Surgery: No Endocrine Surgery: No Eye Surgery: Yes (BILATERAL CATARACTS) Genitourinary Surgery: No Gynecologic Surgery: Yes (FIBROID BIOPSY) Joint Replacement: Yes (RIGHT KNEE) Oral Surgery: No Pacemaker: No Thoracic Surgery: No Other Surgery: Yes (TUBAL LIGATION, R CARPEL TUNNEL, L KNEE) Social History Alcohol Use: Yes (RARELY) Tobacco Use: No Substance Use: No Allergies-Medications (Allergen,Severity, Reaction): Coded Allergies: Iodinated Contrast- Oral and IV Dye (Verified Allergy, Unknown, 07/22/17) Reported Meds & Prescriptions Reported Meds & Active Scripts Active Nifedipine ER 24 HR (Nifedipine) 30 Mg Tab 30 Mg PO DAILY Reported Oxycodone (Oxycodone HCl) 15 Mg Tab 15 Mg PO Q4H PRN TAKE EVERY 4-6HR PRN FOR PAIN Citalopram (Citalopram Hydrobromide) 20 Mg Tab 20 Mg PO DAILY Humalog Inj (Insulin Human Lispro) 1,000 Unit/10 Ml Vial 2-12 Units SQ ACHS Max dose at bedtime:( )units; sugars < 70,(0)units; sugars 150-199,(2)units; sugars 200-249,(4)units; sugars 250-299,(7)units; sugars 300-349,(10)units; sugars more than 349,(12)units. Starlix (Nateglinide) 120 Mg Tab 120 Mg PO TIDAC Lantus Inj (Insulin Glargine) 1,000 Unit/10 Ml Vial 32 Units SQ HS Xarelto (Rivaroxaban) 10 Mg Tab 10 Mg PO DAILY Allopurinol 300 Mg Tab 300 Mg PO DAILY Atorvastatin (Atorvastatin Calcium) 20 Mg Tab 20 Mg PO DAILY Lortab (Hydrocodone-Acetaminophen) 10-325 Mg Tab 1 Tab PO Q4H PRN Lasix (Furosemide) 40 Mg Tab 40 Mg PO DAILY Metoprolol Tartrate 50 Mg Tab 25 Mg PO BID Gabapentin 300 Mg Cap 300 Mg PO BID Review of Systems Except as stated in HPI: all other systems reviewed are Neg Physical Exam Narrative GENERAL:Well appearing, no acute distress SKIN: Focused skin assessment warm and dry. HEAD: Atraumatic. Normocephalic. EYES: Pupils equal and round. No injection or drainage. ENT: Moist mucous membranes NECK: Trachea midline. CARDIOVASCULAR: Regular rate and rhythm. No murmur appreciated. RESPIRATORY: Clear to auscultation. Breath sounds equal bilaterally. GASTROINTESTINAL: Abdomen soft, mildly tender to palpation in the epigastrium with no rebound/guarding. MUSCULOSKELETAL: No obvious deformities. NEUROLOGICAL: Awake and alert. No obvious cranial nerve deficits. Moving all extremities. PSYCHIATRIC: Appropriate mood and affect; insight and judgment normal. Data Data Last Documented VS Vital Signs Date Time Temp Pulse Resp B/P (MAP) Pulse Ox O2 Delivery O2 Flow Rate FiO2 07/22/17 11:15 54 16 133/48 (76) 97 07/22/17 10:16 98.6 Orders Orders Electrocardiogram (07/22/17 09:59) Complete Blood Count With Diff (07/22/17 09:59) Comprehensive Metabolic Panel (07/22/17 09:59) D-Dimer (07/22/17 09:59) Prothrombin Time / Inr (Pt) (07/22/17 09:59) Act Partial Throm Time (Ptt) (07/22/17 09:59) Troponin I (07/22/17 09:59) Chest, Single Ap (07/22/17 09:59) Ecg Monitoring (07/22/17 09:59) Bilateral Bp Monitoring (07/22/17 09:59) Iv Access Insert/Monitor (07/22/17 09:59) Oximetry (07/22/17 09:59) Oxygen Administration (07/22/17 09:59) Aspirin Chew (Aspirin Chew) (07/22/17 10:00) Sodium Chloride 0.9% Flush (Ns Flush) (07/22/17 10:00) Morphine Inj (Morphine Inj) (07/22/17 10:00) Lipase (07/22/17 09:59) Ed Poc Ultrasound (07/22/17 ) Morphine Inj (Morphine Inj) (07/22/17 11:00) Admit Order (Ed Use Only) (07/22/17 12:18) Labs Laboratory Tests Test 07/22/17 10:10 White Blood Count 9.8 TH/MM3 Red Blood Count 4.72 MIL/MM3 Hemoglobin 12.1 GM/DL Hematocrit 37.5 % Mean Corpuscular Volume 79.5 FL Mean Corpuscular Hemoglobin 25.7 PG Mean Corpuscular Hemoglobin Concent 32.3 % Red Cell Distribution Width 15.1 % Platelet Count 200 TH/MM3 Mean Platelet Volume 11.1 FL Neutrophils (%) (Auto) 76.1 % Lymphocytes (%) (Auto) 17.8 % Monocytes (%) (Auto) 4.2 % Eosinophils (%) (Auto) 1.5 % Basophils (%) (Auto) 0.4 % Neutrophils # (Auto) 7.6 TH/MM3 Lymphocytes # (Auto) 1.7 TH/MM3 Monocytes # (Auto) 0.4 TH/MM3 Eosinophils # (Auto) 0.1 TH/MM3 Basophils # (Auto) 0.0 TH/MM3 CBC Comment DIFF FINAL Differential Comment Prothrombin Time 11.6 SEC Prothromb Time International Ratio 1.0 RATIO Activated Partial Thromboplast Time 32.4 SEC D-Dimer Quantitative (PE/DVT) 0.46 MG/L FEU Blood Urea Nitrogen 22 MG/DL Creatinine 1.20 MG/DL Random Glucose 143 MG/DL Total Protein 7.4 GM/DL Albumin 3.0 GM/DL Calcium Level 8.5 MG/DL Alkaline Phosphatase 138 U/L Aspartate Amino Transf (AST/SGOT) 15 U/L Alanine Aminotransferase (ALT/SGPT) 25 U/L Total Bilirubin 0.7 MG/DL Sodium Level 142 MEQ/L Potassium Level 4.1 MEQ/L Chloride Level 109 MEQ/L Carbon Dioxide Level 27.5 MEQ/L Anion Gap 6 MEQ/L Estimat Glomerular Filtration Rate 54 ML/MIN Troponin I LESS THAN 0.02 NG/ML Lipase 79 U/L MDM Medical Decision Making Medical Screen Exam Complete: Yes Emergency Medical Condition: Yes Interpretation(s) EKG: First-degree heart block, no ST changes No leukocytosis Electrolytes are reassuring Troponin is normal Lipase is normal Creatinine is 1.2 D-dimer is 0.46 Chest x-rays reassuring Differential Diagnosis Acute coronary syndrome, pulmonary embolism, pleural effusion, pneumonia Narrative Course This is a 66-year-old female who presents to the emergency department with left- sided chest pain that started this morning. She has a recent history of a hysterectomy for uterine cancer. She is placed on a monitor and an IV was established. Labs were obtained which were reassuring including a normal d- dimer. Patient is moderate risk by Well's criteria so I think this is adequate to exclude pulmonary embolism. Chest x-rays negative for pleural effusion. She did have a PET scan which demonstrated an area of uptake in the stomach near the GE junction which could be the etiology of her pain however I don't think this needs to be evaluated in the hospital. She does have multiple risk factors for heart disease. Patient will be observed for serial cardiac enzymes and likely risk stratification. Physician Communication Physician Communication Discussed with Dr. Levine Diagnosis Primary Impression: Chest pain, atypical Admitting Information Admitting Physician Requests: Observation Lizette Araujo MD Jul 22, 2017 11:03
[2017-07-22 11:45] LABS: APTT (PATIENT) 32.4 SEC (24.3-30.1); PROTHROMBIN TIME - PATIENT 11.6 SEC (9.8-11.6)
[2017-07-22] MEDS ORDERED: ONDANSETRON HCL 4 MG/2 ML VIAL IV PUSH PRN (12:30)
[2017-07-22] MEDS ORDERED: SODIUM CHLORIDE 0.9% FLUSH 10 ML FLUSH IV FLUSH PRN (12:30)
[2017-07-22] MEDS ORDERED: DEXTROSE 50% IN WATER 50 ML VIAL(D50) IV PUSH PRN (12:30)
[2017-07-22] MEDS ORDERED: GLUCAGON 1 MG/ML VIAL OTHER PRN (12:30)
[2017-07-22] MEDS ORDERED: NITROGLYCERIN 0.4 MG SL 25 TABS/BTL SL PRN (12:30)
[2017-07-22] MEDS ORDERED: ENOXAPARIN SODIUM 40 MG/0.4 ML SYRINGE SQ SCH (13:00)
--- NOTE | 2017-07-22 13:29 | HHI.HP ---
[facility] Service [facility] Primary Care Physician Martin Painter DO Admission Diagnosis chest pain Diagnoses: Travel History International Travel<30 Days: No Contact w/Intl Traveler <30 Da: No Traveled to Known Affected Are: No History of Present Illness This is a pleasant 66-year-old Afro-[place] female with past medical history of hypertension, type 2 diabetes, uterine cancer status post hysterectomy several months ago with Dr. Cool who presented to the ER this morning after awakening with retrosternal chest pain. She states the pain woke her from sleep. It was sharp in nature. Associated with some shortness of breath but no nausea. She drinks some ice water which somewhat alleviated the symptoms. Symptoms much improved after receiving nitroglycerin in the ED. There was no radiation. No diaphoresis. Symptoms severe. In the emergency department troponin and EKG were negative for ischemia. ER physician has requested she be placed in the chest pain center. Patient states that she had a stress test many years ago. Review of Systems Constitutional: DENIES: Fatigue, Chills Eyes: DENIES: Blurred vision, Diplopia Ears, nose, mouth, throat: DENIES: Throat pain, Running Nose Respiratory: COMPLAINS OF: Shortness of breath, DENIES: Cough Cardiovascular: COMPLAINS OF: Chest pain, DENIES: Palpitations, Syncope, Lower Extremity Edema Gastrointestinal: DENIES: Abdominal pain, Vomiting Genitourinary: DENIES: Urgency, Dysuria Musculoskeletal: DENIES: Joint Swelling, Back pain Integumentary: DENIES: Pruritus, Rash Hematologic/lymphatic: DENIES: Lymphadenopathy Neurologic: DENIES: Abnormal gait, Headache Psychiatric: DENIES: Anxiety, Confusion Past Family Social History Past Medical History Hypertension Chronic kidney disease stage III Type 2 diabetes Uterine cancer status post hysterectomy several months ago and apparently she has an abnormal PET scan with uptake in the stomach History of DVT on Xarelto - dose recently decreased by her primary care physician Hyperlipidemia Depression Past Surgical History Hysterectomy carpal tunnel release left knee arthroplasty right knee arthroscopically Reported Medications Allergies Coded Allergies Type Severity Reaction Last Updated Verified Iodinated Contrast- Oral and IV Dye Allergy Unknown 07/22/17 Yes Active Scripts Medications Dose Route/Sig Max Daily Dose Days Date Category Dose Instructions Nifedipine ER 24 HR (Nifedipine) 30 Mg Tab 30 Mg PO DAILY 04/27/17 Rx Oxycodone (Oxycodone HCl) 15 Mg Tab 15 Mg PO Q4H PRN 04/27/17 Reported TAKE EVERY 4-6HR PRN FOR PAIN Citalopram (Citalopram Hydrobromide) 20 Mg Tab 20 Mg PO DAILY 04/16/17 Reported Humalog Inj (Insulin Human Lispro) 1,000 Unit/10 Ml Vial 2-12 Units SQ ACHS 04/16/17 Reported Max dose at bedtime:( )units; sugars < 70,(0)units; sugars 150-199,(2)units; sugars 200-249,(4)units; sugars 250-299,(7)units; sugars 300-349,(10)units; sugars more than 349,(12)units. Starlix (Nateglinide) 120 Mg Tab 120 Mg PO TIDAC 07/27/16 Reported Lantus Inj (Insulin Glargine) 1,000 Unit/10 Ml Vial 32 Units SQ HS 07/27/16 Reported Xarelto (Rivaroxaban) 10 Mg Tab 10 Mg PO DAILY 07/27/16 Reported Allopurinol 300 Mg Tab 300 Mg PO DAILY 07/27/16 Reported Atorvastatin (Atorvastatin Calcium) 20 Mg Tab 20 Mg PO DAILY 07/27/16 Reported Lortab (Hydrocodone-Acetaminophen) 10-325 Mg Tab 1 Tab PO Q4H PRN 07/27/16 Reported Lasix (Furosemide) 40 Mg Tab 40 Mg PO DAILY 07/27/16 Reported Metoprolol Tartrate 50 Mg Tab 25 Mg PO BID 07/27/16 Reported Gabapentin 300 Mg Cap 300 Mg PO BID 07/27/16 Reported Allergies: Coded Allergies: Iodinated Contrast- Oral and IV Dye (Verified Allergy, Unknown, 07/22/17) Family History She is not aware of any family history of coronary artery disease Social History No tobacco use. Physical Exam Vital Signs Vital Signs Date Time Temp Pulse Resp B/P (MAP) Pulse Ox O2 Delivery O2 Flow Rate FiO2 07/22/17 13:01 53 16 131/50 (77) 97 07/22/17 11:15 54 16 133/48 (76) 97 07/22/17 10:16 98.6 68 16 135/50 (78) 98 07/22/17 10:00 50 Physical Exam GENERAL: Well-nourished, well-developed pleasant obese female patient. SKIN: Warm and dry. HEAD: Normocephalic. EYES: No scleral icterus. No injection or drainage. NECK: Supple, trachea midline. No JVD or lymphadenopathy. CARDIOVASCULAR: Regular rate and rhythm without murmurs, gallops, or rubs. Chest wall mildly tender to palpation. RESPIRATORY: Breath sounds equal bilaterally. No accessory muscle use. GASTROINTESTINAL: Abdomen soft, non-tender, nondistended. EXTREMITIES: No cyanosis, or edema. NEUROLOGICAL: Awake, alert, and oriented x 3. Non-focal. Laboratory Laboratory Tests Test 07/22/17 10:10 07/22/17 12:55 White Blood Count 9.8 Red Blood Count 4.72 Hemoglobin 12.1 Hematocrit 37.5 Mean Corpuscular Volume 79.5 Mean Corpuscular Hemoglobin 25.7 Mean Corpuscular Hemoglobin Concent 32.3 Red Cell Distribution Width 15.1 Platelet Count 200 Mean Platelet Volume 11.1 Neutrophils (%) (Auto) 76.1 Lymphocytes (%) (Auto) 17.8 Monocytes (%) (Auto) 4.2 Eosinophils (%) (Auto) 1.5 Basophils (%) (Auto) 0.4 Neutrophils # (Auto) 7.6 Lymphocytes # (Auto) 1.7 Monocytes # (Auto) 0.4 Eosinophils # (Auto) 0.1 Basophils # (Auto) 0.0 CBC Comment DIFF FINAL Differential Comment Prothrombin Time 11.6 Prothromb Time International Ratio 1.0 Activated Partial Thromboplast Time 32.4 D-Dimer Quantitative (PE/DVT) 0.46 Blood Urea Nitrogen 22 Creatinine 1.20 Random Glucose 143 Total Protein 7.4 Albumin 3.0 Calcium Level 8.5 Alkaline Phosphatase 138 Aspartate Amino Transf (AST/SGOT) 15 Alanine Aminotransferase (ALT/SGPT) 25 Total Bilirubin 0.7 Sodium Level 142 Potassium Level 4.1 Chloride Level 109 Carbon Dioxide Level 27.5 Anion Gap 6 Estimat Glomerular Filtration Rate 54 Troponin I LESS THAN 0.02 Lipase 79 Result Diagram: 07/22/17 1010 07/22/17 1010 Imaging Last Impressions Chest X-Ray 07/22/17 5759 Signed Impressions: Service Date/Time: Saturday, July 22, 2017 10:17 - CONCLUSION: Grossly stable chest appearance MD Marjorie Gallardo VTE Risk Assessment Caprini VTE Risk Assessment: Mod/High Risk (score >= 2) Caprini Risk Assessment Model Point Value = 1 Point Value = 2 Point Value = 3 Point Value = 5 Age 41-60 Minor surgery BMI > 25 kg/m2 Swollen legs Varicose veins or History of unexplained or recurrent spontaneous Oral contraceptives or hormone replacement Sepsis (< 1 month) Serious lung disease, including pneumonia (< 1 month) Abnormal pulmonary function Acute myocardial infarction Congestive heart failure (< 1 month) History of inflammatory bowel disease Medical patient at bed rest Age 61-74 Arthroscopic surgery Major open surgery (> 45 min) Laparoscopic surgery (> 45 min) Malignancy Confined to bed (> 72 hours) Immobilizing plaster cast Central venous access Age >= 75 History of VTE Family history of VTE Factor V Leiden Prothrombin [id number] Lupus anticoagulant Anticardiolipin antibodies Elevated serum homocysteine Heparin-induced thrombocytopenia Other congenital or acquired thrombophilia Stroke (< 1 month) Elective arthroplasty Hip, pelvis, or leg fracture Acute spinal cord injury (< 1 month) Prophylaxis Regimen Total Risk Factor Score Risk Level Prophylaxis Regimen 0-1 Low Early ambulation 2 Moderate Order ONE of the following: *Sequential Compression Device (SCD) *Heparin 5000 units SQ BID 3-4 Higher Order ONE of the following medications: *Heparin 5000 units SQ TID *Enoxaparin/Lovenox 40 mg SQ daily (WT < 150 kg, CrCl > 30 mL/min) *Enoxaparin/Lovenox 30 mg SQ daily (WT < 150 kg, CrCl > 10-29 mL/min) *Enoxaparin/Lovenox 30 mg SQ BID (WT < 150 kg, CrCl > 30 mL/min) AND/OR *Sequential Compression Device (SCD) 5 or more Highest Order ONE of the following medications: *Heparin 5000 units SQ TID (Preferred with Epidurals) *Enoxaparin/Lovenox 40 mg SQ daily (WT < 150 kg, CrCl > 30 mL/min) *Enoxaparin/Lovenox 30 mg SQ daily (WT < 150 kg, CrCl > 10-29 mL/min) *Enoxaparin/Lovenox 30 mg SQ BID (WT < 150 kg, CrCl > 30 mL/min) AND *Sequential Compression Device (SCD) Assessment and Plan Problem List: (1) Obesity ICD Code: E66.9 - Obesity, unspecified Status: Acute (2) Stage 3 chronic kidney disease ICD Code: N18.3 - Chronic kidney disease, stage 3 (moderate) Status: Acute (3) Chest pain, atypical ICD Code: R07.89 - Other chest pain Status: Acute (4) DM (diabetes mellitus) ICD Code: E11.9 - Type 2 diabetes mellitus without complications Status: Acute (5) Hypertension ICD Code: I10 - Essential (primary) hypertension Status: Acute (6) Hyperlipidemia ICD Code: E78.5 - Hyperlipidemia, unspecified Status: Acute Assessment and Plan -Chest pain, somewhat atypical in nature however she has multiple risk factors. We'll place in the chest pain center obtain serial EKG and troponin initial results are nonischemic. Plan for Kena scan stress test in the morning of workup negative. Hypertension-resume home meds Chronic kidney disease stage III-stable Type [address] on sliding scale insulin Uterine cancer status post hysterectomy several months ago and apparently she has an abnormal PET scan with uptake in the stomach History of DVT on Xarelto - dose recently decreased by her primary care physician continue Xarelto 10 mg daily. Hyperlipidemia-continue statin Natali Levine MD Jul 22, 2017 13:29
[2017-07-22 13:32] LABS: CREATINE KINASE 62 U/L (26-192)
[2017-07-22] MEDS: MORPHINE SULFATE 2 MG/ML INJ IV PRN ×2 (15:36→20:26)
[2017-07-22] MEDS: INSULIN ASPART SUPPLEMENTAL SCALE SQ SCH ×2 (17:00→20:48)
[2017-07-22 17:33] LABS: CREATINE KINASE 58 U/L (26-192)
--- NOTE | 2017-07-22 19:00 | EKG ---
Date Performed: 07/22/2017 Time Performed: 09:48:41 PTAGE: 66 years EKG: Sinus rhythm WITH FIRST DEGREE AV BLOCK BORDERLINE LEFT AXIS DEVIATION MINIMAL VOLTAGE CRITERIA FOR LVH, CONSIDER NORMAL VARIANT ABNORMAL ECG Compared to prior tracing no significant change PREVIOUS TRACING : 04/16/2017 10.24 DOCTOR: Janet Cancino Interpretating Date/Time 07/22/2017 18:58:45
[2017-07-22] MEDS: SODIUM CHLORIDE 0.9% FLUSH 10 ML FLUSH IV FLUSH SCH (20:39)
[2017-07-23] VITALS (9 sets, daily range): BP systolic 142–155; BP diastolic 64–86; PULSE 52–70; RESP 16–20; TEMP 95–98.2; O2SAT 94–97
[2017-07-23] MEDS: MORPHINE SULFATE 2 MG/ML INJ IV PRN ×3 (04:05→17:07)
[2017-07-23] MEDS: INSULIN ASPART SUPPLEMENTAL SCALE SQ SCH ×4 (08:00→22:34)
[2017-07-23] MEDS: ASPIRIN 325 MG TAB PO SCH (08:38)
[2017-07-23] MEDS: CITALOPRAM HYDROBROMIDE 20 MG TAB PO SCH (08:38)
[2017-07-23] MEDS: RIVAROXABAN 10 MG TAB PO SCH (08:38)
[2017-07-23] MEDS: ATORVASTATIN 20 MG TAB PO SCH (08:38)
[2017-07-23] MEDS: NIFEdipine 30 MG SUSTAINED RELEASE TAB PO SCH (08:39)
[2017-07-23] MEDS: SODIUM CHLORIDE 0.9% FLUSH 10 ML FLUSH IV FLUSH SCH ×2 (08:40→21:00)
[2017-07-23] MEDS ORDERED: RIVAROXABAN 10 MG TAB PO SCH (09:00)
--- NOTE | 2017-07-23 09:55 | EKG ---
Date Performed: 07/22/2017 Time Performed: 16:26:45 PTAGE: 66 years EKG: SINUS BRADYCARDIA BORDERLINE LEFT AXIS DEVIATION MINIMAL VOLTAGE CRITERIA FOR LVH, CONSIDER NORMAL VARIANT BORDERLINE ECG PREVIOUS TRACING : 07/22/2017 12.58 DOCTOR: Rey Hwang Interpretating Date/Time 07/23/2017 09:54:06
[2017-07-23] MEDS ORDERED: INFLUENZA VIRUS VACCINE (QUADRIVALENT) 0.5 ML SYR IM ONE (10:00)
--- NOTE | 2017-07-23 10:02 | EKG ---
Date Performed: 07/22/2017 Time Performed: 12:58:49 PTAGE: 66 years EKG: SINUS BRADYCARDIA WITH FIRST DEGREE AV BLOCK ARM LEADS REVERSED ABNORMAL ECG PREVIOUS TRACING : 07/22/2017 09.48 DOCTOR: Rey Hwang Interpretating Date/Time 07/23/2017 10:01:14
[2017-07-23] MEDS ORDERED: REGADENOSON INJ 0.4 MG/5 ML SYR IV ONE (11:21)
--- NOTE | 2017-07-23 11:51 | HHI.FF ---
Face to Face Verification Diagnosis: (1) Obesity (2) Hypertension (3) DM (diabetes mellitus) (4) Chest pain, atypical Physical Therapy Order: Evaluate and Treat, Improve ambulation, Strength and gait training Home Health Nursing Order: Medical education Signs/symptoms of disease process Diabetic education Nursing assessment with vital signs I have seen patient Job Mckeon on 07/23/17. My clinical findings support the need for the requested home health care services because: Deconditioned w/ increased weakness Limited ability to care for self I certify that my clinical findings support that this patient is homebound because: Unsteady gait/balance Aristeo Celaya Jul 23, 2017 11:51
--- NOTE | 2017-07-23 12:32 | RADRPT ---
EXAM DATE/TIME: 07/23/2017 11:08 CORRECTION Corrected on: July 23, 2017; [facility] COMPARISON: No previous studies available for comparison. INDICATIONS : Retrosternal chest pain. Angina. DOSE: 35 mCi Tc99m Myoview at stress. 11 mCi Tc99m Myoview at rest. 0.4 mg Lexiscan STRESS SYMPTOMS: Short of breath. EJECTION FRACTION: 62% MEDICAL HISTORY : Hypertension. Hypothyroidism. Diabetes mellitus type 2. Uterine cancer. SURGICAL HISTORY : Tubal ligation. Hysterectomy. ENCOUNTER: Initial ACUITY: 1 day PAIN SCALE: 3/10 LOCATION: Retrosternal chest TECHNIQUE: The patient underwent pharmacologic stress with infusion of prescribed dose. Continuous ECG tracing was monitored during stress. Gated SPECT imaging was performed after stress and conventional SPECT i maging was performed at rest. The examination was performed on a SPECT/CT scanner, both attenuation and non-corrected datasets were reviewed. FINDINGS: There is redistribution on the resting images involving the anterior lateral wall. The best perfused wall at stress is the septum. Moderate gut activity does obscure the inferior wall. The ejection fraction is 62%. CONCLUSION: Stress induced ischemia with redistribution anterior lateral wall involving a large segment of myoca rdium however wall motion remains normal. RISK CATEGORY: Low (<1% Annual Mortality Rate) Martin Buck MD FACR on July 23, 2017 at 12:26 Board Certified Radiologist. This report was verified electronically. Martin Buck MD FACR on July 23, 2017 at 12:54 Board Certified Radiologist. This report was verified electronically.
--- NOTE | 2017-07-23 12:42 | TR ---
Date Performed: 07/23/2017 Time Performed: 11:35:00 DOCTOR: Joshua Padilla DRUG LIST: CLINICAL HISTORY: REASON FOR TEST: REASON FOR ENDING: OBSERVATION: CONCLUSION: Lexiscan stress test was performed under standard four minute protocol. Radionuclid e was injected one minute prior to ending the test. No electrocardiographic abormalities were present to suggest ischemia. Nuclear imaging and interpretation are pending. COMMENTS:
[2017-07-23] MEDS ORDERED: methylPREDNISolone SOD SUCC 125 MG/2 ML VIAL IV PUSH ONE (14:15)
[2017-07-23] MEDS ORDERED: FAMOTIDINE 20 MG/2 ML VIAL IV PUSH ONE (14:15)
[2017-07-23] MEDS ORDERED: PILL SPLITTER OTHER PRN (14:15)
[2017-07-23] MEDS: METOPROLOL TARTRATE 25 MG TAB PO SCH ×2 (14:24→20:21)
--- NOTE | 2017-07-23 15:43 | HHI.PR ---
Subjective Remarks Patient seen this morning around 11 AM. Denies any chest pain this morning. Denies any nausea or vomiting. Objective Vital Signs Date Time Temp Pulse Resp B/P (MAP) Pulse Ox O2 Delivery O2 Flow Rate FiO2 07/23/17 12:00 97.2 52 18 155/67 (96) 97 07/23/17 08:00 95.0 60 18 148/68 (94) 94 07/23/17 04:00 59 07/23/17 04:00 96.5 60 20 154/86 (108) 97 07/23/17 00:00 98.2 56 20 142/64 (90) 96 07/23/17 00:00 55 07/22/17 20:48 97 21 07/22/17 20:08 56 07/22/17 20:08 58 07/22/17 20:00 98.2 59 20 152/66 (94) 96 07/22/17 16:42 93 21 07/22/17 16:40 20 07/22/17 16:00 56 07/22/17 16:00 97.4 50 18 145/65 (91) 97 07/22/17 16:00 56 I/O 07/22/17 07/22/17 07/22/17 07/23/17 07/23/17 07/23/17 07:00 15:00 23:00 07:00 15:00 23:00 Intake Total 450 ml 0 ml 0 ml Balance 450 ml 0 ml 0 ml Intake Oral 450 ml 0 ml 0 ml # Voids 2 2 2 # Bowel Movements 1 0 Result Diagram: 07/22/17 1010 07/22/17 1010 Objective Remarks GENERAL: Morbidly obese female. Appears comfortable. Alert and oriented 3. SKIN: Warm and dry. HEAD: Normocephalic. EYES: No scleral icterus. No injection or drainage. NECK: Supple, trachea midline. No JVD. CARDIOVASCULAR: Regular rate and rhythm without murmurs, gallops, or rubs. RESPIRATORY: Breath sounds equal bilaterally. No accessory muscle use. GASTROINTESTINAL: Abdomen soft, non-tender, nondistended. MUSCULOSKELETAL: No cyanosis, or edema. BACK: Nontender without obvious deformity. No CVA tenderness. A/P Assessment and Plan //Chest pain, somewhat atypical in nature however she has multiple risk factors. We'll place in the chest pain center obtain serial EKG and troponin initial results are nonischemic. = Lexiscan with stress-induced ischemia as above. Consult cardiology, who recommends transfer to [facility] for cardiac catheterization. Appreciate assistance. Transfer to [facility] //Hypertension-blood pressure acceptable. Continue home meds //Chronic kidney disease stage III-stable. Recheck labs tomorrow. //Type 2 diabetes. Continue on sliding scale insulin //Uterine cancer status post hysterectomy several months ago and apparently she has an abnormal PET scan with uptake in the stomach -Follow with primary care and oncology as outpatient. //History of DVT on Xarelto - dose recently decreased by her primary care physician continue Xarelto 10 mg daily. //Morbid obesity. BMI 51.8. Recommend weight loss as outpatient. //Hyperlipidemia-continue statin Discharge Planning //Pending cardiology clearance. -We'll need follow-up with primary care for uterine cancer. Daniel Conte MD Jul 23, 2017 15:43
[2017-07-23 16:19] LABS: HDL CHOLESTEROL 52.1 MG/DL (40.0-60.0)
[2017-07-23] MEDS ORDERED: IOHEXOL 350 MG/ML 100 ML BTL (for Cath Lab) OTHER ONE (17:22)
[2017-07-23] MEDS ORDERED: MIDAZOLAM HCL 2 MG/2 ML VIAL ONE (18:02)
[2017-07-23] MEDS ORDERED: SODIUM CHLOR 0.9% 1000 ML INJ 500 ML IV SCH (18:27)
--- NOTE | 2017-07-23 18:36 | CATHPROC ---
Travel Appeal HIS Report Study Information Study Number Admission Scheduled Start Study Start [id number] Jul 22 2017 12:19PM 07/23/2017 Jul 23 2017 5:22PM [place] [facility] Cardiac Catheterization Admit Source Facility Department Transfer in from another acute care facility [facility] - Maintenance Team Leader Physician and Clinical Staff Initial Cale Rea Med Aide Kerrie Chandler,RN Med Aide Marilyn Delaney BSN Recorder Vernon Grant,RT(R) Scrub Vania Mcgee,RT(R) Procedures Performed Procedure Location (Site) Vessel Name Angiogram LV LV Ventricle Coronary Angiograms LCA Left Coronary Coronary Angiograms RCA Right Coronary L Heart Cath Equipment Time Rn Staffing Description Size Mfg Part Number Used/Scraped TRANSDUCER, TRPhysihomeAVE [id number] 17:36 Prognosis [employer] Information Systems * Used W/STOCKCOCK *[id number] 534-576T *[id number] 534-548T *[id number] 534-520T *[id number] [id number] *[id number] 17:36 MEDLINE [employer] PACK, CCL CUSTOM * Used *[id number] 17:36 [place] PACER PEN, SKIN DUAL W/ RULER * Used *[id number] 17:36 [employer] WIRE, 3MMJ .035 180CM 180CM Used *[id number] PROBE COVER, STERILE [id number] 17:36 SemEqu[employer] * Used ULTRASOUND W/ GEL *[id number] 17:36 NAMIC MANIFOLD, 4 PORT * Used *[id number] 17:36 NAMIC TUBING, HIGH PRESSURE 48" 48" Used *[id number] 17:36 NYCOMED OMNIPAQUE, 350 MG, 150ML 150ML [id number] Used 18:06 NYCOMED OMNIPAQUE, 350 MG, 50ML 50ML [id number] Used [id number] 17:36 AMN MEDICAL BLANKET,WARM AIR CCL * Used *[id number] 17:36 TERUMO MEDICAL SHEATH, FR5 TERUMO (10CM) FR 5 Used *[id number] History: Allergies Allergy Reaction Contrast Media dye iohexol diatrizoate meglumine gadoteridol gadodiamide iodixanol gadobenic acid Iodinated Contrast- Oral and IV Dye History: Risk Factors Family History of Hypertension Dyslipidemia Previous CA Previous Heart Failure Premature CAD Yes Yes Yes No No Prior Valve Prior PCI Prior CABG Surgery No No No Cerebrovascular Peripheral Artery Chronic Lung On Dialysis Diabetes Diabetes Therapy Disease Disease Disease No No No No Yes Insulin History: Stress Tests Stress or Imaging Studies Performed Yes Standard Exercise Stress Test No Stress Echo No Stress Test SPECT Stress Test SPECT Result Stress Test SPECT Ischemia Risk/Extent Yes Positive Intermediate Stress Test CMR No Cardiac CTA Coronary Calcium Score No No History: Other Disease Selection Items HTN History: Other Current Smoker No Labs Hgb (g/dl) Hct (%) RBC (MIL/MM3) WBC (l/cumm) Platelets (thousands) 11.60-17.00 35.00-51.00 4.00-5.90 4.00-11.00 150.00-450.00 12.1 37.5 4.7 9.8 200 Glucose (mg/dl) BUN (mg/dl) Creatinine (mg/dl) BUN:Creatinine (1:x) 74.00-106.00 7.00-18.00 0.50-1.30 10.00-20.00 113 22 1.2 18.3 Na (meq/l) K (meq/l) Cl (meq/l) CO2 (mmol/L) Ca (mg/dl) 136.00-145.00 3.50-5.10 98.00-107.00 21.00-32.00 8.50-10.10 142 4.1 109 27.5 8.5 PT (sec) PTT (sec) INR (PTT:PT) 9.80-11.60 24.30-30.10 0.90-1.10 11.6 32.4 1 Troponin I (ng/ml) Troponin T (ng/ml) CPK-MB (ng/ML) 0.02-0.05 0.40-2.10 0.50-3.60 0.02 0.02 Not Drawn Medication Medication Total Dose (Bolus/Oral) Medication Total Dosage/Unit 1% XYLOCAINE 20 mL BENADRYL 50 mg FENTANYL 100 mcg VERSED 5 mg Medications (Bolus/Oral) Medication Time Given Dosage/Unit Administered By Reason BENADRYL 07/23/2017 5:30:10 PM 50 mg Kerrie Chandler Patient arrived on 50 mg BENADRYL given by Kerrie Chandler RN in Right Antecubital via Peripheral IV. VERSED 07/23/2017 5:36:57 PM 2 mg Hesher, Kerrie 2 mg VERSED given in lab by Kerrie Chandler RN in Right Antecubital via Peripheral IV. FENTANYL 07/23/2017 5:37:24 PM 50 mcg Hesher, Kerrie 50 mcg FENTANYL given in lab by Kerrie Chandler RN in Right Antecubital via Peripheral IV. VERSED 07/23/2017 5:42:29 PM 1 mg Hesher, Kerrie 1 mg VERSED given in lab by Kerrie Chandler RN in Right Antecubital via Peripheral IV. FENTANYL 07/23/2017 5:44:56 PM 50 mcg Hesher, Kerrie 50 mcg FENTANYL given in lab by Kerrie Chandler RN in Right Antecubital via Peripheral IV. 1% XYLOCAINE 07/23/2017 6:03:04 PM 20 mL [place] 20 mL 1% XYLOCAINE given in lab by [place] in Right Groin via Subcutaneous. VERSED 07/23/2017 6:03:45 PM 1 mg Hesher, Kerrie 1 mg VERSED given in lab by Kerrie Chandler RN in Right Antecubital via Peripheral IV. VERSED 07/23/2017 6:18:30 PM 1 mg Hesher, Kerrie 1 mg VERSED given in lab by Kerrie Chandler RN in Right Antecubital via Peripheral IV. Medication (Drip) Medication Time Given Dosage/Unit Concentration/Unit Diluent (ml) Solutio n IV Solutions 07/23/2017 5:28:09 PM 0 mL (IV) 500 NaCl .9 Patient arrived on IV Solutions in Right Antecubital via Peripheral IV. Pump/Drip Flow = 20 ml/hr usi ng NaCl .9. Initial Case Assessment Cardiovascular HR Rhythm NIBP Chest Pain 55 reg 156/74 0 Edema Present Skin color Skin None Normal Warm Neurological State Oriented to time-place- Alert Moves all extremities person Respiration - General Respiration Rate SpO2 (%) O2 (lpm) (B/min) 12 98 2 Final Case Assessment Cardiovascular HR Rhythm NIBP Chest Pain 60 Sinus 140/73 0 Edema Present Skin color Skin None Normal Warm Dry Circulatory - Right Pulses Dorsalis Pedis Femoral 2 2 Scale (0,1,2,3,4,d) Circulatory - Left Pulses Dorsalis Pedis Femoral 2 2 Scale (0,1,2,3,4,d) Neurological State Oriented to time-place- Alert Moves all extremities person Respiration - General Respiration Rate SpO2 (%) O2 (lpm) (B/min) 31 99 2 Chronological Log Time Study Chronological Log 17:22:09 Patient arrived via Bed. 17:22:10 Patient Name, D.O.B, / Armband Verified By R.N. 17:22:11 Consent signed by the physician and the patient and verified by the Maintenance Team Leader staff. 17:22:11 Pre-op and post- op instructions given; patient acknowledges understanding of instructions. 17:22:12 Verbal Stimulation=2 Physical Stimulation=2 Airway=2 Respiration=2 TOTAL=8. (0=absent, 1=li mited, 2=present) 17:22:15 Patient has been NPO for More than 6Hrs. 17:22:17 Skin Breakdown-none 17:27:30 Reference ECG taken Vitals capture started with the following parameters, Patient=Adult, Interval=5 min, Initial Pr wavcwz=546 mmHg, 17:27:32 Deflation Rate=5 mmHg, Cuff placed on Left Arm 17:28:02 A # 20 IV was noted in the Antecubital (right). Grade = 0 17:28:09 Patient arrived on IV Solutions in Right Antecubital via Peripheral IV. Pump/Drip Flow = 20 ml/hr using NaCl .9. 17:28:23 History and physical on the chart or being dictated. Assessment: Initial Case, HR=55 BPM, Rhythm=reg, EMYM=577/74 mmhg, Chest Pain=0, Edema=None, Co josh=Normal, Skin = Warm 17:28:24 Neurological: State=Alert, Ox3, SEPULVEDA Respiration: Resp=12 B/min, SpO2=98 %, O2=2 lpm 17:28:56 HR=52 bpm, QXJM=519/74 mmhg, SpO2=96.0 %, Resp=18 B/min, Pain=0, Ronna=10, Nava=2 17:30:10 Patient arrived on 50 mg BENADRYL given by Kerrie Chandler, MYAH in Right Antecubital via Fidelia pheral IV. 17:33:14 HR=63 bpm, QAQR=480/81 mmhg, SpO2=99.0 %, Resp=7 B/min, Pain=0, Ronna=10, Nava=2 17:36:57 2 mg VERSED given in lab by Kerrie Chandler RN in Right Antecubital via Peripheral IV. 17:37:24 50 mcg FENTANYL given in lab by Kerrie Chandler RN in Right Antecubital via Peripheral IV. 17:38:13 HR=69 bpm, EZHR=095/81 mmhg, SpO2=94.0 %, Resp=25 B/min, Pain=0, Ronna=10, Nava=2 17:42:29 1 mg VERSED given in lab by Kerrie Chandler, MYAH in Right Antecubital via Peripheral IV. 17:42:47 Bilateral groins prepped with 2% chlorhexidine, and draped after a 3 minute waiting time. 17:42:52 MD arrived. 17:43:14 HR=59 bpm, GMZA=357/75 mmhg, SpO2=94.0 %, Resp=0 B/min, Pain=0, Ronna=10, Nava=2 17:44:56 50 mcg FENTANYL given in lab by Kerrie Chandler RN in Right Antecubital via Peripheral IV. 17:46:47 Pressure channel 1 zeroed. 17:48:15 HR=57 bpm, MPJC=612/80 mmhg, SpO2=97.0 %, Resp=17 B/min, Pain=0, Ronna=10, Nava=2 17:53:14 HR=55 bpm, NNOY=706/79 mmhg, SpO2=94.0 %, Resp=15 B/min, Pain=0, Ronna=10, Nava=2 17:58:13 HR=56 bpm, MZQM=879/69 mmhg, SpO2=94.0 %, Resp=30 B/min, Pain=0, Ronna=10, Nava=2 Time Out. Correct patient, correct procedure, correct physician, power injector loaded with con trast with surgical team 18:02:37 present. Time Out Concurred by MD and individual staff in procedure. 18:03:00 Case Start 18:03:04 20 mL 1% XYLOCAINE given in lab by [place] in Right Groin via Subcutaneous. 18:03:12 HR=56 bpm, HXCM=427/77 mmhg, SpO2=96.0 %, Resp=18 B/min, Pain=0, Ronna=10, Nava=2 18:03:45 1 mg VERSED given in lab by Kerrie Chandler RN in Right Antecubital via Peripheral IV. 18:05:04 Access site was Right Femoral Artery. 18:05:11 A SHEATH, FR5 TERUMO (10CM) FR 5 was advanced into the Fem Art (right) using the Percutaneo us technique. A PIGTAIL ANG. INFINITI CATHETER FR 5 was advanced over a wire. OMNIPAQUE, 350 MG, 50ML 50ML wa s used for 18:05:48 injections. Recorded Pressure: LV, HR=57, Condition=Condition 1 18:07:15 (Left Ventricle) LV 159/9/20 18:08:07 The LV was injected at 10 cc/sec for a total of 20. OMNIPAQUE, 350 MG, 50ML 50ML used. 18:08:52 HR=53 bpm, IKUC=138/72 mmhg, SpO2=97.0 %, Resp=45 B/min, Pain=0, Ronna=10, Nava=2 Recorded Pressure: LV, HR=?, Condition=Condition 1 18:09:05 (Left Ventricle) LV ?/?/? 18:09:19 Catheter was removed A JL 4.0 INFINITI CATHETER FR 5 was advanced over a wire. OMNIPAQUE, 350 MG, 150ML 150ML was us ed for 18:09:37 injections. Recorded Pressure: Ao, HR=54, Condition=Condition 1 18:10:27 (Aorta) Ao 142/66/97 18:10:37 The LCA was injected and visualized at various angles. OMNIPAQUE, 350 MG, 150ML 150ML used . 18:12:15 Catheter was removed A AR MOD INFINITI CATHETER FR 5 was advanced over a wire. OMNIPAQUE, 350 MG, 150ML 150ML was us ed for 18:12:27 injections. 18:13:12 HR=60 bpm, JYWA=575/77 mmhg, SpO2=95.0 %, Resp=32 B/min, Pain=0, Ronna=10, Nava=2 18:15:01 Catheter was removed A 3DRC INFINITI CATHETER FR 5 was advanced over a wire. OMNIPAQUE, 350 MG, 150ML 150ML was used for 18:15:02 injections. 18:16:30 The RCA was injected and visualized at various angles. OMNIPAQUE, 350 MG, 150ML 150ML used . 18:17:22 Catheter was removed 18:17:26 Case End 18:18:19 HR=60 bpm, JKIN=251/62 mmhg, SpO2=97.0 %, Resp=57 B/min, Pain=0, Ronna=10, Nava=2 18:18:30 1 mg VERSED given in lab by Kerrie Chandlre RN in Right Antecubital via Peripheral IV. 18:19:24 An injection in the Fem Art (right) was made through the SHEATH, FR5 TERUMO (10CM) FR 5. 18:23:16 HR=59 bpm, USTG=823/62 mmhg, SpO2=95.0 %, Resp=30 B/min, Pain=0, Ronna=10, Nava=2 18:28:50 HR=58 bpm, MOXF=522/73 mmhg, SpO2=94.0 %, Resp=40 B/min, Pain=0, Ronna=10, Nava=2 Assessment: Final Case, HR=60 BPM, Rhythm=Sinus, BAZT=535/73 mmhg, Chest Pain=0, Edema=None, Color=Normal, Skin = Warm, Dry Right Pulses: Abdoul Ped=2, Femoral=2 18:30:26 Left Pulses: Abdoul Ped=2, Femoral=2 Neurological: State=Alert, Ox3, SEPULVEDA Respiration: Resp=31 B/min, SpO2=99 %, O2=2 lpm 18:32:00 Sterile dressing applied to site 18:32:02 No case complications noted. 18:32:05 Cine recording checked. 18:32:07 Bedside Report will be given. 18:33:30 A Left Heart Cath was performed. 18:33:57 VN=507 bpm, YSEI=767/68 mmhg, SpO2=96.0 %, Resp=19 B/min, Pain=0, Ronna=10, Nava=2 18:34:38 Vitals capture stopped. 18:36:33 Patient moved to stretcher End Study - Contrast Media Used In Study Contrast Total Opened (mL) Total Used (mL) Total Wasted (mL) Omnipaque 150 85 65 End Study - Maximum Contrast Load Max Contrast Load (mL) 562.5 End Study - Radiation Exposure Fluoro Time (minutes) 2.8 End Study - Patient Disposition Complications Transferred To Interventional Outcome No Telemetry Bed No attempt made
--- NOTE | 2017-07-23 18:51 | MB ---
cc: ADEBAYO JACKMAN DATE OF CONSULTATION 07/23/2017 HISTORY OF THE PRESENT ILLNESS Ms. Mckeon is a 66-year-old black female with a history of hypertension and diabetes mellitus. She presented with substernal chest discomfort for which was sharp, associated with shortness of breath. She got improvement of her pain with nitroglycerin in the emergency room. She underwent nuclear marker perfusion study which showed anterolateral ischemia. PAST MEDICAL HISTORY Positive for: 1. Hypertension. 2. Chronic kidney disease stage III. 3. Type 2 diabetes mellitus. 4. Uterine cancer status post hysterectomy. 5. She had abnormal PET scan with uptake in the stomach. 6. History of DVT. Dose was recently decreased by her primary physician. 7. History of dyslipidemia. 8. Depression. 9. Hysterectomy. 10. Carpal tunnel release. 11. Left knee arthroplasty. 12. Right knee arthroplasty. MEDICATIONS Include: 1. Nifedipine. 2. Oxycodone. 3. Citalopram. 4. Humalog insulin. 5. Starlix. 6. Lantus. 7. Xarelto 10 milligrams daily. 8. Allopurinol. 9. Atorvastatin. 10. Lortab. 11. Lasix. 12. Metoprolol. 13. Gabapentin. ALLERGIES IV CONTRAST SOCIAL HISTORY The patient does not smoke. She drinks alcohol socially infrequently. FAMILY HISTORY Positive for heart disease in her mother. REVIEW OF SYSTEMS Otherwise negative. PHYSICAL EXAMINATION VITAL SIGNS: Blood pressure 155/67, pulse 52 and regular. HEENT: Negative. NECK: 2+ carotid upstrokes. No bruits. LUNGS: Clear. HEART: Regular with no murmur, gallops or rub. ABDOMEN: Soft. Obese. No bruits. EXTREMITIES: Without edema. 1-2+ distal pulses. NEUROLOGIC: Examination is grossly nonfocal. EKG was reviewed and showed normal sinus rhythm, normal axis intervals, left ventricular hypertrophy. LABORATORY DATA Hemoglobin 12.1. Potassium 4.1, creatinine 1.20. Troponin negative x3. CK 62 and 58. AST and ALT normal. LDL 37, HDL 52. DIAGNOSES 1. New onset angina. 2. Abnormal nuclear myocardial perfusion study consistent with anterolateral ischemia. 3. Hypertension. 4. Type 2 diabetes mellitus. 5. Chronic kidney disease. 6. History of DVT. DISPOSITION Ms. Mckeon will undergo cardiac catheterization and coronary intervention if necessary. The patient understands risks and benefits, and wishes to proceed. We will continue aggressive modification of her cardiac risk factors. MD JESS Donahue/BLANK /5:25 PM /6:26 PM KENJI
[2017-07-23] MEDS: ACETAMINOPHEN/HYDROcodone 325 MG/5 MG TAB PO PRN (20:21)
--- NOTE | 2017-07-23 23:21 | MA ---
cc: ADEBAYO JACKMAN MD DATE: 07/23/2017 INDICATIONS Unstable angina, intermediate probability nuclear myocardial perfusion study, class III angina. PROCEDURE PERFORMED 1. Retrograde left heart catheterization with left ventriculography and selective coronary angiography. 2. Moderate sedation. ACCESS SITE Right femoral artery. EQUIPMENT USED 5 [place] pigtail catheter, 5 [place] JL4 and AR modified coronary artery catheters. MEDICATIONS Versed IV, Fentanyl IV. CONTRAST Omnipaque 85 cc. COMPLICATIONS None. BLOOD LOSS: Less than 10 cc. METHOD OF HEMOSTASIS Vascade closure RESULTS HEMODYNAMICS Heart rate 60 beats per minute. Left ventricular end-diastolic pressure 10 mmHg. Left ventricle 140/10. Aorta 148/66/97 Left ventricular ejection fraction, 60%. Wall motion normal. No mitral regurgitation. CORONARY ANGIOGRAPHY The left main coronary artery patent. Left anterior descending coronary artery has mild 20% narrowing in the proximal - mid portion. D1 patent. Left circumflex patent. OM1 patent. OM2 patent. Right coronary artery is a dominant vessel which is patent. PDA patent. PLV patent. DIAGNOSIS: 1. Mild nonobstructive coronary artery disease. 2. Preserved left ventricular systolic function. DISPOSITION: Ms. Mckeon can be reassured about her cardiac status. She has no significant obstructive coronary artery disease and preserved left ventricular systolic function. RECOMMENDATIONS: She will continue her current medical program including modification of her cardiac risk factors. Her nuclear myocardial perfusion study was falsely abnormal. MD JESS Donahue/ERYNALDO /6:30 PM /10:58 PM KENJI
[2017-07-24] VITALS (26 sets, daily range): BP systolic 130–167; BP diastolic 56–72; PULSE 51–84; RESP 16–20; TEMP 97.8–99.2; O2SAT 93–97
[2017-07-24] MEDS: SODIUM CHLOR 0.9% 1000 ML INJ 1,000 ML IV SCH ×2 (03:40→15:35)
[2017-07-24 05:34] LABS: BICARBONATE 21.3 MEQ/L (21.0-32.0); POTASSIUM 5.1 MEQ/L (3.5-5.1)
[2017-07-24 05:36] LABS: HDL CHOLESTEROL 62.8 MG/DL (40.0-60.0)
[2017-07-24] MEDS: INSULIN ASPART SUPPLEMENTAL SCALE SQ SCH ×4 (08:00→21:53)
[2017-07-24] MEDS: ACETAMINOPHEN/HYDROcodone 325 MG/5 MG TAB PO PRN ×3 (08:16→21:52)
[2017-07-24] MEDS: RIVAROXABAN 10 MG TAB PO SCH (08:45)
[2017-07-24] MEDS: ATORVASTATIN 20 MG TAB PO SCH (08:45)
[2017-07-24] MEDS: NIFEdipine 30 MG SUSTAINED RELEASE TAB PO SCH (08:46)
[2017-07-24] MEDS: CITALOPRAM HYDROBROMIDE 20 MG TAB PO SCH (08:46)
[2017-07-24] MEDS: SODIUM CHLORIDE 0.9% FLUSH 10 ML FLUSH IV FLUSH SCH ×2 (08:46→21:52)
[2017-07-24] MEDS: METOPROLOL TARTRATE 25 MG TAB PO SCH ×2 (08:46→21:52)
[2017-07-24] MEDS: ASPIRIN 325 MG TAB PO SCH (08:46)
--- NOTE | 2017-07-24 12:30 | PD.CARD.PN ---
Subjective Subjective Remarks No CP or SOB, feels better Objective Medications Current Medications Medications (Trade) Dose Ordered Sig/Steven Route Start Time Stop Time Status Last Admin (NS Flush) 2 ml UNSCH PRN IV FLUSH 07/22/17 12:30 (NS Flush) 2 ml BID IV FLUSH 07/22/17 21:00 07/24/17 08:46 (Morphine Inj) 2 mg Q4H PRN IV 07/22/17 13:00 07/23/17 17:07 (Zofran Inj) 4 mg Q6H PRN IV PUSH 07/22/17 12:30 (Nitrostat Sl) 0.4 mg Q5M PRN SL 07/22/17 12:30 (Aspirin) 325 mg DAILY PO 07/23/17 09:00 07/24/17 08:46 (D50w (Vial) Inj) 50 ml UNSCH PRN IV PUSH 07/22/17 12:30 (Glucagon Inj) 1 mg UNSCH PRN OTHER 07/22/17 12:30 (NovoLOG SUPPLEMENTAL SCALE) 1 ACHS SLIDING SCALE SQ 07/22/17 17:00 07/24/17 12:21 (Lipitor) 20 mg DAILY PO 07/23/17 09:00 07/24/17 08:45 (CeleXA) 20 mg DAILY PO 07/23/17 09:00 07/24/17 08:46 (Procardia Xl) 30 mg DAILY PO 07/23/17 09:00 07/24/17 08:46 (Xarelto) 10 mg DAILY PO 07/23/17 09:00 07/24/17 08:45 ([place] 5-325 Mg) 1 tab Q6H PRN PO 07/22/17 13:30 07/24/17 08:16 (Lopressor) 12.5 mg Q12HR PO 07/23/17 14:00 07/24/17 08:46 (Pill Splitter) 1 ea UNSCH PRN OTHER 07/23/17 14:15 Sodium Chloride 1,000 ml @ 84 mls/hr [id number] IV 07/23/17 15:45 Vital Signs / I&O Vital Signs Date Time Temp Pulse Resp B/P (MAP) Pulse Ox O2 Delivery O2 Flow Rate FiO2 07/24/17 10:30 97 07/24/17 10:00 64 07/24/17 09:36 16 07/24/17 09:00 65 07/24/17 08:00 97.8 64 16 167/72 (103) 95 07/24/17 08:00 64 07/24/17 06:08 51 07/24/17 05:51 55 07/24/17 04:14 97.9 65 16 156/68 (97) 97 07/24/17 04:14 59 07/24/17 03:25 57 07/24/17 02:22 57 07/24/17 01:01 67 07/24/17 00:20 98.1 70 18 144/56 (85) 93 07/24/17 00:15 68 07/23/17 23:00 66 07/23/17 22:15 70 07/23/17 21:00 62 07/23/17 20:39 97.8 66 16 152/67 (95) 94 07/23/17 19:20 65 07/23/17 18:59 96 Room Air I/O 07/23/17 07/23/17 07/23/17 07/24/17 07/24/17 07/24/17 07:00 15:00 23:00 07:00 15:00 23:00 Intake Total 0 ml 0 ml 720 ml Output Total 300 ml Balance 0 ml 0 ml 420 ml Intake Oral 0 ml 0 ml 720 ml Output Urine Total 300 ml # Voids 2 2 2 # Bowel Movements 0 0 Physical Exam GENERAL: In NAD SKIN: Warm and dry. HEAD: Normocephalic. EYES: No scleral icterus. No injection or drainage. NECK: Supple, trachea midline. No JVD or lymphadenopathy. CARDIOVASCULAR: Regular rate and rhythm without murmurs, gallops, or rubs. RESPIRATORY: Breath sounds equal bilaterally. No accessory muscle use. GASTROINTESTINAL: Abdomen soft, non-tender, nondistended. MUSCULOSKELETAL: No cyanosis, or edema. Groin stable Laboratory Laboratory Tests Test 07/23/17 14:20 07/24/17 04:51 Triglycerides Level 135 MG/DL 102 MG/DL Cholesterol Level 116 MG/DL 125 MG/DL LDL Cholesterol 37 MG/DL 42 MG/DL HDL Cholesterol 52.1 MG/DL 62.8 MG/DL Cholesterol/HDL Ratio 2.22 RATIO 1.99 RATIO Blood Urea Nitrogen 22 MG/DL Creatinine 1.52 MG/DL Random Glucose 399 MG/DL Calcium Level 8.4 MG/DL Sodium Level 135 MEQ/L Potassium Level 5.1 MEQ/L Chloride Level 104 MEQ/L Carbon Dioxide Level 21.3 MEQ/L Anion Gap 10 MEQ/L Estimat Glomerular Filtration Rate 41 ML/MIN Assessment and Plan Problem List: (1) Abnormal nuclear stress test ICD Codes: R94.39 - Abnormal result of other cardiovascular function study (2) Angina pectoris ICD Codes: I20.9 - Angina pectoris, unspecified (3) DM (diabetes mellitus) ICD Codes: E11.9 - Type 2 diabetes mellitus without complications Status: Acute (4) Stage 3 chronic kidney disease ICD Codes: N18.3 - Chronic kidney disease, stage 3 (moderate) Status: Acute (5) Hypertension ICD Codes: I10 - Essential (primary) hypertension Status: Acute (6) Hyperlipidemia ICD Codes: E78.5 - Hyperlipidemia, unspecified Status: Acute (7) Obesity ICD Codes: E66.9 - Obesity, unspecified Status: Acute Assessment and Plan Cath with mild nonobstructive CAD and preserved LV systolic fx. Groin stable. Continue risk factor modification. Will schedule outpatient f/u with me after discharge. [place] MD Jul 24, 2017 12:30
--- NOTE | 2017-07-24 14:17 | HHI.PR ---
Subjective Remarks in no acute distress. no sob. has some on and off pain to the right arm. blood sugar trend noted. d/w the RN. Objective Vitals Vital Signs Date Time Temp Pulse Resp B/P (MAP) Pulse Ox O2 Delivery O2 Flow Rate FiO2 07/24/17 12:00 52 07/24/17 12:00 98.0 52 20 138/64 (88) 95 07/24/17 10:30 97 07/24/17 10:00 64 07/24/17 09:36 16 07/24/17 09:00 65 07/24/17 08:00 97.8 64 16 167/72 (103) 95 07/24/17 08:00 64 07/24/17 06:08 51 07/24/17 05:51 55 07/24/17 04:14 97.9 65 16 156/68 (97) 97 07/24/17 04:14 59 07/24/17 03:25 57 07/24/17 02:22 57 07/24/17 01:01 67 07/24/17 00:20 98.1 70 18 144/56 (85) 93 07/24/17 00:15 68 07/23/17 23:00 66 07/23/17 22:15 70 07/23/17 21:00 62 07/23/17 20:39 97.8 66 16 152/67 (95) 94 07/23/17 19:20 65 07/23/17 18:59 96 Room Air I/O 07/23/17 07/23/17 07/23/17 07/24/17 07/24/17 07/24/17 07:00 15:00 23:00 07:00 15:00 23:00 Intake Total 0 ml 0 ml 720 ml Output Total 300 ml Balance 0 ml 0 ml 420 ml Intake Oral 0 ml 0 ml 720 ml Output Urine Total 300 ml # Voids 2 2 2 # Bowel Movements 0 0 Result Diagram: 07/22/17 1010 07/24/17 0451 Imaging Last Impressions Myocardial Perfusion Scan Nuc Med 07/23/17 0600 Signed Impressions: Service Date/Time: Sunday, July 23, 2017 11:08 - CONCLUSION: Stress induced ischemia with redistribution anterior lateral wall involving a large segment of myocardium however wall motion remains normal. RISK CATEGORY: Low (<1%% Annual Mortality Rate) Martin Buck MD FACR Chest X-Ray 07/22/17 0959 Signed Impressions: Service Date/Time: Saturday, July 22, 2017 10:17 - CONCLUSION: Grossly stable chest appearance Jarrod Sen MD Objective Remarks GENERAL: This is a well-nourished, well-developed patient, in no apparent distress. CARDIOVASCULAR: Regular rate and regular rhythm without murmurs, gallops, or rubs. RESPIRATORY: Clear to auscultation. Breath sounds equal bilaterally. No wheezes , rales, or rhonchi. GASTROINTESTINAL: Abdomen soft, non-tender, nondistended. Normal, active bowel sounds MUSCULOSKELETAL: Extremities without clubbing, cyanosis, or edema. NEURO: Alert & Oriented x4 to person, place, time, situation. Moves all ext x4 Procedures cardiac cath Medications and IVs Current Medications Aspirin (Aspirin Chew) 162 mg ONCE ONCE PO Last administered on 07/22/17 10: 15; Start 07/22/17 at 10:00; Stop 07/22/17 at 10:01; Status DC Sodium Chloride (NS Flush) 2 ml UNSCH PRN IVF FLUSH AFTER USING IV ACCESS Last administered on 07/22/17 10:56; Start 07/22/17 at 10:00; Stop 07/22/17 at 12:43 ; Status DC Morphine Sulfate (Morphine Inj) 4 mg ONCE ONCE IV PUSH ; Start 07/22/17 at 10: 00; Stop 07/22/17 at 10:52; Status DC Morphine Sulfate (Morphine Inj) 4 mg ONCE ONCE IV PUSH Last administered on 10:57; Start 07/22/17 at 11:00; Stop 07/22/17 at 11:01; Status DC Sodium Chloride (NS Flush) 2 ml UNSCH PRN IV FLUSH FLUSH AFTER USING IV ACCESS ; Start 07/22/17 at 12:30 Sodium Chloride (NS Flush) 2 ml BID IV FLUSH Last administered on 07/24/17 08: 46; Start 07/22/17 at 21:00 Morphine Sulfate (Morphine Inj) 2 mg Q4H PRN IV PAIN 8-10 Last administered on 07/23/17 17:07; Start 07/22/17 at 13:00 Ondansetron HCl (Zofran Inj) 4 mg Q6H PRN IV PUSH NAUSEA; Start 07/22/17 at 12: 30 Nitroglycerin (Nitrostat Sl) 0.4 mg Q5M PRN SL CHEST PAIN; Start 07/22/17 at 12 :30 Aspirin (Aspirin) 325 mg DAILY PO Last administered on 07/24/17 08:46; Start 07/23/17 at 09:00 Enoxaparin Sodium (Lovenox Inj) 40 mg Q24H SQ Last administered on 07/22/17 13 :05; Start 07/22/17 at 13:00; Stop 07/22/17 at 13:31; Status DC Dextrose (D50w (Vial) Inj) 50 ml UNSCH PRN IV PUSH HYPOGLYCEMIA-SEE COMMENTS; Start 07/22/17 at 12:30 Glucagon (Glucagon Inj) 1 mg UNSCH PRN OTHER HYPOGLYCEMIA-SEE COMMENTS; Start 07/22/17 at 12:30 Insulin Aspart (NovoLOG SUPPLEMENTAL SCALE) 1 ACHS SLIDING SCALE SQ Last administered on 07/24/17 12:21; Start 07/22/17 at 17:00 Atorvastatin Calcium (Lipitor) 20 mg DAILY PO Last administered on 07/24/17 08 :45; Start 07/23/17 at 09:00 Citalopram Hydrobromide (CeleXA) 20 mg DAILY PO Last administered on 07/24/17 08:46; Start 07/23/17 at 09:00 Nifedipine (Procardia Xl) 30 mg DAILY PO Last administered on 07/24/17 08:46; Start 07/23/17 at 09:00 Rivaroxaban (Xarelto) 10 mg DAILY PO Last administered on 07/24/17 08:45; Start 07/23/17 at 09:00 Acetaminophen/ Hydrocodone Bitart ([place] 5-325 Mg) 1 tab Q6H PRN PO musculoskeletal pain Last administered on 07/24/17 13:26; Start 07/22/17 at 13: 30 Rivaroxaban (Xarelto) 10 mg DAILY PO ; Start 07/23/17 at 09:00; Status Cancel Influenza Virus Vaccine (Flu (Quadrivalent) Vaccine Inj) 0.5 ml ONCE ONCE IM Last administered on 07/23/17 08:42; Start 07/23/17 at 10:00; Stop 07/23/17 at 10:05; Status DC Regadenoson (Lexiscan Inj) 0.4 mg STK-MED ONCE IV Last administered on 11:21; Start 07/23/17 at 11:21; Stop 07/23/17 at 11:22; Status DC Metoprolol Tartrate (Lopressor) 12.5 mg Q12HR PO Last administered on 08:46; Start 07/23/17 at 14:00 Miscellaneous (Pill Splitter) 1 ea UNSCH PRN OTHER SEE LABEL COMMENTS; Start 07/23/17 at 14:15 Methylprednisolone Sodium Succinate (SoluMEDROL INJ) 125 mg ONCE ONCE IV PUSH Last administered on 07/23/17 14:37; Start 07/23/17 at 14:15; Stop 07/23/17 at 14:32; Status DC Famotidine (Pepcid Inj) 20 mg ONCE ONCE IV PUSH Last administered on 14:38; Start 07/23/17 at 14:15; Stop 07/23/17 at 14:32; Status DC Sodium Chloride 1,000 ml @ 84 mls/hr [id number] IV ; Start 07/23/17 at 15:45 Midazolam HCl (Versed Inj) 2 mg STK-MED ONCE .ROUTE Last administered on 17:36; Start 07/23/17 at 18:02; Stop 07/23/17 at 18:03; Status DC Sodium Chloride 500 ml @ 100 mls/hr Q5H IV ; Start 07/23/17 at 18:27; Stop 07/23/17 at 22:26; Status DC Iohexol (OMNIPAQUE 350 INJ (Assistant Cook)) 100 ml STK-MED ONCE OTHER ; Start at 17:22; Stop 07/24/17 at 11:24; Status DC A/P Problem List: (1) Obesity ICD Code: E66.9 - Obesity, unspecified Status: Acute (2) Stage 3 chronic kidney disease ICD Code: N18.3 - Chronic kidney disease, stage 3 (moderate) Status: Acute (3) Chest pain, atypical ICD Code: R07.89 - Other chest pain Status: Acute (4) DM (diabetes mellitus) ICD Code: E11.9 - Type 2 diabetes mellitus without complications Status: Acute (5) Hypertension ICD Code: I10 - Essential (primary) hypertension Status: Acute (6) Hyperlipidemia ICD Code: E78.5 - Hyperlipidemia, unspecified Status: Acute Assessment and Plan A/P -Chest pain s/p cardiac cath with nonobstructive CAD- continue with medical treatment. cleared by cardiology for discharge. -Hypertension--ontinue home meds -Chronic kidney disease stage III-stable. -Type 2 diabetes. blood sugar not controlled- accu-check in 400 range- resume long acting insulin- Continue on sliding scale insulin -Uterine cancer status post hysterectomy several months ago and apparently she has an abnormal PET scan with uptake in the stomach -Follow with primary care and oncology as outpatient. -History of DVT on Xarelto - dose recently decreased by her primary care physician continue Xarelto 10 mg daily. -morbid obesity. BMI 51.8. Recommend weight loss as outpatient. -Hyperlipidemia-continue statin Discharge Planning dc home tomorrow if blood sugar better controlled. d/w the patient and RN. [facility] upon discharge. Lilia Vides MD Jul 24, 2017 14:17
[2017-07-24] MEDS ORDERED: METO25TA3 PO (14:20)
[2017-07-24] MEDS ORDERED: ASPI81TA23 PO (14:20)
[2017-07-24] MEDS ORDERED: INSULIN DETEMIR 100 UNITS/ML VIAL SQ SCH (21:00)
[2017-07-24] MEDS: MORPHINE SULFATE 2 MG/ML INJ IV PRN (22:46)
[2017-07-25] VITALS (15 sets, daily range): BP systolic 127–138; BP diastolic 60–99; PULSE 48–63; RESP 16; TEMP 97.8–98.1; O2SAT 95–97
[2017-07-25] MEDS: MORPHINE SULFATE 2 MG/ML INJ IV PRN (04:58)
[2017-07-25 07:06] LABS: BICARBONATE 26.6 MEQ/L (21.0-32.0); POTASSIUM 4.1 MEQ/L (3.5-5.1)
[2017-07-25] MEDS: SODIUM CHLORIDE 0.9% FLUSH 10 ML FLUSH IV FLUSH SCH (09:00)
[2017-07-25] MEDS: INSULIN ASPART SUPPLEMENTAL SCALE SQ SCH ×2 (09:16→12:04)
[2017-07-25] MEDS: ASPIRIN 325 MG TAB PO SCH (09:17)
[2017-07-25] MEDS: CITALOPRAM HYDROBROMIDE 20 MG TAB PO SCH (09:17)
[2017-07-25] MEDS: RIVAROXABAN 10 MG TAB PO SCH (09:17)
[2017-07-25] MEDS: NIFEdipine 30 MG SUSTAINED RELEASE TAB PO SCH (09:17)
[2017-07-25] MEDS: ATORVASTATIN 20 MG TAB PO SCH (09:17)
[2017-07-25] MEDS: METOPROLOL TARTRATE 25 MG TAB PO SCH (09:17)
[2017-07-25] MEDS: ACETAMINOPHEN/HYDROcodone 325 MG/5 MG TAB PO PRN (09:21)
--- NOTE | 2017-07-25 11:41 | HHI.PR ---
Subjective Remarks in no acute distress. blood sugar has improved. wants to go home. d/w the RN and no acute issues over night. Objective Vitals Vital Signs Date Time Temp Pulse Resp B/P (MAP) Pulse Ox O2 Delivery O2 Flow Rate FiO2 07/25/17 10:00 51 07/25/17 09:00 52 07/25/17 08:00 98.0 56 16 138/62 (87) 95 07/25/17 08:00 54 07/25/17 07:17 97 21 07/25/17 07:00 51 07/25/17 06:00 54 07/25/17 05:00 98.1 54 16 130/60 (83) 95 07/25/17 05:00 50 07/25/17 04:00 50 07/25/17 03:00 50 07/25/17 02:00 50 07/25/17 01:00 56 07/25/17 00:00 56 07/24/17 23:00 97.9 54 16 134/62 (86) 95 07/24/17 23:00 65 07/24/17 22:00 60 07/24/17 21:00 60 07/24/17 20:30 21 07/24/17 20:00 99.2 61 16 130/69 (89) 97 07/24/17 20:00 62 07/24/17 19:00 57 07/24/17 18:00 84 07/24/17 17:00 68 07/24/17 16:11 98.4 58 20 133/65 (87) 96 07/24/17 16:11 58 07/24/17 16:00 68 07/24/17 15:00 78 07/24/17 14:00 58 07/24/17 13:00 66 07/24/17 12:00 52 07/24/17 12:00 98.0 52 20 138/64 (88) 95 I/O 07/24/17 07/24/17 07/24/17 07/25/17 07/25/17 07/25/17 07:00 15:00 23:00 07:00 15:00 23:00 Intake Total 720 ml 900 ml 680 ml Output Total 300 ml 1000 ml 200 ml Balance 420 ml -100 ml 480 ml Intake Oral 720 ml 900 ml 680 ml Output Urine Total 300 ml 1000 ml 200 ml # Voids 2 3 # Bowel Movements 0 0 0 Result Diagram: 07/22/17 1010 07/25/17 0442 Imaging Last Impressions Myocardial Perfusion Scan Nuc Med 07/23/17 0600 Signed Impressions: Service Date/Time: Sunday, July 23, 2017 11:08 - CONCLUSION: Stress induced ischemia with redistribution anterior lateral wall involving a large segment of myocardium however wall motion remains normal. RISK CATEGORY: Low (<1%% Annual Mortality Rate) Martin Buck MD FACR Chest X-Ray 07/22/17 0959 Signed Impressions: Service Date/Time: Saturday, July 22, 2017 10:17 - CONCLUSION: Grossly stable chest appearance Jarrod Sen MD Objective Remarks GENERAL: This is a well-nourished, well-developed patient, in no apparent distress. CARDIOVASCULAR: Regular rate and regular rhythm without murmurs, gallops, or rubs. RESPIRATORY: Clear to auscultation. Breath sounds equal bilaterally. No wheezes , rales, or rhonchi. GASTROINTESTINAL: Abdomen soft, non-tender, nondistended. Normal, active bowel sounds MUSCULOSKELETAL: Extremities without clubbing, cyanosis, or edema. NEURO: Alert & Oriented x4 to person, place, time, situation. Moves all ext x4 Procedures cardiac cath Medications and IVs Current Medications Aspirin (Aspirin Chew) 162 mg ONCE ONCE PO Last administered on 07/22/17 10: 15; Start 07/22/17 at 10:00; Stop 07/22/17 at 10:01; Status DC Sodium Chloride (NS Flush) 2 ml UNSCH PRN IVF FLUSH AFTER USING IV ACCESS Last administered on 07/22/17 10:56; Start 07/22/17 at 10:00; Stop 07/22/17 at 12:43 ; Status DC Morphine Sulfate (Morphine Inj) 4 mg ONCE ONCE IV PUSH ; Start 07/22/17 at 10: 00; Stop 07/22/17 at 10:52; Status DC Morphine Sulfate (Morphine Inj) 4 mg ONCE ONCE IV PUSH Last administered on 10:57; Start 07/22/17 at 11:00; Stop 07/22/17 at 11:01; Status DC Sodium Chloride (NS Flush) 2 ml UNSCH PRN IV FLUSH FLUSH AFTER USING IV ACCESS ; Start 07/22/17 at 12:30 Sodium Chloride (NS Flush) 2 ml BID IV FLUSH Last administered on 07/25/17 09 :00; Start 07/22/17 at 21:00 Morphine Sulfate (Morphine Inj) 2 mg Q4H PRN IV PAIN 8-10 Last administered on 07/25/17 04:58; Start 07/22/17 at 13:00 Ondansetron HCl (Zofran Inj) 4 mg Q6H PRN IV PUSH NAUSEA; Start 07/22/17 at 12: 30 Nitroglycerin (Nitrostat Sl) 0.4 mg Q5M PRN SL CHEST PAIN; Start 07/22/17 at 12 :30 Aspirin (Aspirin) 325 mg DAILY PO Last administered on 07/25/17 09:17; Start 07/23/17 at 09:00 Enoxaparin Sodium (Lovenox Inj) 40 mg Q24H SQ Last administered on 07/22/17 13 :05; Start 07/22/17 at 13:00; Stop 07/22/17 at 13:31; Status DC Dextrose (D50w (Vial) Inj) 50 ml UNSCH PRN IV PUSH HYPOGLYCEMIA-SEE COMMENTS; Start 07/22/17 at 12:30 Glucagon (Glucagon Inj) 1 mg UNSCH PRN OTHER HYPOGLYCEMIA-SEE COMMENTS; Start 07/22/17 at 12:30 Insulin Aspart (NovoLOG SUPPLEMENTAL SCALE) 1 ACHS SLIDING SCALE SQ Last administered on 07/25/17 09:16; Start 07/22/17 at 17:00 Atorvastatin Calcium (Lipitor) 20 mg DAILY PO Last administered on 07/25/17 09:17; Start 07/23/17 at 09:00 Citalopram Hydrobromide (CeleXA) 20 mg DAILY PO Last administered on 09:17; Start 07/23/17 at 09:00 Nifedipine (Procardia Xl) 30 mg DAILY PO Last administered on 07/25/17 09:17 ; Start 07/23/17 at 09:00 Rivaroxaban (Xarelto) 10 mg DAILY PO Last administered on 07/25/17 09:17; Start 07/23/17 at 09:00 Acetaminophen/ Hydrocodone Bitart ([place] 5-325 Mg) 1 tab Q6H PRN PO musculoskeletal pain Last administered on 07/25/17 09:21; Start 07/22/17 at 13 :30 Rivaroxaban (Xarelto) 10 mg DAILY PO ; Start 07/23/17 at 09:00; Status Cancel Influenza Virus Vaccine (Flu (Quadrivalent) Vaccine Inj) 0.5 ml ONCE ONCE IM Last administered on 07/23/17 08:42; Start 07/23/17 at 10:00; Stop 07/23/17 at 10:05; Status DC Regadenoson (Lexiscan Inj) 0.4 mg STK-MED ONCE IV Last administered on 11:21; Start 07/23/17 at 11:21; Stop 07/23/17 at 11:22; Status DC Metoprolol Tartrate (Lopressor) 12.5 mg Q12HR PO Last administered on 09:17; Start 07/23/17 at 14:00 Miscellaneous (Pill Splitter) 1 ea UNSCH PRN OTHER SEE LABEL COMMENTS; Start 07/23/17 at 14:15 Methylprednisolone Sodium Succinate (SoluMEDROL INJ) 125 mg ONCE ONCE IV PUSH Last administered on 07/23/17 14:37; Start 07/23/17 at 14:15; Stop 07/23/17 at 14:32; Status DC Famotidine (Pepcid Inj) 20 mg ONCE ONCE IV PUSH Last administered on 14:38; Start 07/23/17 at 14:15; Stop 07/23/17 at 14:32; Status DC Sodium Chloride 1,000 ml @ 84 mls/hr [id number] IV ; Start 07/23/17 at 15:45 Midazolam HCl (Versed Inj) 2 mg STK-MED ONCE .ROUTE Last administered on 17:36; Start 07/23/17 at 18:02; Stop 07/23/17 at 18:03; Status DC Sodium Chloride 500 ml @ 100 mls/hr Q5H IV ; Start 07/23/17 at 18:27; Stop 07/23/17 at 22:26; Status DC Iohexol (OMNIPAQUE 350 INJ (Software Security Consultant)) 100 ml STK-MED ONCE OTHER ; Start at 17:22; Stop 07/24/17 at 11:24; Status DC Insulin Detemir (Levemir Inj) 32 units HS SQ Last administered on 07/24/17t 21: 54; Start 07/24/17 at 21:00 A/P Problem List: (1) Obesity ICD Code: E66.9 - Obesity, unspecified Status: Acute (2) Stage 3 chronic kidney disease ICD Code: N18.3 - Chronic kidney disease, stage 3 (moderate) Status: Acute (3) Chest pain, atypical ICD Code: R07.89 - Other chest pain Status: Acute (4) DM (diabetes mellitus) ICD Code: E11.9 - Type 2 diabetes mellitus without complications Status: Acute (5) Hypertension ICD Code: I10 - Essential (primary) hypertension Status: Acute (6) Hyperlipidemia ICD Code: E78.5 - Hyperlipidemia, unspecified Status: Acute Assessment and Plan A/P -Chest pain s/p cardiac cath with nonobstructive CAD- continue with medical treatment. cleared by cardiology for discharge. -Hypertension--ontinue home meds -Chronic kidney disease stage III-stable. -Type 2 diabetes.overall better controlled- - resumed long acting insulin- Continue on sliding scale insulin -Uterine cancer status post hysterectomy several months ago and apparently she has an abnormal PET scan with uptake in the stomach -Follow with primary care and oncology as outpatient. -History of DVT on Xarelto - dose recently decreased by her primary care physician continue Xarelto 10 mg daily. -morbid obesity. BMI 51.8. Recommend weight loss as outpatient. -Hyperlipidemia-continue statin Discharge Planning dc home today. will have C. f/u; pcp and cardiology. see med list. d/w the patient and RN. Lilia Vides MD Jul 25, 2017 11:41
--- NOTE | 2017-07-25 11:41 | HHI.DS ---
Discharge Summary Admission Date Jul 22, 2017 at 12:19 Discharge Date: Jul 25, 2017 Admitting Diagnosis chest pain (1) Obesity ICD Code: E66.9 - Obesity, unspecified Diagnosis: Secondary Status: Acute (2) Stage 3 chronic kidney disease ICD Code: N18.3 - Chronic kidney disease, stage 3 (moderate) Diagnosis: Secondary Status: Acute (3) Chest pain, atypical ICD Code: R07.89 - Other chest pain Diagnosis: Principal Status: Acute (4) DM (diabetes mellitus) ICD Code: E11.9 - Type 2 diabetes mellitus without complications Diagnosis: Secondary Status: Acute (5) Hypertension ICD Code: I10 - Essential (primary) hypertension Diagnosis: Secondary Status: Acute (6) Hyperlipidemia ICD Code: E78.5 - Hyperlipidemia, unspecified Diagnosis: Secondary Status: Acute Procedures cardiac cath Brief History - From Admission This is a pleasant 66-year-old Afro[place] female with past medical history of hypertension, type 2 diabetes, uterine cancer status post hysterectomy several months ago with Dr. Cool who presented to the ER this morning after awakening with retrosternal chest pain. She states the pain woke her from sleep. It was sharp in nature. Associated with some shortness of breath but no nausea. She drinks some ice water which somewhat alleviated the symptoms. Symptoms much improved after receiving nitroglycerin in the ED. There was no radiation. No diaphoresis. Symptoms severe. In the emergency department troponin and EKG were negative for ischemia. ER physician has requested she be placed in the chest pain center. Patient states that she had a stress test many years ago. CBC/BMP: 07/22/17 1010 07/25/17 0442 Significant Findings Laboratory Tests Test 07/22/17 12:55 07/22/17 16:50 07/23/17 14:20 07/24/17 04:51 Troponin I LESS THAN 0.02 NG/ML LESS THAN 0.02 NG/ML Cholesterol Level 116 MG/DL (120-200) Blood Urea Nitrogen 22 MG/DL (7-18) Creatinine 1.52 MG/DL (0.50-1.00) Random Glucose 399 MG/DL (74-106) Calcium Level 8.4 MG/DL (8.5-10.1) Sodium Level 135 MEQ/L (136-145) Estimat Glomerular Filtration Rate 41 ML/MIN (>89) HDL Cholesterol 62.8 MG/DL (40.0-60.0) Test 07/25/17 04:42 Blood Urea Nitrogen 24 MG/DL (7-18) Creatinine 1.34 MG/DL (0.50-1.00) Random Glucose 199 MG/DL (74-106) Estimat Glomerular Filtration Rate 48 ML/MIN (>89) Imaging Last Impressions Myocardial Perfusion Scan Nuc Med 07/23/17 0600 Signed Impressions: Service Date/Time: Sunday, July 23, 2017 11:08 - CONCLUSION: Stress induced ischemia with redistribution anterior lateral wall involving a large segment of myocardium however wall motion remains normal. RISK CATEGORY: Low (<1%% Annual Mortality Rate) Martin Buck MD FACR Chest X-Ray 07/22/17 0959 Signed Impressions: Service Date/Time: Saturday, July 22, 2017 10:17 - CONCLUSION: Grossly stable chest appearance Jarrod Sen MD PE at Discharge GENERAL: This is a well-nourished, well-developed patient, in no apparent distress. CARDIOVASCULAR: Regular rate and regular rhythm without murmurs, gallops, or rubs. RESPIRATORY: Clear to auscultation. Breath sounds equal bilaterally. No wheezes , rales, or rhonchi. GASTROINTESTINAL: Abdomen soft, non-tender, nondistended. Normal, active bowel sounds MUSCULOSKELETAL: Extremities without clubbing, cyanosis, or edema. NEURO: Alert & Oriented x4 to person, place, time, situation. Moves all ext x4 Hospital Course -Chest pain s/p cardiac cath with nonobstructive CAD- continue with medical treatment. cleared by cardiology for discharge. -Hypertension--ontinue home meds -Chronic kidney disease stage III-stable. -Type 2 diabetes.overall better controlled- - resumed long acting insulin- Continue on sliding scale insulin -Uterine cancer status post hysterectomy several months ago and apparently she has an abnormal PET scan with uptake in the stomach -Follow with primary care and oncology as outpatient. -History of DVT on Xarelto - dose recently decreased by her primary care physician continue Xarelto 10 mg daily. -morbid obesity. BMI 51.8. Recommend weight loss as outpatient. -Hyperlipidemia-continue statin Pt Condition on Discharge: Fair Discharge Disposition: Disch w/ Home Health Serv Discharge Time: <= 30 minutes Discharge Instructions DIET: Follow Instructions for: Heart Healthy Diet, Diabetic Diet Activities you can perform: Regular-No Restrictions Follow up Referrals: Cardiology PCP Follow-up SNF/[facility]/ with [facility] New Medications: Aspirin DR (Aspirin EC) 81 Mg Tabdr 81 MG PO DAILY for cad for 30 Days, #30 TAB 0 Refills Metoprolol Tartrate (Metoprolol Tartrate) 25 Mg Tab 12.5 MG PO DAILY for hypertension for 30 Days, #15 TAB 0 Refills Continued Medications: Allopurinol (Allopurinol) 300 Mg Tab 300 MG PO DAILY for Gout, #30 TAB 0 Refills Atorvastatin (Atorvastatin) 20 Mg Tab 20 MG PO DAILY for Cholesterol Management, #30 TAB 0 Refills Citalopram (Citalopram) 20 Mg Tab 20 MG PO DAILY for Control Depression, #30 TAB 0 Refills Furosemide (Lasix) 40 Mg Tab 40 MG PO DAILY, #30 TAB 0 Refills Gabapentin (Gabapentin) 300 Mg Cap 300 MG PO BID, #60 CAP 0 Refills Hydrocodone-Acetaminophen (Lortab) 10-325 Mg Tab 1 TAB PO Q4H PRN for PAIN, TAB 0 Refills Insulin Glargine Inj (Lantus Inj) 1,000 Unit/10 Ml Vial 32 UNITS SQ HS for Blood Sugar Management, VIAL 0 Refills Insulin Lispro (Human) Inj (Humalog Inj) 1,000 Unit/10 Ml Vial 2-12 UNITS SQ ACHS for Blood Sugar Management, #1 VIAL 0 Refills Max dose at bedtime:( )units; sugars < 70,(0)units; sugars 150-199,(2)units; sugars 200-249,(4)units; sugars 250-299,(7)units; sugars 300-349,(10)units; sugars more than 349,(12)units. Nateglinide (Starlix) 120 Mg Tab 120 MG PO TIDAC for Blood Sugar Management, #90 TAB 0 Refills Nifedipine ER 24 HR (Nifedipine ER 24 HR) 30 Mg Tab 30 MG PO DAILY for Blood Pressure Management, #30 TAB 0 Refills Oxycodone (Oxycodone) 15 Mg Tab 15 MG PO Q4H PRN for PAIN, #30 TAB 0 Refills TAKE EVERY 4-6HR PRN FOR PAIN Rivaroxaban (Xarelto) 10 Mg Tab 10 MG PO DAILY for Blood Clot Prevention, TAB 0 Refills Discontinued Medications: Metoprolol Tartrate (Metoprolol Tartrate) 50 Mg Tab 25 MG PO BID, #30 TAB 0 Refills Lilia Vides MD Jul 25, 2017 11:41
[2017-07-25] MEDS ORDERED: METO25TA3 PO (12:00)
--- NOTE | 2017-07-25 12:57 | HHI.FF ---
Face to Face Verification Diagnosis: (1) DM (diabetes mellitus) (2) Chest pain, atypical Physical Therapy Order: Evaluate and Treat Home Health Nursing Order: Medical education Signs/symptoms of disease process Diabetic education Nursing assessment with vital signs I have seen patient Job Mckeon on 07/25/17. My clinical findings support the need for the requested home health care services because: Ltd mobility - disease progression I certify that my clinical findings support that this patient is homebound because: Unsteady gait/balance Lilia Vides MD Jul 25, 2017 12:57
== END 2017-07-25 14:10 | disposition home health service (06) ==
LOC: PHED 09:42 → PHEDA 12:19 → PH3A 13:50 → HDIC 07-23 16:59 → HCPC 07-23 20:05
PROVIDERS: ADMIT Internal Medicine; ATTEND Internal Medicine
DX: R07.89 Other chest pain (principal); I44.0 Atrioventricular block, first degree; R94.39 Abnormal result of other cardiovascular function study; R00.1 Bradycardia, unspecified; R94.31 Abnormal electrocardiogram [ECG] [EKG]; R11.0 Nausea; R06.02 Shortness of breath; I25.110 Atherosclerotic heart disease of native coronary artery with unstable angina pectoris; I12.9 Hypertensive chronic kidney disease with stage 1 through stage 4 chronic kidney disease, or unspecified chronic kidney disease; E11.22 Type 2 diabetes mellitus with diabetic chronic kidney disease; N18.3 Chronic kidney disease, stage 3 (moderate); E78.00 Pure hypercholesterolemia, unspecified; E03.9 Hypothyroidism, unspecified; J44.9 Chronic obstructive pulmonary disease, unspecified; Z23 Encounter for immunization; G47.30 Sleep apnea, unspecified; F41.9 Anxiety disorder, unspecified; F32.9 Major depressive disorder, single episode, unspecified; H40.9 Unspecified glaucoma; M19.90 Unspecified osteoarthritis, unspecified site; E66.01 Morbid (severe) obesity due to excess calories; Z68.43 Body mass index [BMI] 50.0-59.9, adult; Z79.899 Other long term (current) drug therapy; Z79.01 Long term (current) use of anticoagulants; Z85.42 Personal history of malignant neoplasm of other parts of uterus; Z90.710 Acquired absence of both cervix and uterus; Z86.718 Personal history of other venous thrombosis and embolism
CPT/HCPCS: 71010; 78452; 80048; 80053; 80061; 82550; 82948; 83690; 84484; 85025; 85379; 85610; 85730; 93005; 93017; 93458; 96372; 96374; 96375; 96376; 97110; 97162; 97530; 99285; A9502; C1760; C1769; C1893; G0008; G0269; G0378; G8987; G8988; J1650; J1815; J2250; J2270; J2785; J2930; Q2038; 90471; 90686; Q9967

== ENCOUNTER 2017-09-22 09:24 | Emergency (ER) | payer MEDICARE, MEDICAID ==
[~2017-09-22 09:24] MED LIST changes: +ASPI81TA23 PO; +METO25TA3 PO; -METO50TA PO
[2017-09-22 09:35] VITALS: BP 138/66; PULSE 66; RESP 20; TEMP 99.4; O2SAT 95
[2017-09-22] MEDS ORDERED: LISI40TA PO (09:46)
--- NOTE | 2017-09-22 09:46 | PD ---
HPI Chief Complaint: Chest Pain Time Seen by Provider: 09:33 Travel History International Travel<30 days: No Contact w/Intl Traveler<30days: No Traveled to known affect area: No History of Present Illness HPI This 67-year-old female says she has not been feeling well. She's had chills and fever for several days. She's had a sore throat. She's been coughing up some phlegm. She recently had a hysterectomy. He was admitted to the hospital in July for chest pain and had a catheterization at that time. Catheterization showed mild nonobstructive coronary artery disease PFSH Past Medical History Hx Anticoagulant Therapy: Yes Arthritis: Yes Asthma: Yes Anxiety: Yes Depression: Yes Heart Rhythm Problems: No Cancer: No Cardiovascular Problems: Yes High Cholesterol: Yes Chemotherapy: No Chest Pain: Yes Congestive Heart Failure: No COPD: Yes Diabetes: Yes Patient Takes Glucophage: No Diminished Hearing: No Deep Vein Thrombosis: Yes Endocrine: Yes Gastrointestinal Disorders: Yes (CONSTIPATION) Glaucoma: Yes Gout: Yes Genitourinary: Yes Hepatitis: No Hiatal Hernia: No Hypertension: Yes Immune Disorder: No Implanted Vascular Access Dvce: Yes Medical other: No Musculoskeletal: Yes Neurologic: No Psychiatric: Yes (DEPRESSION) Reproductive: Yes (FIBROIDS) Respiratory: Yes (SHORTNESS OF BREATH ON EXERTION, COPD, SLEEP APNEA NO CPAP) Radiation Therapy: No Sleep Apnea: Yes Thyroid Disease: Yes ?: Not Menopausal: Yes Tubal Ligation: Yes Past Surgical History Abdominal Surgery: No AICD: No Cardiac Surgery: No Ear Surgery: No Endocrine Surgery: No Eye Surgery: Yes (BILATERAL CATARACTS) Genitourinary Surgery: No Gynecologic Surgery: Yes (FIBROID ) Hysterectomy: Yes Joint Replacement: Yes (RIGHT KNEE) Neurologic Surgery: No Oral Surgery: No Pacemaker: No Thoracic Surgery: No Other Surgery: Yes Social History Alcohol Use: Yes (RARELY) Tobacco Use: No Substance Use: No Allergies-Medications (Allergen,Severity, Reaction): Coded Allergies: Iodinated Contrast- Oral and IV Dye (Verified Allergy, Unknown, 09/22/17) Reported Meds & Prescriptions Reported Meds & Active Scripts Active Metoprolol Tartrate 25 Mg Tab 12.5 Mg PO DAILY 30 Days Aspirin EC (Aspirin) 81 Mg Tabdr 81 Mg PO DAILY 30 Days Reported Lisinopril 40 Mg Tab 40 Mg PO DAILY Oxycodone (Oxycodone HCl) 15 Mg Tab 15 Mg PO Q4H PRN TAKE EVERY 4-6HR PRN FOR PAIN Citalopram (Citalopram Hydrobromide) 20 Mg Tab 20 Mg PO DAILY Humalog Inj (Insulin Human Lispro) 1,000 Unit/10 Ml Vial 2-12 Units SQ ACHS Max dose at bedtime:( )units; sugars < 70,(0)units; sugars 150-199,(2)units; sugars 200-249,(4)units; sugars 250-299,(7)units; sugars 300-349,(10)units; sugars more than 349,(12)units. Starlix (Nateglinide) 120 Mg Tab 120 Mg PO TIDAC Lantus Inj (Insulin Glargine) 1,000 Unit/10 Ml Vial 32 Units SQ HS Xarelto (Rivaroxaban) 10 Mg Tab 10 Mg PO DAILY Allopurinol 300 Mg Tab 300 Mg PO DAILY Atorvastatin (Atorvastatin Calcium) 20 Mg Tab 20 Mg PO DAILY Lasix (Furosemide) 40 Mg Tab 40 Mg PO DAILY Gabapentin 300 Mg Cap 300 Mg PO BID Review of Systems General / Constitutional: Positive: Fever, Chills Eyes: No: Diploplia, Blurred Vision HENT: No: Headaches, Vertigo Cardiovascular: Positive: Chest Pain or Discomfort Respiratory: Positive: Cough, No: Shortness of Breath Gastrointestinal: Positive: Nausea Genitourinary: No: Urgency, Frequency Skin: No Rash Neurologic: Positive: Weakness Endocrine: No: Heat Intolerance Hematologic/Lymphatic: No: Easy Bruising Physical Exam Narrative GENERAL: Well-developed female SKIN: Focused skin assessment warm/dry. HEAD: Atraumatic. Normocephalic. EYES: Pupils equal and round. No scleral icterus. No injection or drainage. ENT: No nasal bleeding or discharge. Mucous membranes pink and moist. NECK: Trachea midline. No JVD. CARDIOVASCULAR: Regular rate and rhythm. No murmur appreciated. RESPIRATORY: No accessory muscle use. Clear to auscultation. Breath sounds equal bilaterally. GASTROINTESTINAL: Abdomen soft, non-tender, nondistended. Hepatic and splenic margins not palpable. MUSCULOSKELETAL: No obvious deformities. No clubbing. No cyanosis. No edema. NEUROLOGICAL: Awake and alert. No obvious cranial nerve deficits. Motor grossly within normal limits. Normal speech. PSYCHIATRIC: Appropriate mood and affect; insight and judgment normal. Data Data Last Documented VS Vital Signs Date Time Temp Pulse Resp B/P (MAP) Pulse Ox O2 Delivery O2 Flow Rate FiO2 09/22/17 10:33 58 18 132/61 (84) 96 Room Air 09/22/17 09:35 99.4 Orders Orders Electrocardiogram (09/22/17 09:41) Complete Blood Count With Diff (09/22/17 09:41) Comprehensive Metabolic Panel (09/22/17 09:41) Troponin I (09/22/17 09:41) Influenzae A/B Antigen (09/22/17 09:41) Chest, Single Ap (09/22/17 09:41) Acetamin-Hydrocod 325-5 Mg ([place] 5-325 (09/22/17 10:45) Labs Laboratory Tests Test 09/22/17 09:43 White Blood Count 9.6 TH/MM3 Red Blood Count 4.67 MIL/MM3 Hemoglobin 11.7 GM/DL Hematocrit 37.2 % Mean Corpuscular Volume 79.7 FL Mean Corpuscular Hemoglobin 25.2 PG Mean Corpuscular Hemoglobin Concent 31.6 % Red Cell Distribution Width 15.4 % Platelet Count 180 TH/MM3 Mean Platelet Volume 10.9 FL Neutrophils (%) (Auto) 69.8 % Lymphocytes (%) (Auto) 16.1 % Monocytes (%) (Auto) 9.6 % Eosinophils (%) (Auto) 4.3 % Basophils (%) (Auto) 0.2 % Neutrophils # (Auto) 6.8 TH/MM3 Lymphocytes # (Auto) 1.5 TH/MM3 Monocytes # (Auto) 0.9 TH/MM3 Eosinophils # (Auto) 0.4 TH/MM3 Basophils # (Auto) 0.0 TH/MM3 CBC Comment DIFF FINAL Differential Comment Blood Urea Nitrogen 20 MG/DL Creatinine 1.40 MG/DL Random Glucose 99 MG/DL Total Protein 8.1 GM/DL Albumin 3.2 GM/DL Calcium Level 8.7 MG/DL Alkaline Phosphatase 125 U/L Aspartate Amino Transf (AST/SGOT) 13 U/L Alanine Aminotransferase (ALT/SGPT) 22 U/L Total Bilirubin 0.8 MG/DL Sodium Level 138 MEQ/L Potassium Level 4.0 MEQ/L Chloride Level 107 MEQ/L Carbon Dioxide Level 25.7 MEQ/L Anion Gap 5 MEQ/L Estimat Glomerular Filtration Rate 45 ML/MIN Troponin I LESS THAN 0.02 NG/ML MDM Medical Decision Making Medical Screen Exam Complete: Yes Emergency Medical Condition: Yes Medical Record Reviewed: Yes Differential Diagnosis Differential includes influenza, viral syndrome, upper respiratory infection, pneumonia Narrative Course Chest x-rays read as negative. His hemoglobin is 11 7 white count of 9.6. EKG is unchanged from previous tracings. Troponin is less than 0.02. This appears to be a viral illness, possibly influenza though the test is negative now. She is stable for discharge Diagnosis Primary Impression: Viral upper respiratory infection Additional Instructions: Rest, force fluids, take Tylenol for fever Disposition: DISCHARGE HOME Condition: Stable Darren Hilliard MD Sep 22, 2017 09:46
[2017-09-22 09:54] LABS: AUTOMATED NEUTROPHIL # 6.8 TH/MM3 (1.8-7.7); BASOPHIL % 0.2 % (0.0-2.0); EOSINOPHIL # 0.4 TH/MM3 (0-0.4); EOSINOPHIL % 4.3 % (0.0-4.0); HEMATOCRIT 37.2 % (35.0-46.0); HEMOGLOBIN 11.7 GM/DL (11.6-15.3); LYMPH % 16.1 % (9.0-44.0); LYMPHOCYTE # 1.5 TH/MM3 (1.0-4.8); MEAN CELL VOLUME 79.7 FL (80.0-100.0); MEAN CORPUSCULAR HEMOGLOBIN 25.2 PG (27.0-34.0); MEAN CORPUSCULAR HGB CONC 31.6 % (32.0-36.0); MEAN PLATELET VOLUME 10.9 FL (7.0-11.0); MONO % 9.6 % (0.0-8.0); MONOCYTE # 0.9 TH/MM3 (0-0.9); NEUT % 69.8 % (16.0-70.0); PLATELET COUNT 180 TH/MM3 (150-450); RED BLOOD COUNT 4.67 MIL/MM3 (4.00-5.30); RED CELL DISTRIBUTION WIDTH 15.4 % (11.6-17.2); WHITE BLOOD COUNT 9.6 TH/MM3 (4.0-11.0)
[2017-09-22 10:03] LABS: CHLORIDE 107 MEQ/L (98-107); SODIUM (NA) 138 MEQ/L (136-145)
[2017-09-22 10:06] LABS: CALCIUM 8.7 MG/DL (8.5-10.1)
[2017-09-22 10:07] LABS: ALBUMIN 3.2 GM/DL (3.4-5.0); BICARBONATE 25.7 MEQ/L (21.0-32.0); BLOOD UREA NITROGEN 20 MG/DL (7-18); GLUCOSE,RANDOM 99 MG/DL (74-106)
[2017-09-22 10:10] LABS: ALT (GPT) 22 U/L (10-53); AST (GOT) 13 U/L (15-37); GLOMERULAR FILTRATION RATE 45 ML/MIN (>89)
[2017-09-22 10:11] LABS: TOTAL BILIRUBIN ADULT 0.8 MG/DL (0.2-1.0); TOTAL PROTEIN 8.1 GM/DL (6.4-8.2)
[2017-09-22 10:13] LABS: ALKALINE PHOSPHATASE 125 U/L (45-117)
[2017-09-22 10:15] LABS: TROPONIN I LESS THAN 0.02 NG/ML (0.02-0.05)
[2017-09-22 10:33] VITALS: BP 132/61; PULSE 58; RESP 18; O2SAT 96
--- NOTE | 2017-09-22 10:39 | RADRPT ---
EXAM DATE/TIME: 09/22/2017 10:12 [facility] COMPARISON: CHEST SINGLE AP, July 22, 2017, 10:17. INDICATIONS : Cough, chest pain, short of breath. MEDICAL HISTORY : Hypertension. Diabetes mellitus type II. Chronic obstructive pulmonary disease. Asthma, DVT SURGICAL HISTORY : cardiac cath ENCOUNTER: Initial ACUITY: 3 days PAIN SCORE: 6/10 LOCATION: Bilateral chest FINDINGS: No new focal pleural or parenchymal opacities. Cardiomediastinal contours are within normal limits. B elizabeth thorax is intact. CONCLUSION: 1. No acute abnormality or significant interval change. Darryl Vanessa MD on September 22, 2017 at 10:36 Board Certified Radiologist. This report was verified electronically.
[2017-09-22] MEDS ORDERED: ACETAMINOPHEN/HYDROcodone 325 MG/5 MG TAB PO ONE (10:45)
--- NOTE | 2017-09-23 15:21 | EKG ---
Date Performed: 09/22/2017 Time Performed: 09:32:33 PTAGE: 67 years EKG: Sinus rhythm BORDERLINE LEFT AXIS DEVIATION MINIMAL VOLTAGE CRITERIA FOR LVH, CONSIDER NORMAL VARIANT BORDERLINE ECG PREVIOUS TRACING : 07/22/2017 16.26 Compared to prior tracing no significant change DOCTOR: Angel De La Garza Interpretating Date/Time 09/23/2017 15:20:44
[2017-09-29] MEDS ORDERED: XARE15TA PO (15:59)
[2017-09-29] MEDS ORDERED: SERT-132 PO (15:59)
[2017-09-29] MEDS ORDERED: HYDR-3583 PO (15:59)
[2017-09-29] MEDS ORDERED: METO25TA3 PO (15:59)
== END 2017-09-22 11:14 | disposition home or self-care (01) ==
LOC: PHED 09:24
DX: J06.9 Acute upper respiratory infection, unspecified (principal); J44.9 Chronic obstructive pulmonary disease, unspecified; I10 Essential (primary) hypertension; I25.10 Atherosclerotic heart disease of native coronary artery without angina pectoris; R94.31 Abnormal electrocardiogram [ECG] [EKG]; E11.9 Type 2 diabetes mellitus without complications; E78.00 Pure hypercholesterolemia, unspecified; F32.9 Major depressive disorder, single episode, unspecified; F41.9 Anxiety disorder, unspecified
CPT/HCPCS: 71045; 80053; 84484; 85025; 87804; 93005; 99285

== ENCOUNTER 2017-10-24 11:25 | Emergency (ER) | payer MEDICARE, MEDICAID ==
[~2017-10-24] VITALS: Ht 165.1 cm; Wt 138.0 kg
[~2017-10-24 11:25] MED LIST changes: -CITA20TA4 PO; -HYDR-3535 PO; +HYDR-3583 PO; +LISI40TA PO; -NIFE30TA61 PO; -OXYC15TA PO; +SERT-132 PO; -XARE10TA PO; +XARE15TA PO
[2017-10-24 11:36] VITALS: BP 188/66; PULSE 57; RESP 16; TEMP 99; O2SAT 98
[2017-10-24] MEDS ORDERED: ALBUAER3 INH (11:44)
[2017-10-24 11:45] VITALS: O2SAT 99
[2017-10-24] MEDS ORDERED: SODIUM CHLORIDE 0.9% FLUSH 10 ML FLUSH IVF PRN (11:45)
[2017-10-24 12:00] LABS: AUTOMATED NEUTROPHIL # 6.9 TH/MM3 (1.8-7.7); BASOPHIL % 0.4 % (0.0-2.0); EOSINOPHIL # 0.3 TH/MM3 (0-0.4); EOSINOPHIL % 3.1 % (0.0-4.0); HEMATOCRIT 35.2 % (35.0-46.0); HEMOGLOBIN 11.6 GM/DL (11.6-15.3); LYMPH % 22.9 % (9.0-44.0); LYMPHOCYTE # 2.3 TH/MM3 (1.0-4.8); MEAN CELL VOLUME 79.4 FL (80.0-100.0); MEAN CORPUSCULAR HEMOGLOBIN 26.3 PG (27.0-34.0); MEAN CORPUSCULAR HGB CONC 33.1 % (32.0-36.0); MEAN PLATELET VOLUME 11.2 FL (7.0-11.0); MONO % 4.9 % (0.0-8.0); MONOCYTE # 0.5 TH/MM3 (0-0.9); NEUT % 68.7 % (16.0-70.0); PLATELET COUNT 136 TH/MM3 (150-450); RED BLOOD COUNT 4.43 MIL/MM3 (4.00-5.30); RED CELL DISTRIBUTION WIDTH 15.6 % (11.6-17.2)
[2017-10-24 12:15] LABS: CHLORIDE 105 MEQ/L (98-107); SODIUM (NA) 138 MEQ/L (136-145)
[2017-10-24 12:19] LABS: CALCIUM 8.5 MG/DL (8.5-10.1)
[2017-10-24 12:20] LABS: ALBUMIN 3.1 GM/DL (3.4-5.0); BICARBONATE 27.5 MEQ/L (21.0-32.0); BLOOD UREA NITROGEN 19 MG/DL (7-18); GLUCOSE,RANDOM 131 MG/DL (74-106)
[2017-10-24 12:22] LABS: ALT (GPT) 25 U/L (10-53); AST (GOT) 12 U/L (15-37)
[2017-10-24 12:23] LABS: GLOMERULAR FILTRATION RATE 49 ML/MIN (>89)
[2017-10-24 12:24] LABS: INTERNATIONAL NORMALIZED RATIO 1.2 RATIO; PROTHROMBIN TIME - PATIENT 12.3 SEC (9.8-11.6); TOTAL BILIRUBIN ADULT 0.7 MG/DL (0.2-1.0); TOTAL PROTEIN 7.6 GM/DL (6.4-8.2)
[2017-10-24 12:25] LABS: ALKALINE PHOSPHATASE 129 U/L (45-117)
[2017-10-24 12:28] LABS: TROPONIN I LESS THAN 0.02 NG/ML (0.02-0.05)
[2017-10-24] MEDS ORDERED: ALUMINUM/MAGNESIUM/SIMETH 30 ML CUP PO ONE (12:45)
[2017-10-24] MEDS ORDERED: LIDOCAINE VISCOUS 2% SOLN 15 ML UDC PO ONE (12:45)
--- NOTE | 2017-10-24 13:09 | PD ---
HPI Chief Complaint: Chest Pain Time Seen by Provider: 11:34 Travel History International Travel<30 days: No Contact w/Intl Traveler<30days: No Traveled to known affect area: No History of Present Illness HPI Patient is a 67-year-old -Citizen Of [place] obese female presents emergency department with sharp epigastric and lower chest pain which she states is been present for the past 2 days and gradually worsening however she states the extended history of this is been present for over a year and waxing and waning. Patient was admitted in July 2017 with similar circumstances she failed a stress test and underwent cardiac catheterization which did not show any significant blockages that warranted intervention. In fact this is a near clean cardiac catheterization. Patient states that she is supposed to be following up with a leadership program intern for endoscopy however the last time she followed up she had still been taking her Xarelto and her procedure had to be canceled. She has not rescheduled this procedure since then. States her symptoms are worsened by food, context and associated signs and symptoms and duration as above. PFSH Past Medical History Hx Anticoagulant Therapy: Yes Arthritis: Yes Asthma: Yes Anxiety: Yes Depression: Yes Heart Rhythm Problems: No Cancer: No Cardiovascular Problems: Yes High Cholesterol: Yes Chemotherapy: No Chest Pain: Yes Congestive Heart Failure: No COPD: Yes Diabetes: Yes Patient Takes Glucophage: No Diminished Hearing: No Deep Vein Thrombosis: Yes Endocrine: Yes Gastrointestinal Disorders: Yes (CONSTIPATION) Glaucoma: Yes Gout: Yes Genitourinary: Yes Hepatitis: No Hiatal Hernia: No Hypertension: Yes Immune Disorder: No Implanted Vascular Access Dvce: Yes Musculoskeletal: Yes (RIGHT LEG SX, LEFT LEG PAIN WHEN WALKING, RIGHT ANKLE) Neurologic: No Psychiatric: Yes (DEPRESSION) Reproductive: Yes (FIBROIDS) Respiratory: Yes (SHORTNESS OF BREATH ON EXERTION, COPD, SLEEP APNEA NO CPAP) Radiation Therapy: No Sleep Apnea: Yes Thyroid Disease: Yes Tetanus Vaccination: Unknown ?: Not Menopausal: Yes Tubal Ligation: Yes Past Surgical History Abdominal Surgery: Yes (LAPAROSCOPY) AICD: No Body Medical Devices: RIGHT KNEE Cardiac Surgery: No Ear Surgery: No Endocrine Surgery: No Eye Surgery: Yes (BILATERAL CATARACTS) Genitourinary Surgery: No Gynecologic Surgery: Yes (FIBROID , TUBAL LIGATION, HYSTERECTOMY) Hysterectomy: Yes Joint Replacement: Yes (RIGHT KNEE) Neurologic Surgery: No Oral Surgery: No Pacemaker: No Thoracic Surgery: No Social History Alcohol Use: Yes (RARELY) Tobacco Use: No Substance Use: No Allergies-Medications (Allergen,Severity, Reaction): Coded Allergies: Iodinated Contrast- Oral and IV Dye (Verified Allergy, Unknown, 10/24/17) Reported Meds & Prescriptions Reported Meds & Active Scripts Active Protonix (Pantoprazole Sodium) 40 Mg Tab 40 Mg PO DAILY Aspirin EC (Aspirin) 81 Mg Tabdr 81 Mg PO DAILY 30 Days Reported Proair Hfa 8.5 GM Inh (Albuterol Sulfate) 90 Mcg/Act Aer 2 Puff INH Q6H PRN 108 mcg/actuation Hydrocodone-Acetaminophen 10-325 mg Tab 1 Tab PO Q6H PRN Sertraline (Sertraline HCl) 50 Mg Tab 50 Mg PO DAILY Xarelto (Rivaroxaban) 15 Mg Tab 15 Mg PO DAILY PATIENT DID NOT STOP XARELTO FOR PROCEDURE Metoprolol Tartrate 25 Mg Tab 25 Mg PO DAILY Lisinopril 40 Mg Tab 40 Mg PO DAILY Humalog Inj (Insulin Human Lispro) 1,000 Unit/10 Ml Vial 2-12 Units SQ ACHS Max dose at bedtime:( )units; sugars < 70,(0)units; sugars 150-199,(2)units; sugars 200-249,(4)units; sugars 250-299,(7)units; sugars 300-349,(10)units; sugars more than 349,(12)units. Starlix (Nateglinide) 120 Mg Tab 120 Mg PO TIDAC Lantus Inj (Insulin Glargine) 1,000 Unit/10 Ml Vial 35 Units SQ HS Allopurinol 300 Mg Tab 300 Mg PO DAILY Atorvastatin (Atorvastatin Calcium) 20 Mg Tab 20 Mg PO DAILY Lasix (Furosemide) 40 Mg Tab 20 Mg PO DAILY Gabapentin 300 Mg Cap 300 Mg PO BID Review of Systems Except as stated in HPI: all other systems reviewed are Neg Physical Exam Narrative GENERAL: Well-developed well-nourished in no obvious distress, morbidly obese. SKIN: Focused skin assessment warm/dry. HEAD: Atraumatic. Normocephalic. EYES: Pupils equal and round. No scleral icterus. No injection or drainage. ENT: No nasal bleeding or discharge. Mucous membranes pink and moist. NECK: Trachea midline. No JVD. CARDIOVASCULAR: Regular rate and rhythm. No murmur appreciated. RESPIRATORY: No accessory muscle use. Clear to auscultation. Breath sounds equal bilaterally. GASTROINTESTINAL: Abdomen soft, non-tender, nondistended. Hepatic and splenic margins not palpable. MUSCULOSKELETAL: No obvious deformities. No clubbing. No cyanosis. No edema. NEUROLOGICAL: Awake and alert. No obvious cranial nerve deficits. Motor grossly within normal limits. Normal speech. PSYCHIATRIC: Appropriate mood and affect; insight and judgment normal. Data Data Last Documented VS Vital Signs Date Time Temp Pulse Resp B/P (MAP) Pulse Ox O2 Delivery O2 Flow Rate FiO2 10/24/17 14:14 10/24/17 13:34 53 20 98 Room Air 10/24/17 11:36 99.0 Orders Orders Complete Blood Count With Diff (10/24/17 11:34) Comprehensive Metabolic Panel (10/24/17 11:34) Magnesium (Mg) (10/24/17 11:34) Prothrombin Time / Inr (Pt) (10/24/17 11:34) Act Partial Throm Time (Ptt) (10/24/17 11:34) Troponin I (10/24/17 11:34) Lipase (10/24/17 11:34) Ecg Monitoring (10/24/17 11:34) Iv Access Insert/Monitor (10/24/17 11:34) Oximetry (10/24/17 11:34) Oxygen Administration (10/24/17 11:34) Sodium Chloride 0.9% Flush (Ns Flush) (10/24/17 11:45) Chest, Pa & Lat (10/24/17 ) Al-Mag Hy-Si 40-40-4 Mg/Ml Liq (Mag-Al P (10/24/17 12:45) Lidocaine 2% Viscous (Xylocaine 2% Visco (10/24/17 12:45) Bilateral Bp Monitoring (10/24/17 12:45) Ed Discharge Order (10/24/17 14:05) Electrocardiogram (10/24/17 11:32) Labs Laboratory Tests Test 10/24/17 11:43 White Blood Count 10.0 TH/MM3 Red Blood Count 4.43 MIL/MM3 Hemoglobin 11.6 GM/DL Hematocrit 35.2 % Mean Corpuscular Volume 79.4 FL Mean Corpuscular Hemoglobin 26.3 PG Mean Corpuscular Hemoglobin Concent 33.1 % Red Cell Distribution Width 15.6 % Platelet Count 136 TH/MM3 Mean Platelet Volume 11.2 FL Neutrophils (%) (Auto) 68.7 % Lymphocytes (%) (Auto) 22.9 % Monocytes (%) (Auto) 4.9 % Eosinophils (%) (Auto) 3.1 % Basophils (%) (Auto) 0.4 % Neutrophils # (Auto) 6.9 TH/MM3 Lymphocytes # (Auto) 2.3 TH/MM3 Monocytes # (Auto) 0.5 TH/MM3 Eosinophils # (Auto) 0.3 TH/MM3 Basophils # (Auto) 0.0 TH/MM3 CBC Comment AUTO DIFF Differential Comment AUTO DIFF CONFIRMED Platelet Estimate LOW Platelet Morphology Comment ENLARGED Prothrombin Time 12.3 SEC Prothromb Time International Ratio 1.2 RATIO Activated Partial Thromboplast Time 35.3 SEC Blood Urea Nitrogen 19 MG/DL Creatinine 1.30 MG/DL Random Glucose 131 MG/DL Total Protein 7.6 GM/DL Albumin 3.1 GM/DL Calcium Level 8.5 MG/DL Magnesium Level 2.0 MG/DL Alkaline Phosphatase 129 U/L Aspartate Amino Transf (AST/SGOT) 12 U/L Alanine Aminotransferase (ALT/SGPT) 25 U/L Total Bilirubin 0.7 MG/DL Sodium Level 138 MEQ/L Potassium Level 4.1 MEQ/L Chloride Level 105 MEQ/L Carbon Dioxide Level 27.5 MEQ/L Anion Gap 6 MEQ/L Estimat Glomerular Filtration Rate 49 ML/MIN Troponin I LESS THAN 0.02 NG/ML Lipase 95 U/L MDM Medical Decision Making Medical Screen Exam Complete: Yes Emergency Medical Condition: Yes Differential Diagnosis ACS seems unlikely, VT and likely, reflux, dissection unlikely. Narrative Course The patient was roomed in the emergency department certainly she has risk factors for ACS but has had a complete workup recently which is negative, at this time I do not see the utility admitting her for additional cardiac workup that she has had a complete and recent workup. Furthermore additional catheterizations given her history of IV dye allergy and diabetes may put her at undue risk. She does have a dairy hand with which to follow-up and I think this is more appropriate. Furthermore I think her symptoms are highly atypical and agree that she needs to follow-up with a leadership program intern. She also relates a history that Dr. Moss is seen her in the past and states that she may have something on her distal esophagus on imaging. Have not been able to find those imaging studies at this time I do not see any emergent reason to repeat them. She was given GI cocktail in the emergency department is completely relieved her symptoms and she states she felt "amazingly much better. " Discussed returning to criteria follow-up as above. She is stable for discharge Diagnosis Primary Impression: Chest pain, atypical Referrals: Francis Mesa MD Med/Other Pt SpecificInfo: Prescription(s) given Scripts Pantoprazole (Protonix) 40 Mg Tab 40 MG PO DAILY for Reflux, #30 TAB 0 Refills Prov: Nguyễn Lehman MD 10/24/17 Disposition: 01 DISCHARGE HOME Condition: Stable Nguyễn Lehman MD Oct 24, 2017 13:08
--- NOTE | 2017-10-24 13:18 | RADRPT ---
EXAM DATE/TIME: 10/24/2017 13:01 [facility] COMPARISON: CT ABDOMEN & PELVIS W/O CONTRAST, February 16, 2017, 20:01. CHEST SINGLE AP, September 22, 2017, 10:12. C HEST PA & LAT, April 16, 2017, 11:41. INDICATIONS : Chest pain. MEDICAL HISTORY : Hypertension. Hypothyroidism. Diabetes mellitus type 2. Uterine cancer SURGICAL HISTORY : Tubal ligation. Hysterectomy ENCOUNTER: Initial ACUITY: 2 days PAIN SCORE: 5/10 LOCATION: Right chest FINDINGS: Bilateral pleural densities are noted within the lung bases laterally and are stable. The heart is st able. The pulmonary vascular pattern is normal. The lungs are otherwise clear. CONCLUSION: No focal infiltrate or pulmonary vascular congestion. Stable bibasilar pleural densities laterally. Nguyễn Apodaca MD on October 24, 2017 at 13:13 Board Certified Radiologist. This report was verified electronically.
[2017-10-24 13:33] VITALS: BP_SYST 135; BP_SYST 136; BP_DIAS 52; BP_DIAS 56; PULSE 53; RESP 20; O2SAT 98
[2017-10-24 13:34] VITALS: BP 136/56; PULSE 53; RESP 20; O2SAT 98
[2017-10-24] MEDS ORDERED: PROT40TA PO (14:05)
--- NOTE | 2017-10-26 00:26 | EKG ---
Date Performed: 10/24/2017 Time Performed: 11:32:23 PTAGE: 67 years EKG: SINUS BRADYCARDIA WITH FIRST DEGREE AV BLOCK ABNORMAL ECG INTERPRETATION BASED ON A DEFAULT AGE OF 38 YEARS PREVIOUS TRACING : 09/22/2017 09.32 Compared to prior tracing, now with 1st degree AVB DOCTOR: Juan Luis Atkins Interpretating Date/Time 10/26/2017 00:24:31
== END 2017-10-24 14:27 | disposition home or self-care (01) ==
LOC: PHED 11:25
DX: R07.9 Chest pain, unspecified (principal); R94.31 Abnormal electrocardiogram [ECG] [EKG]; E78.00 Pure hypercholesterolemia, unspecified; J44.9 Chronic obstructive pulmonary disease, unspecified; E11.9 Type 2 diabetes mellitus without complications; F32.9 Major depressive disorder, single episode, unspecified; I10 Essential (primary) hypertension; K21.9 Gastro-esophageal reflux disease without esophagitis; Z86.718 Personal history of other venous thrombosis and embolism
CPT/HCPCS: 71046; 80053; 83690; 83735; 84484; 85025; 85610; 85730; 93005; 99285

== ENCOUNTER 2017-10-27 22:49 | Emergency (ER) | payer MEDICARE, MEDICAID ==
[~2017-10-27] VITALS: Ht 162.6 cm; Wt 140.0 kg
[~2017-10-27 22:49] MED LIST changes: +ALBUAER3 INH; +PROT40TA PO
[2017-10-27 23:01] VITALS: BP 139/63; PULSE 63; RESP 16; TEMP 98.5; O2SAT 96
--- NOTE | 2017-10-27 23:38 | PD ---
HPI Chief Complaint: Chest Pain Time Seen by Provider: 23:20 Travel History International Travel<30 days: No Contact w/Intl Traveler<30days: No Traveled to known affect area: No History of Present Illness HPI PATIENT C/O SUBSTERNAL CHEST PRESSURE, 9/10, RAD TO RIGHT SIDE OF JAW, ALSO POINTS TO EPIG AREA WELL. which is a burning sensation that's worse while laying flat, sometimes improved with antacid at home but not this time.... PCP DR LINDA BOCANEGRA ALL:IODINE PMHX: DM, HTN, HYPERCHOL, GI DR MONTOYA BUT PENDING SCOPING PFSH Past Medical History Hx Anticoagulant Therapy: Yes Arthritis: Yes Asthma: Yes Anxiety: Yes Depression: Yes Heart Rhythm Problems: No Cancer: No Cardiovascular Problems: Yes High Cholesterol: Yes Chemotherapy: No Chest Pain: Yes Congestive Heart Failure: No COPD: Yes Diabetes: Yes Patient Takes Glucophage: No Diminished Hearing: No Deep Vein Thrombosis: Yes Endocrine: Yes Gastrointestinal Disorders: Yes (CONSTIPATION) Glaucoma: Yes Gout: Yes Genitourinary: Yes Hepatitis: No Hiatal Hernia: No Hypertension: Yes Immune Disorder: No Implanted Vascular Access Dvce: Yes Medical other: No Musculoskeletal: Yes (RIGHT LEG SX, LEFT LEG PAIN WHEN WALKING, RIGHT ANKLE) Neurologic: No Psychiatric: Yes (DEPRESSION) Reproductive: Yes (FIBROIDS) Respiratory: Yes (SHORTNESS OF BREATH ON EXERTION, COPD, SLEEP APNEA NO CPAP) Radiation Therapy: No Sleep Apnea: Yes Thyroid Disease: Yes Tetanus Vaccination: < 5 Years Influenza Vaccination: Yes Menopausal: Yes Tubal Ligation: Yes Past Surgical History Abdominal Surgery: Yes (LAPAROSCOPY) AICD: No Body Medical Devices: RIGHT KNEE Cardiac Surgery: No Ear Surgery: No Endocrine Surgery: No Eye Surgery: Yes (BILATERAL CATARACTS) Genitourinary Surgery: No Gynecologic Surgery: Yes (FIBROID , TUBAL LIGATION, HYSTERECTOMY) Hysterectomy: Yes Joint Replacement: Yes (RIGHT KNEE) Neurologic Surgery: No Oral Surgery: No Pacemaker: No Thoracic Surgery: No Social History Alcohol Use: Yes (RARELY) Tobacco Use: No Substance Use: No Allergies-Medications (Allergen,Severity, Reaction): Coded Allergies: Iodinated Contrast- Oral and IV Dye (Verified Allergy, Unknown, 10/27/17) Reported Meds & Prescriptions Reported Meds & Active Scripts Active Protonix (Pantoprazole Sodium) 40 Mg Tab 40 Mg PO DAILY Aspirin EC (Aspirin) 81 Mg Tabdr 81 Mg PO DAILY 30 Days Reported Proair Hfa 8.5 GM Inh (Albuterol Sulfate) 90 Mcg/Act Aer 2 Puff INH Q6H PRN 108 mcg/actuation Hydrocodone-Acetaminophen 10-325 mg Tab 1 Tab PO Q6H PRN Sertraline (Sertraline HCl) 50 Mg Tab 50 Mg PO DAILY Xarelto (Rivaroxaban) 15 Mg Tab 15 Mg PO DAILY PATIENT DID NOT STOP XARELTO FOR PROCEDURE Metoprolol Tartrate 25 Mg Tab 25 Mg PO DAILY Lisinopril 40 Mg Tab 40 Mg PO DAILY Humalog Inj (Insulin Human Lispro) 1,000 Unit/10 Ml Vial 2-12 Units SQ ACHS Max dose at bedtime:( )units; sugars < 70,(0)units; sugars 150-199,(2)units; sugars 200-249,(4)units; sugars 250-299,(7)units; sugars 300-349,(10)units; sugars more than 349,(12)units. Starlix (Nateglinide) 120 Mg Tab 120 Mg PO TIDAC Lantus Inj (Insulin Glargine) 1,000 Unit/10 Ml Vial 35 Units SQ HS Allopurinol 300 Mg Tab 300 Mg PO DAILY Atorvastatin (Atorvastatin Calcium) 20 Mg Tab 20 Mg PO DAILY Lasix (Furosemide) 40 Mg Tab 20 Mg PO DAILY Gabapentin 300 Mg Cap 300 Mg PO BID Review of Systems Except as stated in HPI: all other systems reviewed are Neg General / Constitutional: No: Fever Eyes: No: Visual changes HENT: No: Headaches Cardiovascular: Positive: Chest Pain or Discomfort Respiratory: No: Shortness of Breath Gastrointestinal: No: Abdominal Pain Genitourinary: No: Dysuria Musculoskeletal: No: Pain Skin: No Rash Neurologic: No: Weakness Psychiatric: No: Depression Endocrine: No: Polydipsia Hematologic/Lymphatic: No: Easy Bruising Physical Exam Narrative GENERAL: OBESE, AAF IN MILD TO MOD DISTRESS DUE TO PAIN SKIN: Warm and dry. HEAD: Atraumatic. Normocephalic. EYES: Pupils equal and round. No scleral icterus. No injection or drainage. ENT: No nasal bleeding or discharge. Mucous membranes pink and moist. NECK: Trachea midline. No JVD. CARDIOVASCULAR: Regular rate and rhythm. RESPIRATORY: No accessory muscle use. Clear to auscultation. Breath sounds equal bilaterally. GASTROINTESTINAL: Abdomen soft, non-tender, nondistended. MUSCULOSKELETAL: Extremities without clubbing, cyanosis, or edema. No obvious deformities. NEUROLOGICAL: Awake and alert. No obvious cranial nerve deficits. Motor grossly within normal limits. Five out of 5 muscle strength in the arms and legs. Normal speech. PSYCHIATRIC: Appropriate mood and affect; insight and judgment normal. Data Data Last Documented VS Vital Signs Date Time Temp Pulse Resp B/P (MAP) Pulse Ox O2 Delivery O2 Flow Rate FiO2 10/28/17 01:09 60 16 140/66 (90) 97 10/28/17 01:05 Room Air 10/27/17 23:01 98.5 Orders Orders Electrocardiogram (10/27/17 23:21) B-Type Natriuretic Peptide (10/27/17 23:21) Ckmb (Isoenzyme) Profile (10/27/17 23:21) Complete Blood Count With Diff (10/27/17 23:21) Comprehensive Metabolic Panel (10/27/17 23:21) Prothrombin Time / Inr (Pt) (10/27/17 23:21) Act Partial Throm Time (Ptt) (10/27/17 23:21) Troponin I (10/27/17 23:21) Lipase (10/27/17 23:21) Chest, Single Ap (10/27/17 23:21) Ecg Monitoring (10/27/17 23:21) Iv Access Insert/Monitor (10/27/17 23:21) Oximetry (10/27/17 23:21) Oxygen Administration (10/27/17 23:21) Ondansetron Inj (Zofran Inj) (10/27/17 23:45) Pantoprazole Inj (Protonix Inj) (10/27/17 23:45) Al-Mag Hy-Si 40-40-4 Mg/Ml Liq (Mag-Al P (10/27/17 23:45) Lidocaine 2% Viscous (Xylocaine 2% Visco (10/27/17 23:45) Morphine Inj (Morphine Inj) (10/27/17 23:45) Ed Discharge Order (10/28/17 00:54) Labs Laboratory Tests Test 10/27/17 23:55 White Blood Count 11.1 TH/MM3 Red Blood Count 4.57 MIL/MM3 Hemoglobin 11.8 GM/DL Hematocrit 36.8 % Mean Corpuscular Volume 80.5 FL Mean Corpuscular Hemoglobin 25.7 PG Mean Corpuscular Hemoglobin Concent 31.9 % Red Cell Distribution Width 15.1 % Platelet Count 175 TH/MM3 Mean Platelet Volume 10.9 FL Neutrophils (%) (Auto) 66.6 % Lymphocytes (%) (Auto) 24.2 % Monocytes (%) (Auto) 6.6 % Eosinophils (%) (Auto) 2.1 % Basophils (%) (Auto) 0.5 % Neutrophils # (Auto) 7.4 TH/MM3 Lymphocytes # (Auto) 2.7 TH/MM3 Monocytes # (Auto) 0.7 TH/MM3 Eosinophils # (Auto) 0.2 TH/MM3 Basophils # (Auto) 0.1 TH/MM3 CBC Comment DIFF FINAL Differential Comment Prothrombin Time 11.3 SEC Prothromb Time International Ratio 1.1 RATIO Activated Partial Thromboplast Time 32.5 SEC Blood Urea Nitrogen 21 MG/DL Creatinine 1.30 MG/DL Random Glucose 167 MG/DL Total Protein 7.9 GM/DL Albumin 3.3 GM/DL Calcium Level 8.5 MG/DL Alkaline Phosphatase 132 U/L Aspartate Amino Transf (AST/SGOT) 14 U/L Alanine Aminotransferase (ALT/SGPT) 24 U/L Total Bilirubin 0.4 MG/DL Sodium Level 136 MEQ/L Potassium Level 3.9 MEQ/L Chloride Level 103 MEQ/L Carbon Dioxide Level 27.0 MEQ/L Anion Gap 6 MEQ/L Estimat Glomerular Filtration Rate 49 ML/MIN Total Creatine Kinase 58 U/L Troponin I LESS THAN 0.02 NG/ML B-Type Natriuretic Peptide 22 PG/ML Lipase 89 U/L [facility] Medical Decision Making Medical Screen Exam Complete: Yes Emergency Medical Condition: Yes Medical Record Reviewed: Yes Interpretation(s) NSR 91, POOR R WAVE PROGRESSION, NO STEMI PATTERN, Differential Diagnosis STEMI V PE V NONSTEMI V PNA V PTX Narrative Course BASED ON CATH REPORT 2017 SEE BELOW: Left ventricular ejection fraction, 60%. Wall motion normal. No mitral regurgitation. CORONARY ANGIOGRAPHY The left main coronary artery patent. Left anterior descending coronary artery has mild 20% narrowing in the proximal - mid portion. D1 patent. Left circumflex patent. OM1 patent. OM2 patent. Right coronary artery is a dominant vessel which is patent. PDA patent. PLV patent. DIAGNOSIS: 1. Mild nonobstructive coronary artery disease. 2. Preserved left ventricular systolic function. DISPOSITION: Ms. Mckeon can be reassured about her cardiac status. She has no significant obstructive coronary artery disease and preserved left ventricular systolic function. RECOMMENDATIONS: She will continue her current medical program including modification of her cardiac risk factors. Her nuclear myocardial perfusion study was falsely abnormal. PATIENT IS THEREBY A LOW RISK CARDIAC STRATIFICATIONI Diagnosis Primary Impression: Chest pain, atypical Patient Instructions: General Instructions Disposition: 01 DISCHARGE HOME Condition: Stable Bill Justice MD Oct 27, 2017 23:38
[2017-10-27] MEDS ORDERED: MORPHINE SULFATE 4 MG/ML INJ IV PUSH ONE (23:45)
[2017-10-27] MEDS ORDERED: ALUMINUM/MAGNESIUM/SIMETH 30 ML CUP PO ONE (23:45)
[2017-10-27] MEDS ORDERED: PANTOPRAZOLE SODIUM 40 MG VIAL IVP ONE (23:45)
[2017-10-27] MEDS ORDERED: MORPHINE SULFATE 2 MG/ML INJ IV ONE (23:45)
[2017-10-27] MEDS ORDERED: LIDOCAINE VISCOUS 2% SOLN 15 ML UDC PO ONE (23:45)
[2017-10-27] MEDS ORDERED: ONDANSETRON HCL 4 MG/2 ML VIAL IVP ONE (23:45)
--- NOTE | 2017-10-27 23:56 | RADRPT ---
EXAM DATE/TIME: 10/27/2017 23:26 [facility] COMPARISON: CHEST SINGLE AP, September 22, 2017, 10:12. INDICATIONS : Chest pain. MEDICAL HISTORY : Hypertension. Hypothyroidism. Diabetes mellitus type 2. Uterine cancer. SURGICAL HISTORY : Hysterectomy. ENCOUNTER: Initial ACUITY: 1 day PAIN SCORE: 10/10 LOCATION: Bilateral chest FINDINGS: Cardiomegaly and degenerative changes of the spine. Clear lungs. CONCLUSION: No acute disease. Gabino Scanlon MD on October 27, 2017 at 23:54 Board Certified Radiologist. This report was verified electronically.
[2017-10-28 00:04] VITALS: BP 147/65; PULSE 60; RESP 16; O2SAT 96
[2017-10-28 00:15] LABS: AUTOMATED NEUTROPHIL # 7.4 TH/MM3 (1.8-7.7); BASOPHIL # 0.1 TH/MM3 (0-0.2); BASOPHIL % 0.5 % (0.0-2.0); EOSINOPHIL # 0.2 TH/MM3 (0-0.4); EOSINOPHIL % 2.1 % (0.0-4.0); HEMATOCRIT 36.8 % (35.0-46.0); HEMOGLOBIN 11.8 GM/DL (11.6-15.3); LYMPH % 24.2 % (9.0-44.0); LYMPHOCYTE # 2.7 TH/MM3 (1.0-4.8); MEAN CELL VOLUME 80.5 FL (80.0-100.0); MEAN CORPUSCULAR HEMOGLOBIN 25.7 PG (27.0-34.0); MEAN CORPUSCULAR HGB CONC 31.9 % (32.0-36.0); MEAN PLATELET VOLUME 10.9 FL (7.0-11.0); MONO % 6.6 % (0.0-8.0); MONOCYTE # 0.7 TH/MM3 (0-0.9); NEUT % 66.6 % (16.0-70.0); PLATELET COUNT 175 TH/MM3 (150-450); RED BLOOD COUNT 4.57 MIL/MM3 (4.00-5.30); RED CELL DISTRIBUTION WIDTH 15.1 % (11.6-17.2); WHITE BLOOD COUNT 11.1 TH/MM3 (4.0-11.0)
[2017-10-28 00:21] LABS: CHLORIDE 103 MEQ/L (98-107); SODIUM (NA) 136 MEQ/L (136-145)
[2017-10-28 00:24] LABS: CALCIUM 8.5 MG/DL (8.5-10.1)
[2017-10-28 00:25] LABS: ALBUMIN 3.3 GM/DL (3.4-5.0); BLOOD UREA NITROGEN 21 MG/DL (7-18); GLUCOSE,RANDOM 167 MG/DL (74-106)
[2017-10-28 00:27] LABS: ALT (GPT) 24 U/L (10-53)
[2017-10-28 00:28] LABS: AST (GOT) 14 U/L (15-37); GLOMERULAR FILTRATION RATE 49 ML/MIN (>89)
[2017-10-28 00:29] LABS: TOTAL BILIRUBIN ADULT 0.4 MG/DL (0.2-1.0); TOTAL PROTEIN 7.9 GM/DL (6.4-8.2)
[2017-10-28 00:30] LABS: ALKALINE PHOSPHATASE 132 U/L (45-117)
[2017-10-28 00:33] LABS: TROPONIN I LESS THAN 0.02 NG/ML (0.02-0.05)
[2017-10-28 00:38] LABS: INTERNATIONAL NORMALIZED RATIO 1.1 RATIO; PROTHROMBIN TIME - PATIENT 11.3 SEC (9.8-11.6)
[2017-10-28 01:05] VITALS: BP 142/61; PULSE 54; RESP 18; O2SAT 99
[2017-10-28 01:09] VITALS: BP 140/66
--- NOTE | 2017-10-28 18:58 | EKG ---
Date Performed: 10/27/2017 Time Performed: 23:25:56 PTAGE: 67 years EKG: Sinus rhythm POSSIBLE RIGHT VENTRICULAR CONDUCTION DELAY MINIMAL VOLTAGE CRITERIA FOR LVH, CONSIDER NORMAL VARIAN T SEPTAL MYOCARDIAL INFARCTION When compared to previous tracing, sinus rate is slightly faster. ABNO RMAL ECG PREVIOUS TRACING : 10/24/2017 11.32 DOCTOR: Hoang Garza Interpretating Date/Time 10/28/2017 18:58:16
== END 2017-10-28 01:16 | disposition home or self-care (01) ==
LOC: PHED 22:49
DX: R07.89 Other chest pain (principal); R68.84 Jaw pain; R10.13 Epigastric pain; R94.31 Abnormal electrocardiogram [ECG] [EKG]; I10 Essential (primary) hypertension; E11.9 Type 2 diabetes mellitus without complications; E78.00 Pure hypercholesterolemia, unspecified; J44.9 Chronic obstructive pulmonary disease, unspecified; M10.9 Gout, unspecified; F41.8 Other specified anxiety disorders; E07.9 Disorder of thyroid, unspecified; G47.30 Sleep apnea, unspecified; Z79.4 Long term (current) use of insulin; Z79.01 Long term (current) use of anticoagulants; Z87.39 Personal history of other diseases of the musculoskeletal system and connective tissue; Z86.718 Personal history of other venous thrombosis and embolism
CPT/HCPCS: 71045; 80053; 82550; 83690; 83880; 84484; 85025; 85610; 85730; 93005; 96374; 96375; 99285; C9113; J2270; J2405

== ENCOUNTER → 2017-12-09 | Outpatient (CLI) | payer MEDICARE, MEDICAID ==
[~2017-12-09] VITALS: Ht 162.6 cm; Wt 139.0 kg
[~2017-12-09] MED LIST changes: +DEXTROSE 5%-LACTATED RING INJ 1,000 ML IV SCH; +LACTATED RINGER'S 1000 ML INJ 1,000 ML IV ONE; +LACTATED RINGER'S 1000 ML IV PRN; +LIDOCAINE HCL 1% PF 5 ML SYRINGE OTHER ONE; +METOPROLOL TARTRATE 25 MG TAB PO PRN; +PROPOFOL 200 MG/20 ML AMP IV ONE; +SODIUM CHLORID 0.9% 500 ML IV PRN
--- NOTE | 2017-12-09 13:20 | PD.PROCEDR ---
GI Procedure PROCEDURE PERFORMED EGD followed by EUS with FNA INDICATION FOR PROCEDURE Positive PET scan showing hypermetabolism at the GE junction PROCEDURE: The procedure, risks and benefits were discussed with Ms. Ware and informed consent was obtained. Anesthesia sedated her with Diprivan. She was placed in the left lateral decubitus position. EGD: The Pentax videoscope was introduced through the oropharynx and advanced to the second portion of the duodenum under direct visualization. Retroflexion was performed in the stomach. FINDINGS: The esophagus this appeared to be unremarkable with normal limits The stomach there was a submucosal mass noted in the cardia just beneath the GE junction otherwise gastric mucosa unremarkable The duodenum this was normal EUS: The Pentax videoscope was introduced through the oropharynx and advanced to the stomach. FINDINGS: The submucosal lesion was noted to be just beneath the GE junction this was a hypoechoic mass measuring about 1.7 x 1.7 cm this was at the level of the third layer it was well-circumscribed no invasive features no local lymphadenopathy FNA was performed it was soft and good samples were obtained ESTIMATED BLOOD LOSS: None SPECIMENS REMOVED: FNA COMPLICATIONS: None IMPRESSION: Submucosal mass just beneath the GE junction and the cardia most suggestive of a leiomyoma or GIST PLAN: Await biopsies Follow-up in 2 weeks Francis Mesa MD Dec 09, 2017 13:20
[2017-12-09 14:16] VITALS: BP 133/60; PULSE 55; RESP 18; TEMP 97.8; O2SAT 100
== END ==
LOC: HSDC 08:30
PROVIDERS: ATTEND Internal Medicine Gastroenterology
DX: R93.8 Abnormal findings on diagnostic imaging of other specified body structures (principal); K31.89 Other diseases of stomach and duodenum
CPT/HCPCS: 00731; 43242; 88112; 88305; J7120; 88341

== ENCOUNTER → 2017-12-23 | Outpatient (CLI) | payer MEDICARE, MEDICAID ==
[~2017-12-23] VITALS: Ht 162.6 cm; Wt 139.4 kg
[~2017-12-23] MED LIST changes: +CHLORHEXIDINE GLUCONATE 2 % 1 PACK (2 CLOTHS) TOPICAL PRN; -DEXTROSE 5%-LACTATED RING INJ 1,000 ML IV SCH; -FURO1TAB60 PO; +FURO20TA PO; +INSULIN HUMAN REGULAR 1,000 UNITS/10 ML VIAL SQ PRN; -LACTATED RINGER'S 1000 ML INJ 1,000 ML IV ONE; +POVIDONE IODINE 5% (ANTISEPSIS KIT) 4 APPLICATIONS EACH NARE PRN
[2017-12-23 11:35] VITALS: BP 133/64; PULSE 50; RESP 18; TEMP 97.4; O2SAT 95
--- NOTE | 2017-12-23 11:42 | PD.PROCEDR ---
GI Procedure Procedure performed Colonoscopy with IRC INDICATION FOR PROCEDURE Rectal bleeding PROCEDURE: The procedure, risks and benefits were discussed with Ms. Mckeon and informed consent was obtained. Anesthesia sedated her with Diprivan. She was placed in the left lateral decubitus position. Colonoscopy: The Pentax videoscope was introduced through the rectum and advanced to cecum which was identified by the ileocecal valve and appendiceal orifice. Retroflexion was performed in the rectum. Colonic prep was fair ESTIMATED BLOOD LOSS: None SPECIMENS REMOVED: None COMPLICATIONS: None IMPRESSION: Some stool may interfere with the vision of small lesion Terminal ileum is normal Colon is normal Moderate size internal hemorrhoid treated with 8 application of IRC to second each PLAN: Preparation H twice daily for 14 days and then as needed Avoid constipation Repeat flexible sigmoidoscopy in 3-4 weeks if bleeding continue Colonoscopy in 5 years Eusebio King MD Dec 23, 2017 11:42
== END ==
LOC: HEND 08:10
PROVIDERS: ATTEND Hospitalist
DX: K62.5 Hemorrhage of anus and rectum (principal); K64.0 First degree hemorrhoids; I10 Essential (primary) hypertension; K21.9 Gastro-esophageal reflux disease without esophagitis
CPT/HCPCS: 00902; 46930; J7120

== ENCOUNTER 2018-01-28 11:09 | Emergency (ER) | payer MEDICARE, MEDICAID ==
[~2018-01-28] VITALS: Ht 162.6 cm; Wt 140.0 kg
[~2018-01-28 11:09] MED LIST changes: -CHLORHEXIDINE GLUCONATE 2 % 1 PACK (2 CLOTHS) TOPICAL PRN; -INSULIN HUMAN REGULAR 1,000 UNITS/10 ML VIAL SQ PRN; -LACTATED RINGER'S 1000 ML IV PRN; -LIDOCAINE HCL 1% PF 5 ML SYRINGE OTHER ONE; -METOPROLOL TARTRATE 25 MG TAB PO PRN; -POVIDONE IODINE 5% (ANTISEPSIS KIT) 4 APPLICATIONS EACH NARE PRN; -PROPOFOL 200 MG/20 ML AMP IV ONE; -SODIUM CHLORID 0.9% 500 ML IV PRN
[2018-01-28 11:14] VITALS: PULSE 61; RESP 16; TEMP 98.6; O2SAT 97
[2018-01-28] MEDS ORDERED: BACL10TA PO (11:38)
[2018-01-28] MEDS ORDERED: ESZO1TAB3 PO (11:38)
[2018-01-28] MEDS ORDERED: OMEG100010 P-ARTICULR (11:38)
[2018-01-28] MEDS ORDERED: INSU1INJ18 SQ (11:38)
[2018-01-28 11:42] VITALS: BP 151/56
--- NOTE | 2018-01-28 11:43 | PD ---
HPI Chief Complaint: Skin Problem Time Seen by Provider: 11:31 Travel History International Travel<30 days: No Contact w/Intl Traveler<30days: No Traveled to known affect area: No History of Present Illness HPI 67-year-old female that presents to the ED for evaluation of left hand swelling and pain. Per patient about 2 weeks ago she developed severe itchiness of the left palm. Per patient she scratched herself significantly. Now she is having pain. Per patient the pain is 6 out of 10 and she is also noticed some swelling. His been going on for about a week now. Itchiness has improved but the pain now is concerning her as well as the swelling. She denies any injury. Mainly she appears to be concerned about infection secondary to be diabetic. She takes insulin. She has not seen her doctor. Has not taken anything for this. No other medical issues. She does take Lortab chronically. Denies any fevers chills or sweats. No trauma or previous injury. She does use her fingers on the left hand for checking her sugar. PFSH Past Medical History Hx Anticoagulant Therapy: Yes Arthritis: Yes Asthma: Yes Anxiety: Yes Depression: Yes Heart Rhythm Problems: No Cancer: Yes (uterine?) Cardiovascular Problems: Yes (CAD, chol) High Cholesterol: Yes Chemotherapy: No Chest Pain: Yes Congestive Heart Failure: No COPD: Yes Diabetes: Yes (IDDM) Diminished Hearing: No Deep Vein Thrombosis: Yes Endocrine: Yes Gastrointestinal Disorders: Yes (CONSTIPATION) Glaucoma: Yes Gout: Yes Genitourinary: No Hepatitis: No Hiatal Hernia: No Hypertension: Yes Immune Disorder: No Implanted Vascular Access Dvce: Yes Musculoskeletal: Yes ( LEFT LEG PAIN WHEN WALKING, pain right ankle, arthritis) Neurologic: Yes (numbness in hand and feet, diabetic neuropathy) Psychiatric: Yes (DEPRESSION) Reproductive: Yes (FIBROIDS) Respiratory: Yes (sleep apnea cpap, sob on exertion) Radiation Therapy: No Sleep Apnea: Yes Thyroid Disease: Yes (pt sts thyroid problem but not on medication) Menopausal: Yes Tubal Ligation: Yes Past Surgical History Abdominal Surgery: Yes (LAPAROSCOPY) AICD: No Body Medical Devices: RIGHT KNEE Cardiac Surgery: No Ear Surgery: No Endocrine Surgery: No Eye Surgery: Yes (BILATERAL CATARACTS) Genitourinary Surgery: No Gynecologic Surgery: Yes (FIBROID , TUBAL LIGATION, HYSTERECTOMY) Hysterectomy: Yes Joint Replacement: Yes (RIGHT KNEE) Neurologic Surgery: No Oral Surgery: Yes (tonsillectomy) Pacemaker: No Thoracic Surgery: No Social History Alcohol Use: Yes (RARELY) Tobacco Use: No Substance Use: No Allergies-Medications (Allergen,Severity, Reaction): Coded Allergies: Iodinated Contrast- Oral and IV Dye (Verified Allergy, Severe, Swelling, ) Reported Meds & Prescriptions Reported Meds & Active Scripts Active Protonix (Pantoprazole Sodium) 40 Mg Tab 40 Mg PO DAILY Aspirin EC (Aspirin) 81 Mg Tabdr 81 Mg PO DAILY 30 Days Reported [place] 3 1000 mg ([place]-3 Fatty Acids) 300 Mg-1,000 Mg Cap 1 Tab P-ARTICULR DAILY Eszopiclone 2 Mg Tab 2 Mg PO HS PRN Basaglar Kwikpen (Insulin Glargine) 100 Unit/Ml Pen 1 Units SQ DAILY Baclofen 10 Mg Tab 10 Mg PO Q8HR Furosemide 20 Mg Tab 20 Mg PO DAILY Proair Hfa 8.5 GM Inh (Albuterol Sulfate) 90 Mcg/Act Aer 2 Puff INH Q6H PRN 108 mcg/actuation Hydrocodone-Acetaminophen 10-325 mg Tab 1 Tab PO Q6H PRN Sertraline (Sertraline HCl) 50 Mg Tab 50 Mg PO DAILY Xarelto (Rivaroxaban) 15 Mg Tab 15 Mg PO DAILY Metoprolol Tartrate 25 Mg Tab 25 Mg PO DAILY Lisinopril 40 Mg Tab 40 Mg PO DAILY Starlix (Nateglinide) 120 Mg Tab 120 Mg PO TIDAC Lantus Inj (Insulin Glargine) 1,000 Unit/10 Ml Vial 35 Units SQ HS Allopurinol 300 Mg Tab 300 Mg PO DAILY Atorvastatin (Atorvastatin Calcium) 20 Mg Tab 20 Mg PO DAILY Gabapentin 300 Mg Cap 300 Mg PO BID Review of Systems Except as stated in HPI: all other systems reviewed are Neg Physical Exam Narrative GENERAL: Morbidly obese SKIN: Warm and dry. HEAD: Atraumatic. Normocephalic. EYES: Pupils equal and round. No scleral icterus. No injection or drainage. ENT: No nasal bleeding or discharge. Mucous membranes pink and moist. Tongue is midline. No uvula deviation. NECK: Trachea midline. No JVD. CARDIOVASCULAR: Regular rate and rhythm. RESPIRATORY: No accessory muscle use. Clear to auscultation. Breath sounds equal bilaterally. GASTROINTESTINAL: Abdomen soft, non-tender, nondistended. Hepatic and splenic margins not palpable. MUSCULOSKELETAL: Extremities without clubbing, cyanosis, or edema. No obvious deformities. Full range of motion of the upper and lower extremities bilaterally. 2+ pulses bilaterally. Left hand slightly more swollen than right but barely. Patient does appear to have more redness on the palm to the right but appears to be more benign. Not warm to touch. No obvious sign of pus. Patient does have multiple wounds to the fingertips from her checking her sugar. Full range of motion of all digits. 5 out of 5 strength. 2+ pulses bilaterally. NEUROLOGICAL: Awake and alert. No obvious cranial nerve deficits. Motor grossly within normal limits. Five out of 5 muscle strength in the arms and legs. Normal speech. PSYCHIATRIC: Appropriate mood and affect; insight and judgment normal. Data Data Last Documented VS Vital Signs Date Time Temp Pulse Resp B/P (MAP) Pulse Ox O2 Delivery O2 Flow Rate FiO2 01/28/18 11:14 98.6 61 16 97 Orders Orders Ed Discharge Order (01/28/18 11:37) [facility] Medical Decision Making Medical Screen Exam Complete: Yes Emergency Medical Condition: Yes Medical Record Reviewed: Yes Differential Diagnosis Dermatitis versus swelling versus gout versus infection versus cellulitis versus urticaria versus neuropathy Narrative Course 67-year-old female that presents to the ED for evaluation of hand swelling and pain as well as itchiness. Patient was properly examined and was found to have signs and symptoms of unclear etiology. Hand itself does not appear to be more significantly swollen tender right one until there is some swelling compared to the right. There is some erythema noted on the hand but not overly impressive and not warm to touch. Patient does describe symptoms of urticaria on the hand that caused her to scratch significantly and then the pain and swelling started. Cannot completely rule out infection. I will start the patient on Keflex to rule out bacterial infection as well as a prescription for hydrocortisone cream to put on the hand and low-dose Medrol Dosepak to help with itchiness and swelling. The only thing I cannot completely rule out his diabetic neuropathy although this appears to be less likely as patient only has symptoms on the left hand. She does not have any other sign of weakness or neurological deficit and has good sensation at this time. I recommend close follow-up with PCP. Follow-up with PCP. See ED if worsening symptoms. Diagnosis Primary Impression: Infection of hand Additional Impression: Hand swelling Qualified Codes: M79.89 - Other specified soft tissue disorders Patient Instructions: General Instructions Additional Instructions: Take medications as prescribed. Follow-up with her primary care doctor in the next couple of weeks for further evaluation. See ED if worsening symptoms. Med/Other Pt SpecificInfo: Prescription(s) given Disposition: 01 DISCHARGE HOME Condition: Stable See Pri[place] January 28, 2018 11:43
[2018-01-28] MEDS ORDERED: MEDR4PAK PO (11:44)
[2018-01-28] MEDS ORDERED: HYDR1CRE TOPICAL (11:44)
[2018-01-28] MEDS ORDERED: CEPH-460 PO (11:44)
== END 2018-01-28 11:55 | disposition home or self-care (01) ==
LOC: PHEFT 11:09
DX: M79.89 Other specified soft tissue disorders (principal); L08.9 Local infection of the skin and subcutaneous tissue, unspecified; J44.9 Chronic obstructive pulmonary disease, unspecified; E11.9 Type 2 diabetes mellitus without complications; I10 Essential (primary) hypertension; M10.9 Gout, unspecified; E78.00 Pure hypercholesterolemia, unspecified; I25.10 Atherosclerotic heart disease of native coronary artery without angina pectoris; Z86.718 Personal history of other venous thrombosis and embolism
CPT/HCPCS: 99283

== ENCOUNTER 2018-02-06 22:06 | Emergency (ER) | payer MEDICARE, MEDICAID ==
[~2018-02-06] VITALS: Ht 165.1 cm; Wt 138.3 kg
[~2018-02-06 22:06] MED LIST changes: +BACL10TA PO; +CEPH-460 PO; +ESZO1TAB3 PO; -HUMALOG SQ; +HYDR1CRE TOPICAL; +INSU1INJ18 SQ; +MEDR4PAK PO; +OMEG100010 P-ARTICULR
[2018-02-06 22:15] VITALS: BP 120/56; PULSE 65; RESP 16; TEMP 98.2; O2SAT 97
[2018-02-06 22:48] VITALS: BP 124/56; PULSE 58; RESP 18; O2SAT 97
[2018-02-06] MEDS ORDERED: SODIUM CHLORIDE 0.9% FLUSH 10 ML FLUSH IVF PRN (23:45)
[2018-02-06] MEDS ORDERED: KETOROLAC TROMETHAMINE 30 MG/ML (IVP) VIAL IV PUSH ONE (23:45)
--- NOTE | 2018-02-07 00:14 | PD ---
HPI Chief Complaint: Pain: Acute or Chronic Time Seen by Provider: 23:41 Travel History International Travel<30 days: No Contact w/Intl Traveler<30days: No Traveled to known affect area: No History of Present Illness HPI 67-year-old female presents to the emergency department for painful right shoulder and arm with recent bruising noted. Patient had been on Xarelto for DVT of the left lower extremity until 2-3 days ago and her managing physician told her she could discontinue this medication as she was no longer at risk for DVT. Patient has had no lower extremity pain or swelling. No report of pleuritic chest pain or shortness of breath or hemoptysis. Patient presents due to shoulder pain and bruising that she noted since yesterday that seemed to be somewhat enlarged and also some mild swelling of the right upper arm. Patient's had no fever chills no nausea vomiting. Patient has had some intermittent chest tightness. Patient denies shortness of breath sweats nausea vomiting referred neck jaw mid scapular abdominal pain. Patient rates shoulder pain 8/10 in intensity worsened by palpation or movement. Distal extremities neurovascular tendon intact. Patient denies any known injury. PFSH Past Medical History Narrative Medical Arthritis asthma dyslipidemia COPD diabetes DVT hypothyroidism laparoscopy hysterectomy no substance use nursing notes reviewed Hx Anticoagulant Therapy: Yes Arthritis: Yes Asthma: Yes Anxiety: Yes Depression: Yes Heart Rhythm Problems: No Cancer: Yes (uterine?) Cardiovascular Problems: Yes High Cholesterol: Yes Chemotherapy: No Chest Pain: Yes Congestive Heart Failure: No COPD: Yes Diabetes: Yes Patient Takes Glucophage: No Diminished Hearing: No Deep Vein Thrombosis: Yes Endocrine: Yes Gastrointestinal Disorders: Yes (CONSTIPATION, recent bloody stools) Glaucoma: Yes Gout: Yes Genitourinary: No Hepatitis: No Hiatal Hernia: No Hypertension: Yes Immune Disorder: No Implanted Vascular Access Dvce: Yes Medical other: Yes (gout) Musculoskeletal: Yes ( LEFT LEG PAIN WHEN WALKING, pain right ankle, arthritis) Neurologic: Yes (numbness in hand and feet, diabetic neuropathy) Psychiatric: Yes (DEPRESSION) Reproductive: Yes (FIBROIDS) Respiratory: Yes (sleep apnea cpap, sob on exertion) Immunizations Current: Yes Radiation Therapy: No Sleep Apnea: Yes Thyroid Disease: Yes (pt sts thyroid problem but not on medication) Tetanus Vaccination: Unknown Influenza Vaccination: Yes ?: Not Menopausal: Yes Tubal Ligation: Yes Past Surgical History Abdominal Surgery: Yes (LAPAROSCOPY) AICD: No Body Medical Devices: RIGHT KNEE Cardiac Surgery: No Ear Surgery: No Endocrine Surgery: No Eye Surgery: Yes (BILATERAL CATARACTS) Genitourinary Surgery: No Gynecologic Surgery: Yes (FIBROID , TUBAL LIGATION, HYSTERECTOMY) Hysterectomy: Yes Joint Replacement: Yes (RIGHT KNEE) Neurologic Surgery: No Oral Surgery: Yes (tonsillectomy) Pacemaker: No Thoracic Surgery: No Other Surgery: Yes ( ) Social History Alcohol Use: Yes (RARELY) Tobacco Use: No Substance Use: No Allergies-Medications (Allergen,Severity, Reaction): Coded Allergies: Iodinated Contrast- Oral and IV Dye (Verified Allergy, Severe, Swelling, ) Reported Meds & Prescriptions Reported Meds & Active Scripts Active Keflex (Cephalexin) 500 Mg Capsule 500 Mg PO Q8H 10 Days Hydrocortisone Topical 1% Cream 1 Applic TOPICAL BID 10 Days Protonix (Pantoprazole Sodium) 40 Mg Tab 40 Mg PO DAILY Reported Eszopiclone 2 Mg Tab 2 Mg PO HS PRN Basaglar Kwikpen (Insulin Glargine) 100 Unit/Ml Pen 1 Units SQ DAILY Baclofen 10 Mg Tab 10 Mg PO Q8HR Furosemide 20 Mg Tab 20 Mg PO DAILY Proair Hfa 8.5 GM Inh (Albuterol Sulfate) 90 Mcg/Act Aer 2 Puff INH Q6H PRN 108 mcg/actuation Hydrocodone-Acetaminophen 10-325 mg Tab 1 Tab PO Q6H PRN Sertraline (Sertraline HCl) 50 Mg Tab 50 Mg PO DAILY Metoprolol Tartrate 25 Mg Tab 25 Mg PO DAILY Lisinopril 40 Mg Tab 40 Mg PO DAILY Starlix (Nateglinide) 120 Mg Tab 120 Mg PO TIDAC Lantus Inj (Insulin Glargine) 1,000 Unit/10 Ml Vial 35 Units SQ HS Allopurinol 300 Mg Tab 300 Mg PO DAILY Atorvastatin (Atorvastatin Calcium) 20 Mg Tab 20 Mg PO DAILY Gabapentin 300 Mg Cap 300 Mg PO BID Review of Systems Except as stated in HPI: all other systems reviewed are Neg Physical Exam Narrative GENERAL: Well-developed well-nourished obese female no acute distress no respiratory distress GCS 15 SKIN: Warm and dry. HEAD: Normocephalic. EYES: No scleral icterus. No injection or drainage. NECK: Supple, trachea midline. No JVD or lymphadenopathy. CARDIOVASCULAR: Regular rate and rhythm without murmurs, gallops, or rubs. RESPIRATORY: Breath sounds equal bilaterally. No accessory muscle use. GASTROINTESTINAL: Abdomen soft, non-tender, nondistended. MUSCULOSKELETAL: No cyanosis, or edema; bruising noted to right upper arm without cording or palpable hematoma distal extremities neurovascular tendon intact BACK: Nontender without obvious deformity. No CVA tenderness. Data Data Last Documented VS Vital Signs Date Time Temp Pulse Resp B/P (MAP) Pulse Ox O2 Delivery O2 Flow Rate FiO2 02/07/18 03:15 55 18 128/64 (85) 97 Room Air 02/06/18 22:15 98.2 Orders Orders Electrocardiogram (02/06/18 23:41) Basic Metabolic Panel (Bmp) (02/06/18 23:41) Ckmb (Isoenzyme) Profile (02/06/18 23:41) Complete Blood Count With Diff (02/06/18 23:41) Magnesium (Mg) (02/06/18 23:41) Prothrombin Time / Inr (Pt) (02/06/18 23:41) Act Partial Throm Time (Ptt) (02/06/18 23:41) Troponin I (02/06/18 23:41) Ecg Monitoring (02/06/18 23:41) Bilateral Bp Monitoring (02/06/18 23:41) Iv Access Insert/Monitor (02/06/18 23:41) Oximetry (02/06/18 23:41) Oxygen Administration (02/06/18 23:41) Sodium Chloride 0.9% Flush (Ns Flush) (02/06/18 23:45) Chest, Pa & Lat (02/06/18 23:41) Humerus (Min 2vws) (02/06/18 ) Ketorolac Inj (Toradol Inj) (02/06/18 23:45) Us Arm Venous Doppler (02/07/18 ) Sodium Chlorid 0.9% 500 Ml Inj (Ns 500 M (02/07/18 02:15) Urinalysis - C+S If Indicated (02/07/18 02:14) Ed Discharge Order (02/07/18 03:35) Labs Laboratory Tests Test 02/07/18 00:20 02/07/18 03:13 White Blood Count 14.2 TH/MM3 Red Blood Count 5.00 MIL/MM3 Hemoglobin 13.3 GM/DL Hematocrit 40.5 % Mean Corpuscular Volume 81.0 FL Mean Corpuscular Hemoglobin 26.6 PG Mean Corpuscular Hemoglobin Concent 32.9 % Red Cell Distribution Width 15.8 % Platelet Count 192 TH/MM3 Mean Platelet Volume 11.7 FL Neutrophils (%) (Auto) 69.0 % Lymphocytes (%) (Auto) 24.1 % Monocytes (%) (Auto) 4.3 % Eosinophils (%) (Auto) 2.2 % Basophils (%) (Auto) 0.4 % Neutrophils # (Auto) 9.8 TH/MM3 Lymphocytes # (Auto) 3.4 TH/MM3 Monocytes # (Auto) 0.6 TH/MM3 Eosinophils # (Auto) 0.3 TH/MM3 Basophils # (Auto) 0.1 TH/MM3 CBC Comment AUTO DIFF Differential Comment AUTO DIFF CONFIRMED Prothrombin Time 9.8 SEC Prothromb Time International Ratio 1.0 RATIO Activated Partial Thromboplast Time 24.0 SEC Blood Urea Nitrogen 42 MG/DL Creatinine 1.80 MG/DL Random Glucose 89 MG/DL Calcium Level 9.7 MG/DL Magnesium Level 2.5 MG/DL Sodium Level 138 MEQ/L Potassium Level 4.8 MEQ/L Chloride Level 105 MEQ/L Carbon Dioxide Level 27.1 MEQ/L Anion Gap 6 MEQ/L Estimat Glomerular Filtration Rate 34 ML/MIN Total Creatine Kinase 69 U/L Troponin I LESS THAN 0.02 NG/ML Urine Color YELLOW Urine Turbidity CLEAR Urine pH 5.5 Urine Specific [place] LESS/EQUAL 1.005 Urine Protein NEG mg/dL Urine Glucose (UA) NEG mg/dL Urine Ketones NEG mg/dL Urine Occult Blood NEG Urine Nitrite NEG Urine Bilirubin NEG Urine Urobilinogen 0.2 MG/DL Urine Leukocyte Esterase NEG Urine RBC 0-3 /hpf Urine WBC 0-2 /hpf Urine Squamous Epithelial Cells 0-5 /hpf Microscopic Urinalysis Comment CULT NOT INDICATED MDM Medical Decision Making Medical Screen Exam Complete: Yes Emergency Medical Condition: Yes Medical Record Reviewed: Yes (Cardiac catheterization 08/01 identifies minimal coronary vessel disease less than 20% medical management recommended) Interpretation(s) EKG: Normal sinus rhythm rate [address] elevation injury pattern or ectopy noted normal axis and intervals Troponin I less than 0.02, not elevated Urinalysis: Within normal limits Last Impressions Upper Extremity Ultrasound 02/07/18 0000 Signed Impressions: CONCLUSION: 1. Negative study. No venous thrombosis of the right upper extremity. No fluid collection demonstrated. Chest X-Ray 02/06/18 2341 Signed Impressions: CONCLUSION: No evidence of acute cardiopulmonary disease. Humerus X-Ray 02/06/18 0000 Signed Impressions: CONCLUSION: Intact right humerus. Degenerative changes at the shoulder. CBC & BMP Diagram 02/07/18 00:20 Calcium Level 9.7, Magnesium Level 2.5 Vital Signs Date Time Temp Pulse Resp B/P (MAP) Pulse Ox O2 Delivery O2 Flow Rate FiO2 02/07/18 03:15 55 18 128/64 (85) 97 Room Air 02/07/18 00:37 57 18 130/65 (86) 97 Room Air 02/07/18 00:36 124/56 (78) 130/65 (86) 02/06/18 22:48 58 18 124/56 (78) 97 Room Air 02/06/18 22:38 18 02/06/18 22:15 98.2 65 16 120/56 (77) 97 Differential Diagnosis Ecchymosis, contusion, fracture, bursitis, atypical chest pain, ACS, UTI, DVT Narrative Course IV access obtained specimens collected and sent for resulting imaging studies ordered chest x-ray reveals no acute process humerus x-ray reveals no acute fracture or subluxation or dislocation chronic changes are noted DVT study is negative Lab values CBC is automated differential mild leukocytosis and a differential no significant left shift otherwise in normal range chemistries remarkable for renal insufficiency urinalysis is normal Patient is stable for outpatient management and follow-up with her primary care provider is encouraged to increase fluid hydration regarding renal insufficiency apply ice pack to arm bruise intermittently for first 1224 hrs. and then moist heat to shoulder as needed for pain associated with bursitis. Diagnosis Primary Impression: Bursitis of shoulder, right Additional Impressions: Arm bruise Qualified Codes: S40.021A - Contusion of right upper arm, initial encounter Renal insufficiency Referrals: Primary Care Physician 3 days Patient Instructions: General Instructions Additional Instructions: Increase fluid hydration Take chronic medications as chronically prescribed May apply ice pack intermittently to right upper arm to decrease bruising and moist heat to right shoulder for comfort purposes Return to the emergency department for any concerns or change in condition Follow-up with your primary care provider Med/Other Pt SpecificInfo: No Change to Meds Disposition: DISCHARGE HOME Condition: Stable Lisa Mcginnis MD February 07, 2018 00:14
--- NOTE | 2018-02-07 00:25 | RADRPT ---
EXAM DATE: 02/07/2018 12:17 AM EDT AGE/SEX: 67 years / Female INDICATIONS: Right sided chest pain for 24 hours with no known trauma CLINICAL DATA: This is the patient's initial encounter. Patient reports that signs and symptoms have been present for 1 day and indicates a pain score of 5/10. MEDICAL/SURGICAL HISTORY: None. None. COMPARISON: [facility], CT CHEST W/O CONTRAST, 01/21/2018. [facility], CHEST PA & LAT, 04/16/2017. [facility], CHEST P A & LAT, 10/24/2017. . FINDINGS: No acute infiltrate demonstrated. No pleural effusion or pneumothorax. 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 Fatty pleural thickening is also seen posteriorly of both lungs. Normal, stable heart size. Mediastinal silhouette within normal limits. CONCLUSION: No evidence of acute cardiopulmonary disease. Electronically signed by: Jarrod Quick MD 02/07/2018 12:23 AM EDT
--- NOTE | 2018-02-07 00:26 | RADRPT ---
EXAM DATE: 02/07/2018 12:18 AM EDT AGE/SEX: 67 years / Female INDICATIONS: Right upper arm bruising, pain for 24 hours with no known injury CLINICAL DATA: This is the patient's initial encounter. Patient reports that signs and symptoms have been present for 1 day and indicates a pain score of 8/10. MEDICAL/SURGICAL HISTORY: None. None. COMPARISON: No prior [place] exams available for comparison. FINDINGS: The right humerus is intact and has normal morphology. 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 No perceptible focal soft tissue abnormality. CONCLUSION: Intact right humerus. Degenerative changes at the shoulder. Electronically signed by: Jarrod Quick MD 02/07/2018 12:25 AM EDT
[2018-02-07 00:36] VITALS: BP_SYST 124; BP_SYST 130; BP_DIAS 56; BP_DIAS 65
[2018-02-07 00:37] VITALS: BP 130/65; PULSE 57; RESP 18; O2SAT 97
[2018-02-07 00:46] LABS: AUTOMATED NEUTROPHIL # 9.8 TH/MM3 (1.8-7.7); BASOPHIL # 0.1 TH/MM3 (0-0.2); BASOPHIL % 0.4 % (0.0-2.0); EOSINOPHIL # 0.3 TH/MM3 (0-0.4); EOSINOPHIL % 2.2 % (0.0-4.0); HEMATOCRIT 40.5 % (35.0-46.0); HEMOGLOBIN 13.3 GM/DL (11.6-15.3); LYMPH % 24.1 % (9.0-44.0); LYMPHOCYTE # 3.4 TH/MM3 (1.0-4.8); MEAN CORPUSCULAR HEMOGLOBIN 26.6 PG (27.0-34.0); MEAN CORPUSCULAR HGB CONC 32.9 % (32.0-36.0); MEAN PLATELET VOLUME 11.7 FL (7.0-11.0); MONO % 4.3 % (0.0-8.0); MONOCYTE # 0.6 TH/MM3 (0-0.9); PLATELET COUNT 192 TH/MM3 (150-450); RED CELL DISTRIBUTION WIDTH 15.8 % (11.6-17.2); WHITE BLOOD COUNT 14.2 TH/MM3 (4.0-11.0)
[2018-02-07 00:57] LABS: CHLORIDE 105 MEQ/L (98-107); SODIUM (NA) 138 MEQ/L (136-145)
[2018-02-07 00:59] LABS: CALCIUM 9.7 MG/DL (8.5-10.1)
[2018-02-07 01:00] LABS: BICARBONATE 27.1 MEQ/L (21.0-32.0); BLOOD UREA NITROGEN 42 MG/DL (7-18); GLUCOSE,RANDOM 89 MG/DL (74-106); MAGNESIUM 2.5 MG/DL (1.5-2.5)
[2018-02-07 01:02] LABS: PROTHROMBIN TIME - PATIENT 9.8 SEC (9.8-11.6)
[2018-02-07 01:03] LABS: GLOMERULAR FILTRATION RATE 34 ML/MIN (>89)
[2018-02-07 01:08] LABS: TROPONIN I LESS THAN 0.02 NG/ML (0.02-0.05)
--- NOTE | 2018-02-07 02:12 | RADRPT ---
EXAM DATE: 02/07/2018 2:06 AM EDT AGE/SEX: 67 years / Female INDICATIONS: Right shoulder pain with a bruise. CLINICAL DATA: This is the patient's initial encounter. Patient reports that signs and symptoms have been present for 1 day and indicates a pain score of 2/10. MEDICAL/SURGICAL HISTORY: Arthritis. Asthma. Carcinoma, uterine. High Cholesterol. COPD. D iabetes. DVT. Glaucoma. Gout. Hypertension. Tonsillectomy. Tubal ligation. Total knee replacem ent, right. Pacemaker. COMPARISON: [facility], HUMERUS RIGHT (MIN 2VWS), 02/06/2018. . No external comparison. FINDINGS: There is spontaneous flow documented in the brachial, basilic, cephalic, axillary, and subclavian vei ns. The vessels are compressible and augmentation response is documented. No filling defects are se en. The flow is phasic with respiration. Direction of flow in the jugular vein is caudal. CONCLUSION: 1. Negative study. No venous thrombosis of the right upper extremity. No fluid collection demonstrat ed. Electronically signed by: Jarrod Quick MD 02/07/2018 2:10 AM EDT
[2018-02-07] MEDS ORDERED: SODIUM CHLORID 0.9% 500 ML INJ 500 ML IV ONE (02:15)
[2018-02-07 03:15] VITALS: BP 128/64; PULSE 55; RESP 18; O2SAT 97
[2018-02-07 03:25] LABS: BILIRUBIN, URINE NEG (NEG); BLOOD, URINE NEG (NEG); GLUCOSE,URINE NEG (NEG); KETONE, URINE NEG (NEG); NITRITE,URINE NEG (NEG); PH, URINE 5.5 (5.0-8.5); URINE COLOR YELLOW (YELLW/STRAW); URINE LEUKOCYTE ESTERASE NEG (NEG)
[2018-02-07 03:31] LABS: RBC, URINE 0-3 /hpf (0-3); SQUAMOUS EPITHELIAL CELL URINE 0-5 /hpf (0-5); WBC, URINE 0-2 /hpf (0-5)
[2018-02-07 05:50] VITALS: BP 131/64; PULSE 62; RESP 18; O2SAT 97
--- NOTE | 2018-02-07 13:54 | EKG ---
Date Performed: 02/07/2018 Time Performed: 00:11:24 PTAGE: 67 years EKG: Sinus rhythm NORMAL ECG Compared to PREVIOUS TRACING , axis is more vertical. ST-T changes have improved. Criteria for LVH is no longer present. PREVIOUS TRACIN10/27/2017 23.25 DOCTOR: Mahendra Knox Interpretating Date/Time 02/07/2018 13:52:51
[2018-02-16] MEDS ORDERED: PERC5TAB12 PO (14:53)
[2018-02-16] MEDS ORDERED: NOVOINJ3 SQ (14:53)
== END 2018-02-07 05:58 | disposition home or self-care (01) ==
LOC: PHED 22:06
DX: M75.50 Bursitis of unspecified shoulder (principal); S40.021A Contusion of right upper arm, initial encounter; X58.XXXA Exposure to other specified factors, initial encounter; N28.9 Disorder of kidney and ureter, unspecified; R07.89 Other chest pain; E11.40 Type 2 diabetes mellitus with diabetic neuropathy, unspecified; E03.9 Hypothyroidism, unspecified; I10 Essential (primary) hypertension; Z86.718 Personal history of other venous thrombosis and embolism
CPT/HCPCS: 71046; 73060; 80048; 81001; 82550; 83735; 84484; 85025; 85610; 85730; 93005; 93971; 96361; 96374; 99285; J1885; J7040

== ENCOUNTER 2018-02-13 12:40 | Emergency (ER) | payer MEDICARE, MEDICAID ==
[~2018-02-13] VITALS: Ht 165.1 cm; Wt 139.0 kg
[~2018-02-13 12:40] MED LIST changes: -ASPI81TA23 PO; -MEDR4PAK PO; -OMEG100010 P-ARTICULR; -XARE15TA PO
[2018-02-13 12:47] VITALS: BP 135/62; PULSE 61; RESP 18; TEMP 98.3; O2SAT 99
--- NOTE | 2018-02-13 13:00 | PD ---
HPI Chief Complaint: Pain: Acute or Chronic Time Seen by Provider: 12:51 Travel History International Travel<30 days: No Contact w/Intl Traveler<30days: No Traveled to known affect area: No History of Present Illness HPI 67-year-old female with a history of diabetic neuropathy and carpal tunnel syndrome of the right wrist presents emergency department complaining of left wrist and hand pain for approximately 3 weeks. Says that she presented to the emergency department approximately 1 week ago and was given steroids, cortisone cream, and antibiotics but the pain persists. Says that pain did improve somewhat but continues to have significant pain. She is concerned because she notes some swelling of the fingers. Says that her pain is worse with picking things up, decreases somewhat with rest. Her pain is moderate in severity and nonradiating, aching and throbbing. Denies numbness or tingling of the extremity. Denies trauma. Denies fevers or chills. PFSH Past Medical History Hx Anticoagulant Therapy: Yes Arthritis: Yes Asthma: Yes Anxiety: Yes Depression: Yes Heart Rhythm Problems: No Cancer: Yes (uterine?) Cardiovascular Problems: Yes (HTN) High Cholesterol: Yes Chemotherapy: No Chest Pain: Yes Congestive Heart Failure: No COPD: Yes Diabetes: Yes Diminished Hearing: No Deep Vein Thrombosis: Yes Endocrine: Yes Gastrointestinal Disorders: Yes (CONSTIPATION, recent bloody stools) Glaucoma: Yes Gout: Yes Genitourinary: No Hepatitis: No Hiatal Hernia: No Hypertension: Yes Immune Disorder: No Implanted Vascular Access Dvce: Yes Musculoskeletal: Yes ( LEFT LEG PAIN WHEN WALKING, pain right ankle, arthritis) Neurologic: Yes (numbness in hand and feet, diabetic neuropathy) Psychiatric: Yes (DEPRESSION) Reproductive: Yes (FIBROIDS) Respiratory: Yes (Sleep apnea ) Immunizations Current: Yes Radiation Therapy: No Sleep Apnea: Yes Thyroid Disease: Yes (pt sts thyroid problem but not on medication) ?: Not Menopausal: Yes Tubal Ligation: Yes Past Surgical History Abdominal Surgery: Yes (LAPAROSCOPY) AICD: No Body Medical Devices: RIGHT KNEE Cardiac Surgery: No Ear Surgery: No Endocrine Surgery: No Eye Surgery: Yes (BILATERAL CATARACTS) Genitourinary Surgery: No Gynecologic Surgery: Yes (FIBROID , TUBAL LIGATION, HYSTERECTOMY) Hysterectomy: Yes Joint Replacement: Yes (RIGHT KNEE) Neurologic Surgery: No Oral Surgery: Yes (tonsillectomy) Pacemaker: No Thoracic Surgery: No Other Surgery: Yes ( ) Social History Alcohol Use: Yes (RARELY) Tobacco Use: No Substance Use: No Allergies-Medications (Allergen,Severity, Reaction): Coded Allergies: Iodinated Contrast- Oral and IV Dye (Verified Allergy, Severe, Swelling, ) Reported Meds & Prescriptions Reported Meds & Active Scripts Active Keflex (Cephalexin) 500 Mg Capsule 500 Mg PO Q8H 10 Days Hydrocortisone Topical 1% Cream 1 Applic TOPICAL BID 10 Days Protonix (Pantoprazole Sodium) 40 Mg Tab 40 Mg PO DAILY Reported Eszopiclone 2 Mg Tab 2 Mg PO HS PRN Basaglar Kwikpen (Insulin Glargine) 100 Unit/Ml Pen 1 Units SQ DAILY Baclofen 10 Mg Tab 10 Mg PO Q8HR Furosemide 20 Mg Tab 20 Mg PO DAILY Proair Hfa 8.5 GM Inh (Albuterol Sulfate) 90 Mcg/Act Aer 2 Puff INH Q6H PRN 108 mcg/actuation Hydrocodone-Acetaminophen 10-325 mg Tab 1 Tab PO Q6H PRN Sertraline (Sertraline HCl) 50 Mg Tab 50 Mg PO DAILY Metoprolol Tartrate 25 Mg Tab 25 Mg PO DAILY Lisinopril 40 Mg Tab 40 Mg PO DAILY Starlix (Nateglinide) 120 Mg Tab 120 Mg PO TIDAC Lantus Inj (Insulin Glargine) 1,000 Unit/10 Ml Vial 35 Units SQ HS Allopurinol 300 Mg Tab 300 Mg PO DAILY Atorvastatin (Atorvastatin Calcium) 20 Mg Tab 20 Mg PO DAILY Gabapentin 300 Mg Cap 300 Mg PO BID Review of Systems Except as stated in HPI: all other systems reviewed are Neg Physical Exam Narrative GENERAL: Well-nourished, well-developed patient, in NAD SKIN: Focused skin assessment warm/dry. No rashes or lesions. HEAD: Normocephalic. Atraumatic. EYES: No scleral icterus. No injection or drainage. PERRLA, EOMI THROAT: No pharyngeal injection, exudates, or tonsillar hypertrophy. Airway is patent. NECK: Supple, trachea midline. No JVD or lymphadenopathy. No meningismus. CARDIOVASCULAR: Regular rate and rhythm without murmurs, gallops, or rubs. RESPIRATORY: Breath sounds equal bilaterally. No accessory muscle use. No wheezes, rales, or rhonchi MUSCULOSKELETAL: No cyanosis, or edema. left hand and wrist-significant atrophy of the musculature when compared to the right, particularly in the hypo-thenar prominence. Tenderness palpation of the fingers and hand. No erythema. Of note, patient has multiple pinpoints to fourth and fifth finger pads, consistent with patient's history of multiple blood glucose checks. BACK: Nontender without obvious deformity. No CVA tenderness. Data Data Last Documented VS Vital Signs Date Time Temp Pulse Resp B/P (MAP) Pulse Ox O2 Delivery O2 Flow Rate FiO2 02/13/18 12:47 98.3 61 18 135/62 (86) 99 MDM Medical Decision Making Medical Screen Exam Complete: Yes Emergency Medical Condition: Yes Differential Diagnosis Left wrist carpal tunnel syndrome, neuropathy, neuralgia, uncontrolled diabetes mellitus Narrative Course 67-year-old female with a history of diabetic neuropathy and carpal tunnel syndrome of the right wrist presents emergency department complaining of left wrist and hand pain for approximately 3 weeks. Says that she presented to the emergency department approximately 1 week ago and was given steroids, cortisone cream, and antibiotics but the pain persists. Says that pain did improve somewhat but continues to have significant pain. She is concerned because she notes some swelling of the fingers. Says that her pain is worse with picking things up, decreases somewhat with rest. Her pain is moderate in severity and nonradiating, aching and throbbing. Denies numbness or tingling of the extremity. Denies trauma. Denies fevers or chills. Vital signs are stable. Physical exam findings consistent with neuropathy versus neuralgia versus carpal tunnel syndrome of the left hand and wrist. Patient has weakness and tenderness palpation of the palm and somewhat to the fingers. She has sensation intact. Cap refill less than 3 seconds. Patient will be discharged prednisone. Advised that she should follow-up with her primary care physician for further evaluation. Consider neurology or hand specialist for evaluation. Return for worsening or persistent symptoms. Diagnosis Primary Impression: Neuropathy Referrals: Hand Surgeon Neurologist Patient Instructions: Carpal Tunnel Syndrome (GEN), Carpal Tunnel Syndrome Exercises (GEN), General Instructions Additional Instructions: I recommend a wrist splint to reduce her symptoms. I highly recommend he follow-up with her primary care physician for possible referral to a hand specialist or neurologist. Disposition: 01 DISCHARGE HOME Condition: Stable Mai Miller Feb 13, 2018 13:00
[2018-02-13] MEDS ORDERED: PRED10 PO (13:05)
[2018-02-16] MEDS ORDERED: NOVOINJ3 SQ (14:53)
[2018-02-16] MEDS ORDERED: PERC5TAB12 PO (14:53)
== END 2018-02-13 13:31 | disposition home or self-care (01) ==
LOC: PHEFT 12:40
DX: E11.40 Type 2 diabetes mellitus with diabetic neuropathy, unspecified (principal); G56.01 Carpal tunnel syndrome, right upper limb; F41.9 Anxiety disorder, unspecified; F32.9 Major depressive disorder, single episode, unspecified; I10 Essential (primary) hypertension; E78.00 Pure hypercholesterolemia, unspecified; J44.9 Chronic obstructive pulmonary disease, unspecified; E07.9 Disorder of thyroid, unspecified; Z86.718 Personal history of other venous thrombosis and embolism
CPT/HCPCS: 99282; L3908

== ENCOUNTER 2018-02-16 19:21 | Observation (INO) | payer MEDICARE, MEDICAID ==
[~2018-02-16] VITALS: Ht 165.1 cm; Wt 140.7 kg
[~2018-02-16 19:21] MED LIST changes: +NOVOINJ3 SQ; +PERC5TAB12 PO; +PRED10 PO
[2018-02-16 19:29] VITALS: BP 136/61; PULSE 63; RESP 20; TEMP 97.8; O2SAT 98
--- NOTE | 2018-02-16 20:04 | PD ---
HPI Chief Complaint: Diabetic Time Seen by Provider: 19:59 Travel History International Travel<30 days: No Contact w/Intl Traveler<30days: No Traveled to known affect area: No History of Present Illness HPI Patient states that she is on a high-dose of steroid, prednisone 50 mg daily, for treatment of her arthritis. I asked the patient again for more information , as this seems a very strange reason to place him on such a high-dose of prednisone. Patient denied having any history of lupus or any other type of inflammatory disorder. Also denied having any bronchospasm or wheezing or asthma active history presently. Patient is also not on any antibiotics currently, all other medications are within her usual and are not changed or needle. Patient denies any alleviating or aggravating factors. Patient denies any associated factors such as fever, cough, shortness of breath, rash, headache , flank pain, abdominal pain, vomiting or diarrhea. However patient did complain of polyuria polydipsia and slight nausea but without any active vomiting or diarrhea, she is also feeling slightly lightheaded with changes in position, such as going from sitting to standing. States allergy to IV contrast and oral contrast Past medical history significant for thyroid disease however she is not on medications, glaucoma, overactive lenses, tonsillectomy, diabetic neuropathy of hands and feet, hypercholesterolemia, hypertension, DVT, COPD, fibroid uterus status post hysterectomy and tubal ligation previously, stage III kidney disease , gout, depression, diabetes, anxiety, claustrophobia, PFSH Past Medical History Hx Anticoagulant Therapy: Yes Arthritis: Yes Asthma: Yes Anxiety: Yes Depression: Yes Heart Rhythm Problems: No Cancer: Yes (uterine?) Cardiovascular Problems: Yes High Cholesterol: Yes Chemotherapy: No Chest Pain: Yes Congestive Heart Failure: No COPD: Yes Diabetes: Yes Diminished Hearing: No Deep Vein Thrombosis: Yes Endocrine: Yes Gastrointestinal Disorders: Yes (CONSTIPATION, recent bloody stools) Glaucoma: Yes Gout: Yes Genitourinary: No Hepatitis: No Hiatal Hernia: No Hypertension: Yes Immune Disorder: No Implanted Vascular Access Dvce: Yes Musculoskeletal: Yes ( LEFT LEG PAIN WHEN WALKING, pain right ankle, arthritis) Neurologic: Yes (numbness in hand and feet, diabetic neuropathy) Psychiatric: Yes (DEPRESSION) Reproductive: Yes (FIBROIDS) Respiratory: Yes (Sleep apnea ) Immunizations Current: Yes Radiation Therapy: No Sleep Apnea: Yes Thyroid Disease: Yes (pt sts thyroid problem but not on medication) Menopausal: Yes Tubal Ligation: Yes Past Surgical History Abdominal Surgery: Yes (LAPAROSCOPY) AICD: No Body Medical Devices: RIGHT KNEE Cardiac Surgery: No Ear Surgery: No Endocrine Surgery: No Eye Surgery: Yes (BILATERAL CATARACTS) Genitourinary Surgery: No Gynecologic Surgery: Yes (FIBROID , TUBAL LIGATION, HYSTERECTOMY) Hysterectomy: Yes Joint Replacement: Yes (RIGHT KNEE) Neurologic Surgery: No Oral Surgery: Yes (tonsillectomy) Pacemaker: No Thoracic Surgery: No Other Surgery: Yes ( ) Social History Alcohol Use: Yes (RARELY) Tobacco Use: No Substance Use: No Allergies-Medications (Allergen,Severity, Reaction): Coded Allergies: Iodinated Contrast- Oral and IV Dye (Verified Allergy, Severe, Swelling, ) Reported Meds & Prescriptions Reported Meds & Active Scripts Active Prednisone 10 Mg Tab 10 Mg PO DAILY 7 Days Keflex (Cephalexin) 500 Mg Capsule 500 Mg PO Q8H 10 Days Protonix (Pantoprazole Sodium) 40 Mg Tab 40 Mg PO DAILY Reported Novolog Flexpen Inj (Insulin Aspart) 300 Unit/3 Ml Pen 1-15 Units SQ TID- SLIDING SCALE Percocet (Oxycodone-Acetaminophen) 5-325 mg Tab 1 Tab PO TID PRN Eszopiclone 2 Mg Tab 2 Mg PO HS PRN Basaglar Kwikpen (Insulin Glargine) 100 Unit/Ml Pen 31 Units SQ HS Baclofen 10 Mg Tab 10 Mg PO BID Furosemide 20 Mg Tab 20 Mg PO DAILY Proair Hfa 8.5 GM Inh (Albuterol Sulfate) 90 Mcg/Act Aer 2 Puff INH Q6H PRN 108 mcg/actuation Sertraline (Sertraline HCl) 50 Mg Tab 50 Mg PO DAILY Metoprolol Tartrate 25 Mg Tab 25 Mg PO DAILY Lisinopril 40 Mg Tab 40 Mg PO DAILY Starlix (Nateglinide) 120 Mg Tab 120 Mg PO TIDAC Allopurinol 300 Mg Tab 300 Mg PO DAILY Atorvastatin (Atorvastatin Calcium) 20 Mg Tab 20 Mg PO DAILY Gabapentin 300 Mg Cap 300 Mg PO BID Review of Systems General / Constitutional: No: Fever Eyes: No: Visual changes HENT: No: Headaches Cardiovascular: No: Chest Pain or Discomfort Respiratory: No: Shortness of Breath Gastrointestinal: No: Abdominal Pain Genitourinary: No: Dysuria Musculoskeletal: No: Pain Skin: No Rash Neurologic: No: Weakness Psychiatric: No: Depression Endocrine: Positive: Other (Hyperglycemia) Hematologic/Lymphatic: No: Easy Bruising Physical Exam Narrative GENERAL: SKIN: Warm and dry. HEAD: Atraumatic. Normocephalic. EYES: Pupils equal and round. No scleral icterus. No injection or drainage. ENT: No nasal bleeding or discharge. Mucous membranes pink and moist. NECK: Trachea midline. No JVD. CARDIOVASCULAR: Regular rate and rhythm. RESPIRATORY: No accessory muscle use. Clear to auscultation. Breath sounds equal bilaterally. GASTROINTESTINAL: Abdomen soft, non-tender, nondistended. MUSCULOSKELETAL: Extremities without clubbing, cyanosis, or edema. No obvious deformities. NEUROLOGICAL: Awake and alert. No obvious cranial nerve deficits. Motor grossly within normal limits. Five out of 5 muscle strength in the arms and legs. Normal speech. PSYCHIATRIC: Appropriate mood and affect; insight and judgment normal. Data Data Last Documented VS Vital Signs Date Time Temp Pulse Resp B/P (MAP) Pulse Ox O2 Delivery O2 Flow Rate FiO2 02/16/18 21:36 53 18 153/63 (93) 95 Room Air 02/16/18 19:29 97.8 Orders Orders Complete Blood Count With Diff (02/16/18 20:04) Comprehensive Metabolic Panel (02/16/18 20:04) Lipase (02/16/18 20:04) Urinalysis - C+S If Indicated (02/16/18 20:04) Iv Access Insert/Monitor (02/16/18 20:04) Ecg Monitoring (02/16/18 20:04) Oximetry (02/16/18 20:04) Sodium Chloride 0.9% Flush (Ns Flush) (02/16/18 20:15) Chest, Single Ap (02/16/18 20:04) Blood Gas Venous (Vbg) (02/16/18 20:04) Electrocardiogram (02/16/18 20:04) Troponin I (02/16/18 20:04) Ondansetron Odt (Zofran Odt) (02/16/18 20:45) Insulin Human Regular Inj (Novolin R Inj (02/16/18 21:30) Beta Hydroxybutyrate (Acetone) (02/16/18 20:56) Admit Order (Ed Use Only) (02/16/18 21:40) Labs Laboratory Tests Test 02/16/18 20:56 02/16/18 21:05 02/16/18 21:13 Blood Urea Nitrogen 36 MG/DL Creatinine 1.70 MG/DL Random Glucose 531 MG/DL Total Protein 8.3 GM/DL Albumin 3.3 GM/DL Calcium Level 8.8 MG/DL Alkaline Phosphatase 122 U/L Aspartate Amino Transf (AST/SGOT) 31 U/L Alanine Aminotransferase (ALT/SGPT) 31 U/L Total Bilirubin 0.4 MG/DL Sodium Level 133 MEQ/L Potassium Level 6.3 MEQ/L Chloride Level 105 MEQ/L Carbon Dioxide Level 21.5 MEQ/L Anion Gap 7 MEQ/L Estimat Glomerular Filtration Rate 36 ML/MIN Troponin I LESS THAN 0.02 NG/ML Lipase 87 U/L B-Hydroxybutyrate 0.11 MMOL/L Blood Gas Puncture Site PERIPHERAL Blood Gas Patient Temperature 98.6 Venous Blood pH 7.29 Venous Blood Partial Pressure CO2 46 mmHg Venous Blood Partial Pressure O2 54 mmHg Venous Blood HCO3 22 mmol/L Venous Blood Oxygen Saturation 83 % Venous Blood Oxygen Content 13.7 Vol % Venous Blood Base Excess -4.0 mmol/L Oxygen Delivery Device ROOM AIR Blood Gas Inspired Oxygen 21 % White Blood Count 10.3 TH/MM3 Red Blood Count 4.35 MIL/MM3 Hemoglobin 11.7 GM/DL Hematocrit 35.5 % Mean Corpuscular Volume 81.6 FL Mean Corpuscular Hemoglobin 26.9 PG Mean Corpuscular Hemoglobin Concent 32.9 % Red Cell Distribution Width 16.4 % Platelet Count 175 TH/MM3 Mean Platelet Volume 10.4 FL Neutrophils (%) (Auto) 80.1 % Lymphocytes (%) (Auto) 14.0 % Monocytes (%) (Auto) 4.3 % Eosinophils (%) (Auto) 0.5 % Basophils (%) (Auto) 1.1 % Neutrophils # (Auto) 8.3 TH/MM3 Lymphocytes # (Auto) 1.4 TH/MM3 Monocytes # (Auto) 0.4 TH/MM3 Eosinophils # (Auto) 0.1 TH/MM3 Basophils # (Auto) 0.1 TH/MM3 CBC Comment DIFF FINAL Differential Comment MDM Medical Decision Making Medical Screen Exam Complete: Yes Emergency Medical Condition: Yes Medical Record Reviewed: Yes Interpretation(s) Normal sinus rhythm, 59 bpm, normal intervals, slight baseline motion artifact, but no evidence of any ST elevation pattern Differential Diagnosis Hyperglycemia likely secondary to steroid use,, rule out infectious cause, rule out electrolyte abnormalities rule out DKA Narrative Course CBC does not show any leukocytosis, no anemia, no left shift Venous blood gas pH 7.29 was decreased Electrolytes showed mild hemolysis, and showed electrolyte abnormalities of sodium 133, potassium 6.3, no anion gap with a bicarb of 21, BUN is 36 creatinine 1.7 and GFR 36, random glucose 531, first set of cardiac enzymes are negative, normal liver functions and pancreatic functions Beta hydroxybutyrate is normal, which is consistent with no DKA and hyperglycemia as the final diagnosis Chest x-ray read by radiologist as no acute findings, prominent epicardial fat pads Diagnosis Primary Impression: Steroid-induced hyperglycemia Admitting Information Admitting Physician Requests: Observation Bill Justice MD Feb 16, 2018 20:04
[2018-02-16] MEDS ORDERED: SODIUM CHLORIDE 0.9% FLUSH 10 ML FLUSH IV FLUSH PRN ×2 (20:15→21:45)
--- NOTE | 2018-02-16 20:34 | RADRPT ---
EXAM DATE: 02/16/2018 8:23 PM EDT AGE/SEX: 67 years / Female INDICATIONS: Shortness of breath. CLINICAL DATA: This is the patient's initial encounter. Patient reports that signs and symptoms have been present for 1 day and indicates a pain score of 0/10. MEDICAL/SURGICAL HISTORY: Hypertension. Chronic obstructive pulmonary disease. Asthma. None. COMPARISON: [facility], CT ABDOMEN & PELVIS W/O CONTRAST, 02/16/2017. . FINDINGS: A single AP view of the chest demonstrates the lungs to be symmetrically aerated without evidence of mass, infiltrate or effusion. The cardiomediastinal contours are mildly prominent. Osseous structure s are intact. CONCLUSION: No acute findings. Prominent epicardial fat pads. Electronically signed by: Todd Reeder MD 02/16/2018 8:32 PM EDT
[2018-02-16] MEDS ORDERED: ONDANSETRON ODT 4 MG TAB PO ONE (20:45)
[2018-02-16 21:00] VITALS: RESP 18; O2SAT 95
[2018-02-16 21:12] LABS: CHLORIDE 105 MEQ/L (98-107); SODIUM (NA) 133 MEQ/L (136-145)
[2018-02-16 21:16] LABS: ALBUMIN 3.3 GM/DL (3.4-5.0); BICARBONATE 21.5 MEQ/L (21.0-32.0); BLOOD UREA NITROGEN 36 MG/DL (7-18); CALCIUM 8.8 MG/DL (8.5-10.1)
[2018-02-16 21:19] LABS: ALT (GPT) 31 U/L (10-53); AST (GOT) 31 U/L (15-37); GLOMERULAR FILTRATION RATE 36 ML/MIN (>89)
[2018-02-16 21:19] LABS: AUTOMATED NEUTROPHIL # 8.3 TH/MM3 (1.8-7.7); BASOPHIL # 0.1 TH/MM3 (0-0.2); BASOPHIL % 1.1 % (0.0-2.0); EOSINOPHIL # 0.1 TH/MM3 (0-0.4); EOSINOPHIL % 0.5 % (0.0-4.0); HEMATOCRIT 35.5 % (35.0-46.0); HEMOGLOBIN 11.7 GM/DL (11.6-15.3); LYMPHOCYTE # 1.4 TH/MM3 (1.0-4.8); MEAN CELL VOLUME 81.6 FL (80.0-100.0); MEAN CORPUSCULAR HEMOGLOBIN 26.9 PG (27.0-34.0); MEAN CORPUSCULAR HGB CONC 32.9 % (32.0-36.0); MEAN PLATELET VOLUME 10.4 FL (7.0-11.0); MONO % 4.3 % (0.0-8.0); MONOCYTE # 0.4 TH/MM3 (0-0.9); NEUT % 80.1 % (16.0-70.0); PLATELET COUNT 175 TH/MM3 (150-450); RED BLOOD COUNT 4.35 MIL/MM3 (4.00-5.30); RED CELL DISTRIBUTION WIDTH 16.4 % (11.6-17.2); WHITE BLOOD COUNT 10.3 TH/MM3 (4.0-11.0)
[2018-02-16 21:21] LABS: TOTAL BILIRUBIN ADULT 0.4 MG/DL (0.2-1.0); TOTAL PROTEIN 8.3 GM/DL (6.4-8.2)
[2018-02-16 21:27] LABS: ALKALINE PHOSPHATASE 122 U/L (45-117); TROPONIN I LESS THAN 0.02 NG/ML (0.02-0.05)
[2018-02-16 21:28] LABS: GLUCOSE,RANDOM 531 MG/DL (74-106)
[2018-02-16] MEDS ORDERED: INSULIN HUMAN REGULAR 1,000 UNITS/10 ML VIAL IV PUSH ONE (21:30)
[2018-02-16 21:36] VITALS: BP 153/63; PULSE 53; RESP 18; O2SAT 95
[2018-02-16] MEDS ORDERED: LEVS0.124 SL (21:37)
[2018-02-16] MEDS ORDERED: MAGNESIUM HYDROXIDE SUSP 30 ML CUP PO PRN (21:45)
[2018-02-16] MEDS ORDERED: NALOXONE HCL 0.4 MG/ML AMP IV PUSH PRN (21:45)
[2018-02-16] MEDS ORDERED: BISACODYL 10 MG SUPP RECTAL PRN (21:45)
[2018-02-16] MEDS ORDERED: DEXTROSE 50% IN WATER 50 ML VIAL(D50) IV PUSH PRN (21:45)
[2018-02-16] MEDS ORDERED: LACTULOSE SYRUP 20 GM/30 ML CUP PO PRN (21:45)
[2018-02-16] MEDS ORDERED: GLUCAGON 1 MG/ML VIAL OTHER PRN (21:45)
[2018-02-16] MEDS ORDERED: ONDANSETRON HCL 4 MG/2 ML VIAL IVP PRN (21:45)
[2018-02-16] MEDS ORDERED: SENNOSIDES 8.6 MG TAB PO PRN (21:45)
[2018-02-16] MEDS ORDERED: ACETAMINOPHEN 325 MG TAB PO PRN (21:45)
[2018-02-16] MEDS: HEPARIN SODIUM - SQ 10,000 UNITS/ML VIAL SQ SCH (22:11)
[2018-02-16] MEDS: SODIUM CHLOR 0.9% 1000 ML INJ 1,000 ML IV SCH (22:11)
[2018-02-16 23:00] VITALS: BP 135/50; PULSE 56; PULSE 58; RESP 24; TEMP 97.8; O2SAT 97
[2018-02-16 23:54] LABS: BILIRUBIN, URINE NEG (NEG); BLOOD, URINE NEG (NEG); GLUCOSE,URINE 1000 OR GREATER mg/dL (NEG); KETONE, URINE NEG (NEG); NITRITE,URINE NEG (NEG); URINE COLOR YELLOW (YELLW/STRAW); URINE LEUKOCYTE ESTERASE NEG (NEG)
[2018-02-16 23:57] LABS: RBC, URINE 0-2 /hpf (0-3); SQUAMOUS EPITHELIAL CELL URINE 0-5 /hpf (0-5); WBC, URINE 0-2 /hpf (0-5)
[2018-02-17] VITALS (15 sets, daily range): BP systolic 91–149; BP diastolic 44–62; PULSE 54–66; RESP 16–57; TEMP 97.6–98.3; O2SAT 90–100
[2018-02-17] MEDS: oxyCODONE/ACETAMINOPHEN 5 MG/325 MG TAB PO PRN ×2 (00:43→08:38)
[2018-02-17] MEDS ORDERED: CHLORHEXIDINE GLUCONATE 2 % 1 PACK (2 CLOTHS)(extra cloths) TOPICAL PRN (00:45)
[2018-02-17] MEDS ORDERED: CHLORHEXIDINE GLUCONATE 2 % 1 PACK (2 CLOTHS)(taper/protocol) TOPICAL SCH (04:00)
[2018-02-17 04:56] LABS: AUTOMATED NEUTROPHIL # 8.4 TH/MM3 (1.8-7.7); BASOPHIL # 0.1 TH/MM3 (0-0.2); BASOPHIL % 0.5 % (0.0-2.0); EOSINOPHIL # 0.2 TH/MM3 (0-0.4); EOSINOPHIL % 1.7 % (0.0-4.0); HEMATOCRIT 34.4 % (35.0-46.0); LYMPH % 20.8 % (9.0-44.0); LYMPHOCYTE # 2.4 TH/MM3 (1.0-4.8); MEAN CELL VOLUME 80.7 FL (80.0-100.0); MEAN CORPUSCULAR HEMOGLOBIN 25.8 PG (27.0-34.0); MEAN PLATELET VOLUME 11.6 FL (7.0-11.0); MONO % 4.7 % (0.0-8.0); MONOCYTE # 0.5 TH/MM3 (0-0.9); NEUT % 72.3 % (16.0-70.0); PLATELET COUNT 155 TH/MM3 (150-450); RED BLOOD COUNT 4.27 MIL/MM3 (4.00-5.30); RED CELL DISTRIBUTION WIDTH 15.3 % (11.6-17.2); WHITE BLOOD COUNT 11.6 TH/MM3 (4.0-11.0)
[2018-02-17 05:24] LABS: BICARBONATE 23.2 MEQ/L (21.0-32.0); CALCIUM 8.5 MG/DL (8.5-10.1); CREATININE 1.3 MG/DL (0.50-1.00)
[2018-02-17] MEDS: HEPARIN SODIUM - SQ 10,000 UNITS/ML VIAL SQ SCH (05:26)
[2018-02-17] MEDS: INSULIN ASPART SUPPLEMENTAL SCALE SQ SCH ×2 (08:17→11:55)
[2018-02-17] MEDS: SODIUM CHLOR 0.9% 1000 ML INJ 1,000 ML IV SCH (08:18)
[2018-02-17] MEDS ORDERED: SODIUM CHLORIDE 0.9% FLUSH 10 ML FLUSH IV FLUSH SCH (09:00)
[2018-02-17] MEDS ORDERED: DOCUSATE SODIUM 50 MG/SENNA 8.6 MG TAB PO SCH (09:00)
--- NOTE | 2018-02-17 11:14 | HHI.HP ---
HPI Service [facility] Primary Care Physician Martin Painter, DO Admission Diagnosis HYPERGLYCEMIA, EARLY DKA Diagnoses: (1) Steroid-induced hyperglycemia Diagnosis: Principal (2) Acute renal failure superimposed on stage 3 chronic kidney disease Diagnosis: Principal (3) Hyperkalemia Diagnosis: Principal Chief Complaint: Elevated glucose Travel History International Travel<30 Days: No Contact w/Intl Traveler <30 Da: No Traveled to Known Affected Are: No History of Present Illness 67-year-old female with known history of hypertension, hyperlipidemia, chronic kidney disease stage III, gastrointestinal stromal tumor, obesity who presented the hospital because of uncontrolled diabetes. Patient states that she has had last few weeks being treated for left hand pain with neuropathy. States that she had been to the emergency department at least 2 times where she been diagnosed prednisone. Patient just returned back to the emergency department 3 days ago and was given higher dose of prednisone. She states that when she was at home she noticed that her glucose levels were uncontrolled. She checked her blood sugar was 569 and because of that she came to emergency department for evaluation. Patient did have symptoms of polydipsia, polyuria, polyphagia. Workup emergency department indicated hyperglycemia with mild acidosis. Beta hydroxybutyrate was negative. However patient did have significant hyperkalemia which could be related to patient's chronic kidney disease with use of lisinopril. Patient is doing much better today. Her diabetes is under better control. She is been running in the 200s and only has received 8 units of insulin since being hospitalized. Patient is very eager to go home. She does have a scheduled surgery tomorrow for her stomach cancer. Review of Systems Endocrine: COMPLAINS OF: Polydipsia, Polyuria, Polyphagia Except as stated in HPI: all other systems reviewed are Neg Past Family Social History Past Medical History Hypertension Hyperlipidemia Chronic kidney disease stage III Diabetes History uterine cancer status post hysterectomy History of DVT Depression Gastrointestinal stromal tumor Past Surgical History Hysterectomy Carpal tunnel release Left knee arthroplastic surgery Right knee arthroscopic surgery Endoscopy Reported Medications Reported Meds & Active Scripts Active Prednisone 10 Mg Tab 10 Mg PO DAILY 7 Days Keflex (Cephalexin) 500 Mg Capsule 500 Mg PO Q8H 10 Days Protonix (Pantoprazole Sodium) 40 Mg Tab 40 Mg PO DAILY Reported Novolog Flexpen Inj (Insulin Aspart) 300 Unit/3 Ml Pen 1-15 Units SQ TID- SLIDING SCALE Percocet (Oxycodone-Acetaminophen) 5-325 mg Tab 1 Tab PO TID PRN Eszopiclone 2 Mg Tab 2 Mg PO HS PRN Basaglar Kwikpen (Insulin Glargine) 100 Unit/Ml Pen 31 Units SQ HS Baclofen 10 Mg Tab 10 Mg PO BID Furosemide 20 Mg Tab 20 Mg PO DAILY Proair Hfa 8.5 GM Inh (Albuterol Sulfate) 90 Mcg/Act Aer 2 Puff INH Q6H PRN 108 mcg/actuation Sertraline (Sertraline HCl) 50 Mg Tab 50 Mg PO DAILY Metoprolol Tartrate 25 Mg Tab 25 Mg PO DAILY Lisinopril 40 Mg Tab 40 Mg PO DAILY Starlix (Nateglinide) 120 Mg Tab 120 Mg PO TIDAC Allopurinol 300 Mg Tab 300 Mg PO DAILY Atorvastatin (Atorvastatin Calcium) 20 Mg Tab 20 Mg PO DAILY Gabapentin 300 Mg Cap 300 Mg PO BID Allergies: Coded Allergies: Iodinated Contrast- Oral and IV Dye (Verified Allergy, Severe, Swelling, ) Family History Family history reviewed and significant for diabetes, sister had cancer, patient does not know what kind Social History Patient denies any tobacco or illicit drug use. Does drink alcohol occasionally Physical Exam Vital Signs Vital Signs Date Time Temp Pulse Resp B/P (MAP) Pulse Ox O2 Delivery O2 Flow Rate FiO2 02/17/18 10:00 56 02/17/18 09:51 54 19 91/52 (65) 100 02/17/18 08:51 58 19 142/58 (86) 100 02/17/18 08:00 58 02/17/18 07:51 98.3 56 20 115/51 (72) 100 02/17/18 06:00 58 02/17/18 06:00 54 16 137/46 (76) 97 02/17/18 05:00 54 16 137/46 (76) 97 02/17/18 04:00 97.6 54 21 144/62 (89) 99 02/17/18 04:00 54 02/17/18 03:00 58 26 143/54 (83) 100 02/17/18 02:00 62 29 140/51 (80) 92 02/17/18 02:00 62 02/17/18 01:43 22 02/17/18 01:00 58 57 135/44 (74) 97 02/17/18 00:00 62 02/17/18 00:00 97.9 62 24 139/52 (81) 99 02/16/18 23:00 56 02/16/18 23:00 97.8 58 24 135/50 (78) 97 02/16/18 22:31 02/16/18 21:36 53 18 153/63 (93) 95 Room Air 02/16/18 21:00 18 95 Room Air 02/16/18 20:03 20 98 Room Air 02/16/18 19:29 97.8 63 20 136/61 (86) 98 Physical Exam GENERAL: Well-developed, obese with BMI 51.6, in no acute distress. alert and orientated HEENT: Head is normocephalic without any lesions or masses noted. Facial features are symmetric. Eyes: Pupils equal round reactive to light. Extraocular muscles are intact. Conjunctivae were clear. Oropharyngeal: Pharynx without any erythema edema. Tongue is midline without deviation. Buccal mucosa is moist without any masses or lesions NECK: Supple without any masses. Trachea midline no deviation. No JVD, no bruits are appreciated CARDIAC: Regular rhythm, regular rate. S1/S2 are heard. No murmurs gallops or rubs. LUNGS: Clear to auscultation bilaterally. No wheeze, rhonchi or rales. No use of accessory muscles on inspiration or expiration. ABDOMEN: Soft, nontender. Nondistended. Bowel sounds heard in all 4 quadrants. No organomegaly or masses. Negative rebound, negative guarding EXTREMITIES: No edema, pulses are equal bilaterally. No cyanosis or clubbing NEUROLOGY: Mood and affect appear appropriate. Cranial nerves II through XII grossly intact. Muscle strength 5/5 in upper and lower extremities bilaterally. Deep tendon reflexes are 2+ in upper and lower extremities bilaterally. Laboratory Laboratory Tests Test 02/16/18 20:56 02/16/18 21:05 02/16/18 21:13 02/16/18 23:45 Blood Urea Nitrogen 36 Creatinine 1.70 Random Glucose 531 Total Protein 8.3 Albumin 3.3 Calcium Level 8.8 Alkaline Phosphatase 122 Aspartate Amino Transf (AST/SGOT) 31 Alanine Aminotransferase (ALT/SGPT) 31 Total Bilirubin 0.4 Sodium Level 133 Potassium Level 6.3 Chloride Level 105 Carbon Dioxide Level 21.5 Anion Gap 7 Estimat Glomerular Filtration Rate 36 Troponin I LESS THAN 0.02 Lipase 87 B-Hydroxybutyrate 0.11 Blood Gas Puncture Site PERIPHERAL Blood Gas Patient Temperature 98.6 Venous Blood pH 7.29 Venous Blood Partial Pressure CO2 46 Venous Blood Partial Pressure O2 54 Venous Blood HCO3 22 Venous Blood Oxygen Saturation 83 Venous Blood Oxygen Content 13.7 Venous Blood Base Excess -4.0 Oxygen Delivery Device ROOM AIR Blood Gas Inspired Oxygen 21 White Blood Count 10.3 Red Blood Count 4.35 Hemoglobin 11.7 Hematocrit 35.5 Mean Corpuscular Volume 81.6 Mean Corpuscular Hemoglobin 26.9 Mean Corpuscular Hemoglobin Concent 32.9 Red Cell Distribution Width 16.4 Platelet Count 175 Mean Platelet Volume 10.4 Neutrophils (%) (Auto) 80.1 Lymphocytes (%) (Auto) 14.0 Monocytes (%) (Auto) 4.3 Eosinophils (%) (Auto) 0.5 Basophils (%) (Auto) 1.1 Neutrophils # (Auto) 8.3 Lymphocytes # (Auto) 1.4 Monocytes # (Auto) 0.4 Eosinophils # (Auto) 0.1 Basophils # (Auto) 0.1 CBC Comment DIFF FINAL Differential Comment Urine Color YELLOW Urine Turbidity CLEAR Urine pH 5.0 Urine Specific [place] LESS/EQUAL 1.005 Urine Protein NEG Urine Glucose (UA) 1000 OR GREATER Urine Ketones NEG Urine Occult Blood NEG Urine Nitrite NEG Urine Bilirubin NEG Urine Urobilinogen 0.2 Urine Leukocyte Esterase NEG Urine RBC 0-2 Urine WBC 0-2 Urine Squamous Epithelial Cells 0-5 Urine Bacteria NONE Microscopic Urinalysis Comment CULT NOT INDICATED Test 02/17/18 04:20 02/17/18 04:50 White Blood Count 11.6 Red Blood Count 4.27 Hemoglobin 11.0 Hematocrit 34.4 Mean Corpuscular Volume 80.7 Mean Corpuscular Hemoglobin 25.8 Mean Corpuscular Hemoglobin Concent 32.0 Red Cell Distribution Width 15.3 Platelet Count 155 Mean Platelet Volume 11.6 Neutrophils (%) (Auto) 72.3 Lymphocytes (%) (Auto) 20.8 Monocytes (%) (Auto) 4.7 Eosinophils (%) (Auto) 1.7 Basophils (%) (Auto) 0.5 Neutrophils # (Auto) 8.4 Lymphocytes # (Auto) 2.4 Monocytes # (Auto) 0.5 Eosinophils # (Auto) 0.2 Basophils # (Auto) 0.1 CBC Comment DIFF FINAL Differential Comment Blood Urea Nitrogen 33 Creatinine 1.30 Random Glucose 228 Calcium Level 8.5 Sodium Level 140 Potassium Level 5.1 Chloride Level 111 Carbon Dioxide Level 23.2 Anion Gap 6 Estimat Glomerular Filtration Rate 49 Result Diagram: 02/17/1844902/17/18449 Imaging Last Impressions Chest X-Ray 02/16/182003 Signed Impressions: CONCLUSION: No acute findings. Prominent epicardial fat pads. Caprini VTE Risk Assessment Caprini VTE Risk Assessment: Mod/High Risk (score >= 2) Caprini Risk Assessment Model Point Value = 1 Point Value = 2 Point Value = 3 Point Value = 5 Age 41-60 Minor surgery BMI > 25 kg/m2 Swollen legs Varicose veins or History of unexplained or recurrent spontaneous Oral contraceptives or hormone replacement Sepsis (< 1 month) Serious lung disease, including pneumonia (< 1 month) Abnormal pulmonary function Acute myocardial infarction Congestive heart failure (< 1 month) History of inflammatory bowel disease Medical patient at bed rest Age 61-74 Arthroscopic surgery Major open surgery (> 45 min) Laparoscopic surgery (> 45 min) Malignancy Confined to bed (> 72 hours) Immobilizing plaster cast Central venous access Age >= 75 History of VTE Family history of VTE Factor V Leiden Prothrombin [id number] Lupus anticoagulant Anticardiolipin antibodies Elevated serum homocysteine Heparin-induced thrombocytopenia Other congenital or acquired thrombophilia Stroke (< 1 month) Elective arthroplasty Hip, pelvis, or leg fracture Acute spinal cord injury (< 1 month) Prophylaxis Regimen Total Risk Factor Score Risk Level Prophylaxis Regimen 0-1 Low Early ambulation 2 Moderate Order ONE of the following: *Sequential Compression Device (SCD) *Heparin 5000 units SQ BID 3-4 Higher Order ONE of the following medications: *Heparin 5000 units SQ TID *Enoxaparin/Lovenox 40 mg SQ daily (WT < 150 kg, CrCl > 30 mL/min) *Enoxaparin/Lovenox 30 mg SQ daily (WT < 150 kg, CrCl > 10-29 mL/min) *Enoxaparin/Lovenox 30 mg SQ BID (WT < 150 kg, CrCl > 30 mL/min) AND/OR *Sequential Compression Device (SCD) 5 or more Highest Order ONE of the following medications: *Heparin 5000 units SQ TID (Preferred with Epidurals) *Enoxaparin/Lovenox 40 mg SQ daily (WT < 150 kg, CrCl > 30 mL/min) *Enoxaparin/Lovenox 30 mg SQ daily (WT < 150 kg, CrCl > 10-29 mL/min) *Enoxaparin/Lovenox 30 mg SQ BID (WT < 150 kg, CrCl > 30 mL/min) AND *Sequential Compression Device (SCD) Assessment and Plan Assessment and Plan Diabetes, uncontrolled -Secondary to steroid use -Patient with mild pseudohyponatremia, mild acidosis with pH 7.29, beta hydroxybutyrate was normal -Status post insulin in the emergency department with significant improvement -Accu-Cheks with sliding scale insulin -Diabetic diet -Patient counseled on cessation of steroids at this time Acute renal failure superimposed on chronic kidney disease stage III with hyperkalemia -Improving with IV fluids and insulin -We will continue to hold ALBER inhibitor -Continue to follow renal functions, potassium level Hypertension, -Blood pressure appears stable, however patient is bradycardic -We will discontinue ALBER inhibitors secondary to acute renal failure and hyperkalemia -We will hold beta-blockers secondary to bradycardia -We will start amlodipine 5 mg daily Hyperlipidemia -Resume statin DVT prevention -Subcutaneous heparin Discharge disposition Discharge home in stable condition Activity: Ad lg. Diet: Diabetic diet Medication per medication reconciliation Follow-up with primary medical doctor in 1 week Aristeo Celaya Feb 17, 2018 11:14
[2018-02-17] MEDS ORDERED: amLODIPine BESYLATE 5 MG TAB PO SCH (11:15)
[2018-02-17 12:00] LABS: CALCIUM 8.7 MG/DL (8.5-10.1)
[2018-02-17 12:01] LABS: BICARBONATE 24.6 MEQ/L (21.0-32.0)
[2018-02-17 12:04] LABS: CREATININE 1.4 MG/DL (0.50-1.00)
--- NOTE | 2018-02-17 13:03 | HHI.DCPOC ---
Discharge Care Plan Diagnosis: (1) Acute renal failure superimposed on stage 3 chronic kidney disease (2) Steroid-induced hyperglycemia Goals to Promote Your Health * To prevent worsening of your condition and complications * To maintain your health at the optimal level Directions to Meet Your Goals Take your medications as prescribed Follow your dietary instruction Follow activity as directed Keep your appointments as scheduled Take your immunizations and boosters as scheduled If your symptoms worsen call your PCP, if no PCP go to Urgent Care Center or Emergency Room Smoking is Dangerous to Your Health. Avoid second hand smoke Call the 24-hour hour crisis hotline for domestic abuse at Aristeo Celaya Feb 17, 2018 13:03
[2018-02-17] MEDS ORDERED: AMLO5 PO (13:57)
--- NOTE | 2018-02-17 16:06 | EKG ---
Date Performed: 02/16/2018 Time Performed: 20:24:12 PTAGE: 67 years EKG: SINUS BRADYCARDIA SEPTAL MYOCARDIAL INFARCTION ABNORMAL ECG PREVIOUS TRACING : 02/07/2018 00.11 Since the prior tracing, criteria for the septal infarct ar e new. This may simply be on the basis of lead placement, but clinical correlation is advised. DOCTOR: Nickie Silver Interpretating Date/Time 02/17/2018 16:04:42
== END 2018-02-17 13:00 | disposition home or self-care (01) ==
LOC: PHED 19:21 → PHEDA 21:41 → PHICU 22:45
PROVIDERS: ADMIT Family Medicine; ATTEND Family Medicine
DX: T38.0X5A Adverse effect of glucocorticoids and synthetic analogues, initial encounter (principal); E11.10 Type 2 diabetes mellitus with ketoacidosis without coma; E11.40 Type 2 diabetes mellitus with diabetic neuropathy, unspecified; E07.9 Disorder of thyroid, unspecified; E11.22 Type 2 diabetes mellitus with diabetic chronic kidney disease; N18.3 Chronic kidney disease, stage 3 (moderate); I12.9 Hypertensive chronic kidney disease with stage 1 through stage 4 chronic kidney disease, or unspecified chronic kidney disease; J44.9 Chronic obstructive pulmonary disease, unspecified; Z90.710 Acquired absence of both cervix and uterus; M10.9 Gout, unspecified; F32.9 Major depressive disorder, single episode, unspecified; F41.9 Anxiety disorder, unspecified; F40.240 Claustrophobia; Z79.01 Long term (current) use of anticoagulants; M19.90 Unspecified osteoarthritis, unspecified site; E78.00 Pure hypercholesterolemia, unspecified; R07.9 Chest pain, unspecified; K92.1 Melena; K59.00 Constipation, unspecified; H40.9 Unspecified glaucoma; M79.605 Pain in left leg; G47.30 Sleep apnea, unspecified; Z79.899 Other long term (current) drug therapy; Z79.4 Long term (current) use of insulin; R94.31 Abnormal electrocardiogram [ECG] [EKG]; R06.02 Shortness of breath
CPT/HCPCS: 71045; 80048; 80053; 81001; 82010; 82805; 82948; 83690; 84484; 85025; 87641; 93005; 96361; 96372; 96374; 99285; G0378; J1644; J1815; J7030